=== PATIENT | male | born 1940 | race American Indian/Alaskan Native ===

== ENCOUNTER 2018-06-25 18:34 | Inpatient (IN) | payer MEDICARE ==
[2018-06-25 19:02] VITALS: BMI 20.3
[2018-06-25 19:11] LABS: BASO # 0.02 K/mm3 (0.0-2.0); BASO % 0.3 % (0.0-3.0); EOS % 0.5 % (1.5-5.0); GRAN # 4.03 (1.4-6.5); GRAN % 66.9 % (50.0-68.0); HEMOGLOBIN 13.1 g/dL (14.0-18.0); LYMPH # 1.5 (1.2-3.4); LYMPH % 24.8 % (22.0-35.0); MEAN CELL VOLUME 84.9 fl (80.0-105.0); MEAN CORPUSCULAR HEMOGLOBIN 27.4 pg (25.0-35.0); MEAN CORPUSCULAR HGB CONC 32.3 g/dl (31.0-37.0); MEAN PLATELET VOLUME 8.9 fl (7.0-11.0); MONO # 0.5 (0.1-0.6); MONO % 7.5 % (1.0-6.0); RBC 4.78 10^6/uL (3.5-6.1); RED CELL DISTRIBUTION WIDTH 14.5 % (11.5-14.5)
[2018-06-25 19:21] LABS: ALB/GLOB RATIO 1.1 (1.1-1.8); ALBUMIN 4.4 g/dL (3.0-4.8); BLOOD UREA NITROGEN 18 mg/dL (7-21); CALCIUM 8.9 mg/dL (8.4-10.5); GFR NON-AFRICAN AMERICAN > 60
--- NOTE | 2018-06-25 19:24 | ED PDOC ---
Arrival/HPI - General Time Seen by Provider: 06/25/18 18:44 Historian: Family - History of Present Illness Narrative History of Present Illness (Text): 06/25/18 19:15 77 year old male, with past medical history of CVA s/p right sided hemiparesis, presents to the ED via EMS accompanied by family s/p seizure prior to arrival. Daughter-in law states patient was sitting on the couch when he began "drooling", which was soon followed by tonic clonic activity. Patient was reportedly seizing for 2 minutes and then began foaming at the mouth. Daughter- in law states patient became pulseless following the incident, when she provided 1 round of compression with immediate return of circulation. EMS was immediately called and found patient to be diaphoretic and subsequently brought to the ED for evaluation. Upon arrival to the ED, patient appears post-ictal and does not verbalize any complaints. Son denies any fall or any medical complaints prior to incident. ROS limited secondary to patient's clinical condition. PMD: Dr. Cash Time/Duration: Prior to Arrival Symptom Onset: Gradual Symptom Course: Unchanged Activities at Onset: Light Context: Home Past Medical History - Provider Review Nursing Documentation Reviewed: Yes Family/Social History - Physician Review Nursing Documentation Reviewed: Yes Family/Social History: Unknown Family HX Allergies/Home Meds Allergies/Adverse Reactions: Allergies No Known Allergies Allergy (Verified 06/25/18 18:57) Home Medications: Home Meds Medication Instructions Recorded Confirmed Aspirin [Aspirin Chewable] 81 mg PO DAILY 06/25/18 06/25/18 Tamsulosin [Flomax] 0.4 mg PO DAILY 06/25/18 06/25/18 amLODIPine [Norvasc] 10 mg PO DAILY 06/25/18 06/25/18 Review of Systems - Review of Systems Systems not reviewed;Unavailable: Other (Post-ictal) Neurological: Seizure Physical Exam Vital Signs Reviewed: Yes Vital Signs Temp Pulse Resp BP Pulse Ox 06/25/18 19:15 98.1 F 97 H 20 143/61 97 Temperature: Afebrile Blood Pressure: Normal Pulse: Regular Respiratory Rate: Normal Appearance: Positive for: Well-Appearing, Non-Toxic, Comfortable Pain Distress: None Mental Status: Positive for: Confused Finger Stick Blood Glucose: 130 - Systems Exam Head: Present: Atraumatic, Normocephalic Pupils: Present: PERRL Extroacular Muscles: Present: EOMI Conjunctiva: Present: Normal Mouth: Present: Moist Mucous Membranes, Normal Tounge (no bite scott to tongue) Respiratory/Chest: Present: Good Air Exchange, Other (Crackles noted to right lung field ). No: Respiratory Distress, Accessory Muscle Use Cardiovascular: Present: Regular Rate and Rhythm, Normal S1, S2. No: Murmurs Abdomen: No: Tenderness, Distention, Peritoneal Signs Back: Present: Normal Inspection Upper Extremity: Present: Other (Right sided hemiparesis). No: Cyanosis, Edema Lower Extremity: Present: Other (Right sided hemiparesis). No: Edema Neurological: Present: GCS=15, CN II-XII Intact Skin: Present: Warm, Dry, Normal Color. No: Rashes Psychiatric: Present: Alert Medical Decision Making ED Course and Treatment: 06/25/18 18:59 Impression: 77 year old male presents to the ED for medical evaluation s/p seizure. Plan: -- CT of head -- EKG -- Labs -- Urinalysis -- Reassess and disposition Prior Visits: Notes and results from previous visits were reviewed. Progress Notes: 06/25/18 18:50 EKG: Ordered, reviewed, and independently interpreted the EKG. Rate : 76 BPM Rhythm : NSR Interpretation : Normal interval, left axis deviation. LVH. No ST elevations. EXAM: CT Head without Intravenous Contrast. Electronically signed on Jun 25, 2018 7:54:14 PM EST by: Barrie June M.D., IMPRESSION: 1. There is generalized parenchymal atrophy noted as demonstrated by symmetrical dilatation of ventricles and sulci. 2. Chronic periventricular and subcortical microvascular disease is seen. 3. Encephalomalacia involving left parietal lobe, compatible with an old infarct. 4. No acute intracranial pathology. 06/25/18 20:07 Witnessed seizure with tonic clonic movement. Given Ativan 2mg IV and seizure subsided. Paged resident for admission. 06/25/18 20:15 Case discussed with back office medical assistant and Dr. Bhavin Malone who is aware and agrees with the plan. Accepts patient into hospitalist service. - Lab Interpretations Lab Results: 06/25/18 19:04 Lab Results 06/25/18 19:04: WBC 6.0, RBC 4.78, Hgb 13.1 L, Hct 40.6 L, MCV 84.9, MCH 27.4, MCHC 32.3, RDW 14.5, Plt Count 265, MPV 8.9, Gran % 66.9, Lymph % (Auto) 24.8, [place] % (Auto) 7.5 H, Eos % (Auto) 0.5 L, Baso % (Auto) 0.3, Gran # 4.03, Lymph # (Auto) 1.5, [place] # (Auto) 0.5, Eos # (Auto) 0.0, Baso # (Auto) 0.02 - RAD Interpretation Radiology Orders: 06/25/18 19:00 HEAD W/O CONTRAST [CT] Stat - EKG Interpretation Interpreted by ED Physician: Yes Type: 12 lead EKG - Scribe Statement The provider has reviewed the documentation as recorded by the Scribe Gely Davison. All medical record entries made by the Марияibe were at my direction and personally dictated by me. I have reviewed the chart and agree that the record accurately reflects my personal performance of the history, physical exam, medical decision making, and the department course for this patient. I have also personally directed, reviewed, and agree with the discharge instructions and disposition. Disposition/Present on Arrival - Present on Arrival Any Indicators Present on Arrival: No History of DVT/PE: No History of Uncontrolled Diabetes: No Urinary Catheter: No History of Decub. Ulcer: No - Disposition Have Diagnosis and Disposition been Completed?: Yes Diagnosis: New onset seizure Disposition: HOSPITALIZED Disposition Time: 20:17 Patient Plan: Admission, Telemetry Condition: FAIR
[2018-06-25 19:32] LABS: TROPONIN I < 0.01 ng/mL
[2018-06-25 19:34] LABS: ALT/SGPT 21 U/L (7-56); AST/SGOT 43 U/L (17-59)
[2018-06-25] MEDS ORDERED: levETIRAcetam 1000mg/100ml NS 100 ML IV ONE (20:18)
[2018-06-25] MEDS ORDERED: levETIRAcetam 1000mg/100ml NS 100 ML IV SCH (22:00)
--- NOTE | 2018-06-25 22:10 | CP.PCM.HP ---
History of Present Illness - History of Present Illness History of Present Illness: Francisco Javier Varela DO PGY1 - Internal Medicine Warp Preparer - Medicine H&P 77M w/ a PMH of CVA w/ residual R sided deficit, HTN, BPH who prsented to [facility] ED on 06/25/18 brought in by ambulance after family members witnessed patient having seizure like symptoms prior to arrival. Due to patient's condition unable to obtain ROS/HPI from patient, HPI supplemented from family (Daughter in law and son at bedside, as well as chart review). Family reported patient was watching TV when he was found to have a blank staring ahead, and drooling while he was drinking water; developed rigid whole body stiffness, exhibited diffuse tonic/ clonic tremors of UE/LE and foaming at the mouth all which lasted for approximately 2 min. While on phone w/ EMS daughter reported patient lost pulses; became apneic and cyanotic. Subsequently underwent 1 round of CPR by daughter and ROSC was obtained. While patient was in ED; ED staff witnessed patient to have seizure like activity and administered Ativan 2mg IVP once. In the days prior to seizure no changes in vision, weakness. It was reported patient was independent and able to ambulate w/ walker within house. ROS unobtainable at this time due to patient condition. PMD: [facility] Rx: Norvasc 10mg QD, ASA 81 QD, Social: Denies PMH: As above PSH: TURP - October 2017 Allergies: NKDA Family Hx: Denies fam hx sz, Mother+ Father passed of [place] ; Son has DM Present on Admission - Present on Admission Any Indicators Present on Admission: No Review of Systems - Review of Systems Systems not reviewed;Unavailable: Acuity of Condition Past Patient History - Past Social History Smoking Status: Former Smoker - CARDIAC Hx Cardiac Disorders: Yes Hx Hypertension: Yes - NEUROLOGICAL Hx Neurological Disorder: Yes HX Cerebrovascular Accident: Yes (right side paralysis) - PSYCHIATRIC Hx Substance Use: No - SURGICAL HISTORY Hx Surgeries: No Meds Allergies/Adverse Reactions: Allergies Allergy/AdvReac Type Severity Reaction Status Date / Time No Known Allergies Allergy Verified 06/25/18 18:57 Physical Exam - Constitutional Additional comments: Lethargic/ Somnolent - Head Exam Head Exam: ATRAUMATIC, NORMOCEPHALIC - Eye Exam Additional comments: Difficult to assess tongue; due to persistent jaw clench Eyes: Pupils constricted however reactive to light; Rightward beating nystagmus appreciated; Pupils equal bilaterally - Respiratory Exam Respiratory Exam: Clear to Auscultation Bilateral, NORMAL BREATHING PATTERN - Cardiovascular Exam Cardiovascular Exam: REGULAR RHYTHM, RRR, +S1, +S2. absent: Systolic Murmur - GI/Abdominal Exam GI & Abdominal Exam: Normal Bowel Sounds, Soft - Extremities Exam Extremities exam: Positive for: pedal pulses present (BL DP/PT 1+ ). Negative for: pedal edema - Neurological Exam Additional comments: Not awake or alert Spontaneous eye movement w/ sternal rub Withdraws from pain GCS 9 Brisk reflex R > L - Skin Skin Exam: Dry, Intact, Normal Color, Warm Results - Vital Signs Recent Vital Signs: Last Vital Signs Temp 98.1 F 06/25/18 19:15 Pulse 96 H 06/25/18 20:47 Resp 23 06/25/18 20:47 BP 155/73 H 06/25/18 20:47 Pulse Ox 99 06/25/18 20:47 - Labs Result Diagrams: 06/25/18 19:04 06/25/18 19:04 Labs: Laboratory Results - last 24 hr 06/25/18 06/25/18 06/25/18 18:46 19:04 19:04 WBC 6.0 RBC 4.78 Hgb 13.1 L Hct 40.6 L MCV 84.9 MCH 27.4 MCHC 32.3 RDW 14.5 Plt Count 265 MPV 8.9 Gran % 66.9 Lymph % (Auto) 24.8 [place] % (Auto) 7.5 H Eos % (Auto) 0.5 L Baso % (Auto) 0.3 Gran # 4.03 Lymph # (Auto) 1.5 [place] # (Auto) 0.5 Eos # (Auto) 0.0 Baso # (Auto) 0.02 Sodium 139 Potassium 3.7 Chloride 103 Carbon Dioxide 22 Anion Gap 18 BUN 18 Creatinine 0.9 Est GFR ( Amer) > 60 Est GFR (Non-Af Amer) > 60 POC Glucose (mg/dL) 130 H Random Glucose 131 H Calcium 8.9 Magnesium 2.2 Total Bilirubin 0.5 AST 43 ALT 21 Alkaline Phosphatase 81 Lactate Dehydrogenase 649 Total Creatine Kinase 143 Troponin I < 0.01 Total Protein 8.3 Albumin 4.4 Globulin 3.9 Albumin/Globulin Ratio 1.1 Alcohol, Quantitative 12/31/18 19:04 WBC RBC Hgb Hct MCV MCH MCHC RDW Plt Count MPV Gran % Lymph % (Auto) [place] % (Auto) Eos % (Auto) Baso % (Auto) Gran # Lymph # (Auto) [place] # (Auto) Eos # (Auto) Baso # (Auto) Sodium Potassium Chloride Carbon Dioxide Anion Gap BUN Creatinine Est GFR ( Amer) Est GFR (Non-Af Amer) POC Glucose (mg/dL) Random Glucose Calcium Magnesium Total Bilirubin AST ALT Alkaline Phosphatase Lactate Dehydrogenase Total Creatine Kinase Troponin I Total Protein Albumin Globulin Albumin/Globulin Ratio Alcohol, Quantitative < 10 Assessment & Plan - Assessment and Plan (Free Text) Assessment: 77M w/ a PMH of CVA w/ residual R sided deficit but retained independence in ADLs, HTN, BPH who prsented to [facility] ED on 06/25/18 brought in by ambulance after family members witnessed patient having seizure like symptoms prior to arrival. Patient to be admitted to ICU for management/ treatment of New onset seizure vs worsening of preexisting stroke vs new onset stroke, ACS r/o, and Aspiration pna. New Onset Seizure - Etiology uncertain however given PMH of stroke, must r/o new onset stroke or worsening of previous stroke Difficult to assess for new onset focal deficit at this time ; repeat seizure witnessed in the ED 06/25 - CT Head - No acute stroke; prior Left parietal infarct visualized, Chronic microvascular disease MRI Brain pending Will load w/ ASA 600mg Recta x1 now; Will hold home lipitor due to NPO Start ASA 300mg rectal QD 06/26 Start ativan 2mg Q4H PRN seizure Loaded w/ 1gm Keppra in ED Start 1gm Keppra Q12 on 05/26 Seizure precaution Fall precaution Strict NPO for now Swallow eval/ tx PT Eval + Tx Monitor neuro status; Neuro Consulted, Appreciate reccs ACS r/o Patient underwent 1 round CPR in field as per family member; Daughter reports patient possibly aspirated during seizure episode (was drinking water prior to episode) First Trop negative; Will trend trop x2 over 24H EKG in ED shows no ST elevation; Will need to compare w/ baseline - Repeat EKG in AM Lipid panel pending HbA1C pending Maintain Map >65 Cardiology consulted, appreciate reccs Aspiration PNA vs Chemical Pneumonitis 06/25 - CXR does not show any infiltrate or effusion - as interpreted by me Repeat CXR AM ABG w/ shock NOW to establish baseline; Evaluate lactate Repeat ABG AM F/u wbc in AM End tidal CO2 - r/o retention Maintain O2 Sat >95% HOB >45deg; Aspiration precautions Hx HTN Will allow permissive HTN Hold Home norvasc Avoid aggressive and sudden blood pressure drops due to risk of watershed infarct Maintain SBP <220; Diastolic <110 Prophylaxis GI: Protonix IVP DVT: Heparin 5000 Q12 Patient was seen and evaluated at bedside; w/ attending physician Dr. Kira Varela DO PGY1 Internal Medicine Warp Preparer - Medicine H&P - Date & Time Date: 06/26/18 Time: 00:05
[2018-06-25 22:45] LABS: ARTERIAL BLOOD GAS HCO3 27.2 mmol/L (21-28); ARTERIAL BLOOD GAS O2 SAT 98.4 % (95-98); ARTERIAL BLOOD GAS PCO2 46 mm/Hg (35-45); ARTERIAL BLOOD GAS PH 7.38 (7.35-7.45); ARTERIAL BLOOD GAS TCO2 28.6 mmol.L (22-28)
[2018-06-26 00:57] LABS: PH,URINE 6.5 (4.7-8.0); URINE BILIRUBIN NEGATIVE (NEGATIVE); URINE BLOOD SMALL (NEGATIVE); URINE GLUCOSE (UA) NEGATIVE (NEGATIVE); URINE LEUKOCYTE ESTERASE SMALL Leu/uL (NEGATIVE); URINE PROTEIN 30 mg/dL (<30 mg/dL); URINE UROBILINOGEN 0.2 E.U./dL (<1 E.U./dL)
[2018-06-26 00:58] LABS: URINE APPEARANCE SL CLOUDY (CLEAR); URINE COLOR YELLOW (YELLOW)
[2018-06-26 01:15] LABS: URINE BACTERIA MANY /hpf; URINE EPITHELIAL CELLS 0 - 2 /hpf (0-5)
[2018-06-26 02:02] LABS: BARBITURATES, UR NEGATIVE (NEGATIVE); BENZODIAZEPINES, UR NEGATIVE (NEGATIVE); OPIATES, UR NEGATIVE (NEGATIVE); PHENCYCLIDINE, UR NEGATIVE (NEGATIVE)
[2018-06-26 05:49] LABS: GRAN # 5.68 (1.4-6.5); GRAN % 78.9 % (50.0-68.0); MEAN CELL VOLUME 82.2 fl (80.0-105.0); MEAN CORPUSCULAR HEMOGLOBIN 26.4 pg (25.0-35.0); MEAN CORPUSCULAR HGB CONC 32.2 g/dl (31.0-37.0); MONO # 0.5 (0.1-0.6); MONO % 7.1 % (1.0-6.0); RBC 4.54 10^6/uL (3.5-6.1); RED CELL DISTRIBUTION WIDTH 14.3 % (11.5-14.5); WHITE BLOOD COUNT 7.2 10^3/uL (4.5-11.0)
[2018-06-26 06:06] LABS: LDL CHOLESTEROL 79 mg/dL (0-129)
[2018-06-26 06:46] LABS: ALB/GLOB RATIO 1.1 (1.1-1.8); ALBUMIN 3.7 g/dL (3.0-4.8); ALT/SGPT 31 U/L (7-56); AST/SGOT 34 U/L (17-59); BLOOD UREA NITROGEN 13 mg/dL (7-21); CALCIUM 8.9 mg/dL (8.4-10.5); GFR NON-AFRICAN AMERICAN > 60; HDL CHOLESTEROL 51 mg/dL (29-60)
--- NOTE | 2018-06-26 09:08 | CP.PCM.CON ---
<AveryBiju - Last Filed: 06/26/18 11:39> History of Present Illness - History of Present Illness History of Present Illness: Biju Varela Internal Medicine Resident- Consult Note on Behalf of Critical Care Team Subjective: Patient is a 77 year old male with a past medical history of CVA w/ residual R sided deficit, HTN, BPH who was admitted for evaluation and treatment of witnessed seizure like activity. As per records the event included tonic/clonic tremors of UE/LE and foaming at the mouth which lasted approximately 2 minutes. Additionally it was reported that the patient lost pulses and cyanotic during the eposide. ROSC was obtained s/p 1 round of cpr. Seizure like activity again noted in the emergency department which subsided after Ativan 2mg IVP once. Critical care team was consulted for management of aforementioned symptoms. Patient seen and examined at bedside. Patient is awake, alert, follows commands, but is aphasic. Offers no complaints at this time. Denies fever, chills, chest pain, SOB, abdominal pain, nausea, vomiting, diarrhea, constipation, and urinary symptoms. 12 point ROS negative except as indicated in the HPI PMHx: CVA w/ residual R sided deficit, HTN, BPH PSHx: TURP - October 2017 Allergies: NKDA Social hHx: as per records - negative ETOH, negative tobacco use, negative illicit drug use Family Hx: Mother and Father passed of [place] Home Rx: Norvasc 10mg QD, ASA 81 QD, PMD: [facility] Physical Examination: - Constitutional Additional comments: NAD, resting comfortably - Head Exam Head Exam: ATRAUMATIC, NORMOCEPHALIC - Eye Exam Eye Exam: EOMI, OLGA - Respiratory Exam Respiratory Exam: Clear to Auscultation Bilateral, NORMAL BREATHING PATTERN - Cardiovascular Exam Cardiovascular Exam: REGULAR RHYTHM, RRR, +S1, +S2. absent: Systolic Murmur - GI/Abdominal Exam GI & Abdominal Exam: Normal Bowel Sounds, Soft - Extremities Exam Extremities exam: no clubbing, no cyanosis, no edema - Neurological Exam Neurological Exam: awake, alert, responds to verbal stimuli, follows commands, moves extremities past midline, aphasic speech pattern - Skin Skin Exam: Dry, Intact, Normal Color, Warm Assessment and Plan: Patient is a 77 year old male with a past medical history of CVA w/ residual R sided deficit, HTN, BPH who was admitted for evaluation and treatment of witnessed seizure like activity and pulselessness. Patient was transferred to the intensive care unit for further management. Neurology: New Onset Seizure - 06/25 CT Head without Intravenous Contrast-1. There is generalized parenchymal atrophy noted as demonstrated by symmetrical dilatation of ventricles and sulci. 2. Chronic periventricular and subcortical microvascular disease is seen. 3. Encephalomalacia involving left parietal lobe, compatible with an old infarct. 4. No acute intracranial patholog - Brain MRI Brain without contrast ordered and pending - Will hold home lipitor due to NPO - continue ativan 2mg Q4H PRN seizure - Continue keppra 1000mg IV q12 - Start 1gm Keppra Q12 on 06/26/18 - Seizure precaution - Fall precaution - Strict NPO for now - Swallow eval/ tx - PT Eval + Tx - Neuro Consulted (Dr. Damian)- Appreciate recs Cardiovascular ACS r/o - EKG on admission- normal sinus rhythm- HR 76bpm, QTc 447ms - Troponin normal x 2 - Lipid panel- reviewed- no elevated lipid products - HbA1C pending - Maintain Map > 65 - Cardiology consulted (Dr. Cohn)- appreciate recommendations Hx HTN - Will allow permissive HTN - Hold Home norvasc Pulmnology - 06/25- CXR no active disease - Maintain O2 Sat >95% - HOB > 45deg; Aspiration precautions GI Prophylaxis - continue Protonix 40mg IV Daily Heme Anemia - normocytic - 12 from 13.1 - monitor closely via AM CBC Renal Hypokalemia - repleted with KCl 10 meq x 2 - mag within normal limits Infectious Disease Urinary Tract Infection - will not treat at this time Dispo: patient is hemodynamically stable [facility] Patient case discussed with and plan approved by attending physician, Dr. Malone. Past Patient History - Past Social History Smoking Status: Former Smoker - CARDIAC Hx Cardiac Disorders: Yes Hx Hypertension: Yes - PULMONARY Hx Respiratory Disorders: No - NEUROLOGICAL Hx Neurological Disorder: Yes HX Cerebrovascular Accident: Yes (right side paralysis) - HEENT Hx HEENT Problems: No - RENAL Hx Chronic Kidney Disease: No - ENDOCRINE/METABOLIC Hx Endocrine Disorders: No - HEMATOLOGICAL/ONCOLOGICAL Hx Blood Disorders: No - INTEGUMENTARY Hx Dermatological Problems: No - MUSCULOSKELETAL/RHEUMATOLOGICAL Hx Falls: Yes - GASTROINTESTINAL Hx Gastrointestinal Disorders: No - GENITOURINARY/GYNECOLOGICAL Hx Genitourinary Disorders: No - PSYCHIATRIC Hx Substance Use: No - SURGICAL HISTORY Hx Surgeries: No Meds Allergies/Adverse Reactions: Allergies Allergy/AdvReac Type Severity Reaction Status Date / Time No Known Allergies Allergy Verified 06/25/18 18:57 - Medications Medications: Current Medications Aspirin (Aspirin Supp) 300 mg RC DAILY [facility] Heparin Sodium (Porcine) (Heparin) 5,000 units SC Q12 [facility]; Protocol Last Admin: 06/26/18 01:17 Dose: 5,000 units Levetiracetam (Keppra 1000mg/100ml Ns) 100 mls @ 460 mls/hr IV Q12 [facility] Potassium Chloride (Potassium Chloride 10 Meq/100 Ml) 10 meq in 100 mls @ 50 mls/hr IVPB Q2H [facility] Stop: 06/26/18 10:59 Last Admin: 06/26/18 07:23 Dose: 50 mls/hr Lorazepam (Ativan) 2 mg IVP Q4H PRN; Protocol PRN Reason: Seizure activity Pantoprazole Sodium (Protonix Inj) 40 mg IVP DAILY [facility] Results - Vital Signs Recent Vital Signs: Last Vital Signs Temp 98.3 F 06/25/18 22:30 Pulse 83 06/26/18 06:00 Resp 23 06/25/18 22:30 BP 153/85 H 06/25/18 22:30 Pulse Ox 98 06/25/18 22:30 - Labs Result Diagrams: 06/26/18 05:00 06/26/18 05:00 Labs: Laboratory Results - last 24 hr 06/25/18 06/25/18 06/25/18 18:46 19:04 19:04 WBC 6.0 RBC 4.78 Hgb 13.1 L Hct 40.6 L MCV 84.9 MCH 27.4 MCHC 32.3 RDW 14.5 Plt Count 265 MPV 8.9 Gran % 66.9 Lymph % (Auto) 24.8 [place] % (Auto) 7.5 H Eos % (Auto) 0.5 L Baso % (Auto) 0.3 Gran # 4.03 Lymph # (Auto) 1.5 [place] # (Auto) 0.5 Eos # (Auto) 0.0 Baso # (Auto) 0.02 pCO2 pO2 HCO3 ABG pH ABG Total CO2 ABG O2 Saturation ABG Base Excess ABG Potassium Glucose Lactate FiO2 Sodium 139 Potassium 3.7 Chloride 103 Carbon Dioxide 22 Anion Gap 18 BUN 18 Creatinine 0.9 Est GFR ( Amer) > 60 Est GFR (Non-Af Amer) > 60 POC Glucose (mg/dL) 130 H Random Glucose 131 H Calcium 8.9 Phosphorus Magnesium 2.2 Total Bilirubin 0.5 AST 43 ALT 21 Alkaline Phosphatase 81 Lactate Dehydrogenase 649 Total Creatine Kinase 143 Troponin I < 0.01 Total Protein 8.3 Albumin 4.4 Globulin 3.9 Albumin/Globulin Ratio 1.1 Triglycerides Cholesterol LDL Cholesterol Direct HDL Cholesterol Arterial Blood Potassium Urine Color Urine Appearance Urine pH Ur Specific [place] Urine Protein Urine Glucose (UA) Urine Ketones Urine Blood Urine Nitrate Urine Bilirubin Urine Urobilinogen Ur Leukocyte Esterase Urine RBC Urine WBC Ur Epithelial Cells Urine Bacteria Urine Opiates Screen Urine Methadone Screen Ur Barbiturates Screen Ur Phencyclidine Scrn Ur Amphetamines Screen U Benzodiazepines Scrn U Oth Cocaine Metabols U Cannabinoids Screen Alcohol, Quantitative 06/25/18 06/25/18 06/26/18 19:04 22:42 00:45 WBC RBC Hgb Hct MCV MCH MCHC RDW Plt Count MPV Gran % Lymph % (Auto) [place] % (Auto) Eos % (Auto) Baso % (Auto) Gran # Lymph # (Auto) [place] # (Auto) Eos # (Auto) Baso # (Auto) pCO2 46 H pO2 89.0 HCO3 27.2 ABG pH 7.38 ABG Total CO2 28.6 H ABG O2 Saturation 98.4 H ABG Base Excess 1.5 ABG Potassium 3.1 L Glucose 125 H Lactate 0.9 FiO2 28.0 Sodium 138.0 Potassium Chloride 104.0 Carbon Dioxide Anion Gap BUN Creatinine Est GFR ( Amer) Est GFR (Non-Af Amer) POC Glucose (mg/dL) Random Glucose Calcium Phosphorus Magnesium Total Bilirubin AST ALT Alkaline Phosphatase Lactate Dehydrogenase Total Creatine Kinase Troponin I Total Protein Albumin Globulin Albumin/Globulin Ratio Triglycerides Cholesterol LDL Cholesterol Direct HDL Cholesterol Arterial Blood Potassium 3.1 L Urine Color Yellow Urine Appearance Sl cloudy Urine pH 6.5 Ur Specific [place] 1.020 Urine Protein 30 H Urine Glucose (UA) Negative Urine Ketones Negative Urine Blood Small H Urine Nitrate Positive H Urine Bilirubin Negative Urine Urobilinogen 0.2 Ur Leukocyte Esterase Small H Urine RBC 5 - 10 H Urine WBC 5 - 10 H Ur Epithelial Cells 0 - 2 Urine Bacteria Many Urine Opiates Screen Urine Methadone Screen Ur Barbiturates Screen Ur Phencyclidine Scrn Ur Amphetamines Screen U Benzodiazepines Scrn U Oth Cocaine Metabols U Cannabinoids Screen Alcohol, Quantitative < 10 06/26/18 06/26/18 06/26/18 00:45 03:25 05:00 WBC RBC Hgb Hct MCV MCH MCHC RDW Plt Count MPV Gran % Lymph % (Auto) [place] % (Auto) Eos % (Auto) Baso % (Auto) Gran # Lymph # (Auto) [place] # (Auto) Eos # (Auto) Baso # (Auto) pCO2 pO2 HCO3 ABG pH ABG Total CO2 ABG O2 Saturation ABG Base Excess ABG Potassium Glucose Lactate FiO2 Sodium 137 Potassium 3.5 L Chloride 105 Carbon Dioxide 27 Anion Gap 9 L BUN 13 Creatinine 0.7 L Est GFR ( Amer) > 60 Est GFR (Non-Af Amer) > 60 POC Glucose (mg/dL) Random Glucose 96 Calcium 8.9 Phosphorus 2.8 Magnesium 2.0 Total Bilirubin 0.4 AST 34 ALT 31 Alkaline Phosphatase 82 Lactate Dehydrogenase Total Creatine Kinase Troponin I 0.02 D Total Protein 7.1 Albumin 3.7 Globulin 3.4 Albumin/Globulin Ratio 1.1 Triglycerides 30 L Cholesterol 136 LDL Cholesterol Direct 79 HDL Cholesterol 51 Arterial Blood Potassium Urine Color Urine Appearance Urine pH Ur Specific [place] Urine Protein Urine Glucose (UA) Urine Ketones Urine Blood Urine Nitrate Urine Bilirubin Urine Urobilinogen Ur Leukocyte Esterase Urine RBC Urine WBC Ur Epithelial Cells Urine Bacteria Urine Opiates Screen Negative Urine Methadone Screen Negative Ur Barbiturates Screen Negative Ur Phencyclidine Scrn Negative Ur Amphetamines Screen Negative U Benzodiazepines Scrn Negative U Oth Cocaine Metabols Negative U Cannabinoids Screen Negative Alcohol, Quantitative 06/26/18 05:00 WBC 7.2 RBC 4.54 Hgb 12.0 L Hct 37.3 L MCV 82.2 MCH 26.4 MCHC 32.2 RDW 14.3 Plt Count 270 MPV 9.0 Gran % 78.9 H Lymph % (Auto) 14.0 L [place] % (Auto) 7.1 H Eos % (Auto) 0.0 L Baso % (Auto) 0.0 Gran # 5.68 Lymph # (Auto) 1.0 L [place] # (Auto) 0.5 Eos # (Auto) 0.0 Baso # (Auto) 0.00 pCO2 pO2 HCO3 ABG pH ABG Total CO2 ABG O2 Saturation ABG Base Excess ABG Potassium Glucose Lactate FiO2 Sodium Potassium Chloride Carbon Dioxide Anion Gap BUN Creatinine Est GFR ( Amer) Est GFR (Non-Af Amer) POC Glucose (mg/dL) Random Glucose Calcium Phosphorus Magnesium Total Bilirubin AST ALT Alkaline Phosphatase Lactate Dehydrogenase Total Creatine Kinase Troponin I Total Protein Albumin Globulin Albumin/Globulin Ratio Triglycerides Cholesterol LDL Cholesterol Direct HDL Cholesterol Arterial Blood Potassium Urine Color Urine Appearance Urine pH Ur Specific [place] Urine Protein Urine Glucose (UA) Urine Ketones Urine Blood Urine Nitrate Urine Bilirubin Urine Urobilinogen Ur Leukocyte Esterase Urine RBC Urine WBC Ur Epithelial Cells Urine Bacteria Urine Opiates Screen Urine Methadone Screen Ur Barbiturates Screen Ur Phencyclidine Scrn Ur Amphetamines Screen U Benzodiazepines Scrn U Oth Cocaine Metabols U Cannabinoids Screen Alcohol, Quantitative <Deo Malone - Last Filed: 06/26/18 17:21> Meds - Medications Medications: Current Medications Aspirin (Ecotrin) 325 mg PO DAILY [facility] Atorvastatin Calcium (Lipitor) 20 mg PO DIN [facility] Last Admin: 06/26/18 17:13 Dose: 20 mg Heparin Sodium (Porcine) (Heparin) 5,000 units SC Q12 [facility]; Protocol Last Admin: 06/26/18 09:43 Dose: 5,000 units Levetiracetam (Keppra 1000mg/100ml Ns) 100 mls @ 460 mls/hr IV Q12 [facility] Last Admin: 06/26/18 09:42 Dose: 460 mls/hr Ceftriaxone Sodium (Rocephin 1 Gram Ivpb) 1 gm in 100 mls @ 100 mls/hr IVPB DAILY [facility]; Protocol Last Admin: 06/26/18 17:13 Dose: 100 mls/hr Lorazepam (Ativan) 2 mg IVP Q4H PRN; Protocol PRN Reason: Seizure activity Pantoprazole Sodium (Protonix Inj) 40 mg IVP DAILY [facility] Last Admin: 06/26/18 09:42 Dose: 40 mg Results - Vital Signs Recent Vital Signs: Last Vital Signs Temp 98.3 F 06/25/18 22:30 Pulse 80 06/26/18 10:00 Resp 23 06/25/18 22:30 BP 153/85 H 06/25/18 22:30 Pulse Ox 98 06/25/18 22:30 - Labs Result Diagrams: 06/26/18 05:00 06/26/18 05:00 Labs: Laboratory Results - last 24 hr 06/25/18 06/25/18 06/25/18 18:46 19:04 19:04 WBC 6.0 RBC 4.78 Hgb 13.1 L Hct 40.6 L MCV 84.9 MCH 27.4 MCHC 32.3 RDW 14.5 Plt Count 265 MPV 8.9 Gran % 66.9 Lymph % (Auto) 24.8 [place] % (Auto) 7.5 H Eos % (Auto) 0.5 L Baso % (Auto) 0.3 Gran # 4.03 Lymph # (Auto) 1.5 [place] # (Auto) 0.5 Eos # (Auto) 0.0 Baso # (Auto) 0.02 pCO2 pO2 HCO3 ABG pH ABG Total CO2 ABG O2 Saturation ABG Base Excess ABG Potassium Glucose Lactate FiO2 Sodium 139 Potassium 3.7 Chloride 103 Carbon Dioxide 22 Anion Gap 18 BUN 18 Creatinine 0.9 Est GFR ( Amer) > 60 Est GFR (Non-Af Amer) > 60 POC Glucose (mg/dL) 130 H Random Glucose 131 H Calcium 8.9 Phosphorus Magnesium 2.2 Total Bilirubin 0.5 AST 43 ALT 21 Alkaline Phosphatase 81 Lactate Dehydrogenase 649 Total Creatine Kinase 143 Troponin I < 0.01 Total Protein 8.3 Albumin 4.4 Globulin 3.9 Albumin/Globulin Ratio 1.1 Triglycerides Cholesterol LDL Cholesterol Direct HDL Cholesterol Arterial Blood Potassium Urine Color Urine Appearance Urine pH Ur Specific [place] Urine Protein Urine Glucose (UA) Urine Ketones Urine Blood Urine Nitrate Urine Bilirubin Urine Urobilinogen Ur Leukocyte Esterase Urine RBC Urine WBC Ur Epithelial Cells Urine Bacteria Urine Opiates Screen Urine Methadone Screen Ur Barbiturates Screen Ur Phencyclidine Scrn Ur Amphetamines Screen U Benzodiazepines Scrn U Oth Cocaine Metabols U Cannabinoids Screen Alcohol, Quantitative 06/25/18 06/25/18 06/26/18 19:04 22:42 00:45 WBC RBC Hgb Hct MCV MCH MCHC RDW Plt Count MPV Gran % Lymph % (Auto) [place] % (Auto) Eos % (Auto) Baso % (Auto) Gran # Lymph # (Auto) [place] # (Auto) Eos # (Auto) Baso # (Auto) pCO2 46 H pO2 89.0 HCO3 27.2 ABG pH 7.38 ABG Total CO2 28.6 H ABG O2 Saturation 98.4 H ABG Base Excess 1.5 ABG Potassium 3.1 L Glucose 125 H Lactate 0.9 FiO2 28.0 Sodium 138.0 Potassium Chloride 104.0 Carbon Dioxide Anion Gap BUN Creatinine Est GFR ( Amer) Est GFR (Non-Af Amer) POC Glucose (mg/dL) Random Glucose Calcium Phosphorus Magnesium Total Bilirubin AST ALT Alkaline Phosphatase Lactate Dehydrogenase Total Creatine Kinase Troponin I Total Protein Albumin Globulin Albumin/Globulin Ratio Triglycerides Cholesterol LDL Cholesterol Direct HDL Cholesterol Arterial Blood Potassium 3.1 L Urine Color Yellow Urine Appearance Sl cloudy Urine pH 6.5 Ur Specific [place] 1.020 Urine Protein 30 H Urine Glucose (UA) Negative Urine Ketones Negative Urine Blood Small H Urine Nitrate Positive H Urine Bilirubin Negative Urine Urobilinogen 0.2 Ur Leukocyte Esterase Small H Urine RBC 5 - 10 H Urine WBC 5 - 10 H Ur Epithelial Cells 0 - 2 Urine Bacteria Many Urine Opiates Screen Urine Methadone Screen Ur Barbiturates Screen Ur Phencyclidine Scrn Ur Amphetamines Screen U Benzodiazepines Scrn U Oth Cocaine Metabols U Cannabinoids Screen Alcohol, Quantitative < 10 06/26/18 06/26/18 06/26/18 00:45 03:25 05:00 WBC RBC Hgb Hct MCV MCH MCHC RDW Plt Count MPV Gran % Lymph % (Auto) [place] % (Auto) Eos % (Auto) Baso % (Auto) Gran # Lymph # (Auto) [place] # (Auto) Eos # (Auto) Baso # (Auto) pCO2 pO2 HCO3 ABG pH ABG Total CO2 ABG O2 Saturation ABG Base Excess ABG Potassium Glucose Lactate FiO2 Sodium 137 Potassium 3.5 L Chloride 105 Carbon Dioxide 27 Anion Gap 9 L BUN 13 Creatinine 0.7 L Est GFR ( Amer) > 60 Est GFR (Non-Af Amer) > 60 POC Glucose (mg/dL) Random Glucose 96 Calcium 8.9 Phosphorus 2.8 Magnesium 2.0 Total Bilirubin 0.4 AST 34 ALT 31 Alkaline Phosphatase 82 Lactate Dehydrogenase Total Creatine Kinase Troponin I 0.02 D Total Protein 7.1 Albumin 3.7 Globulin 3.4 Albumin/Globulin Ratio 1.1 Triglycerides 30 L Cholesterol 136 LDL Cholesterol Direct 79 HDL Cholesterol 51 Arterial Blood Potassium Urine Color Urine Appearance Urine pH Ur Specific [place] Urine Protein Urine Glucose (UA) Urine Ketones Urine Blood Urine Nitrate Urine Bilirubin Urine Urobilinogen Ur Leukocyte Esterase Urine RBC Urine WBC Ur Epithelial Cells Urine Bacteria Urine Opiates Screen Negative Urine Methadone Screen Negative Ur Barbiturates Screen Negative Ur Phencyclidine Scrn Negative Ur Amphetamines Screen Negative U Benzodiazepines Scrn Negative U Oth Cocaine Metabols Negative U Cannabinoids Screen Negative Alcohol, Quantitative 06/26/18 06/26/18 05:00 11:30 WBC 7.2 RBC 4.54 Hgb 12.0 L Hct 37.3 L MCV 82.2 MCH 26.4 MCHC 32.2 RDW 14.3 Plt Count 270 MPV 9.0 Gran % 78.9 H Lymph % (Auto) 14.0 L [place] % (Auto) 7.1 H Eos % (Auto) 0.0 L Baso % (Auto) 0.0 Gran # 5.68 Lymph # (Auto) 1.0 L [place] # (Auto) 0.5 Eos # (Auto) 0.0 Baso # (Auto) 0.00 pCO2 pO2 HCO3 ABG pH ABG Total CO2 ABG O2 Saturation ABG Base Excess ABG Potassium Glucose Lactate FiO2 Sodium Potassium Chloride Carbon Dioxide Anion Gap BUN Creatinine Est GFR ( Amer) Est GFR (Non-Af Amer) POC Glucose (mg/dL) Random Glucose Calcium Phosphorus Magnesium Total Bilirubin AST ALT Alkaline Phosphatase Lactate Dehydrogenase Total Creatine Kinase Troponin I < 0.01 D Total Protein Albumin Globulin Albumin/Globulin Ratio Triglycerides Cholesterol LDL Cholesterol Direct HDL Cholesterol Arterial Blood Potassium Urine Color Urine Appearance Urine pH Ur Specific [place] Urine Protein Urine Glucose (UA) Urine Ketones Urine Blood Urine Nitrate Urine Bilirubin Urine Urobilinogen Ur Leukocyte Esterase Urine RBC Urine WBC Ur Epithelial Cells Urine Bacteria Urine Opiates Screen Urine Methadone Screen Ur Barbiturates Screen Ur Phencyclidine Scrn Ur Amphetamines Screen U Benzodiazepines Scrn U Oth Cocaine Metabols U Cannabinoids Screen Alcohol, Quantitative Addendum Addendum: 06/26/18 17:21 Patient seen and examined. Case reviewed on round with housestaff. Agree with resident note above with the following additions/exceptions 77 year old male with a past medical history of CVA w/ residual R sided deficit, HTN, BPH admitted after being unresponsive at home. Doubt he went into cardiac arrest since only reports a brife chest compressions done at home. Likelly post-ictal state patient much improved this am following commands loaded with keppra f/u neuro recs for tx of seziures along with work up he appears to be able to maintain his own airway he does not appear to be in status can be downgraded from ICU level care Rest of care above Deo Malone MD Pulmonary Critical Care Attending
--- NOTE | 2018-06-26 09:22 | CT ---
Date of service: 06/25/2018 PROCEDURE: CT HEAD WITHOUT CONTRAST. HISTORY: seizure COMPARISON: None available. TECHNIQUE: Axial computed tomography images were obtained through the head/brain without intravenous contrast. Radiation dose: Total exam DLP = 1279.8 mGy-cm. This CT exam was performed using one or more of the following dose reduction techniques: Automated exposure control, adjustment of the mA and/or kV according to patient size, and/or use of iterative reconstruction technique. FINDINGS: HEMORRHAGE: No intracranial hemorrhage. BRAIN: No mass effect or edema. Atrophy. Chronic microvascular ischemic changes. Left parietal lobe encephalomalacia. Old left cerebellar infarction. VENTRICLES: Unremarkable. No hydrocephalus. CALVARIUM: Unremarkable. PARANASAL SINUSES: Unremarkable as visualized. No significant inflammatory changes. MASTOID AIR CELLS: Unremarkable as visualized. No inflammatory changes. OTHER FINDINGS: None. IMPRESSION: No acute intracranial pathology. Old left parietal and cerebellar infarctions. Age-related changes.
[2018-06-26] MEDS: levETIRAcetam 1000mg/100ml NS 100 ML IV SCH ×2 (09:42→21:50)
--- NOTE | 2018-06-26 10:10 | RAD ---
Date of service: 06/25/2018 HISTORY: seizure COMPARISON: No prior. FINDINGS: LUNGS: No active pulmonary disease. PLEURA: No significant pleural effusion identified, no pneumothorax apparent. CARDIOVASCULAR: Aortic atherosclerotic calcifications. Cardiomediastinal silhouette prominent OSSEOUS STRUCTURES: Degenerative changes. VISUALIZED UPPER ABDOMEN: Normal. OTHER FINDINGS: None. IMPRESSION: No active disease.
--- NOTE | 2018-06-26 10:38 | CARD ---
APPROVED REPORT Date of service: 06/25/2018 EKG Measurement Heart [id number] <Conclusion> Poor data quality, interpretation may be adversely affected Normal sinus rhythm Possible Left atrial enlargement Left ventricular hypertrophy Inferior infarct, age undetermined Abnormal ECG
--- NOTE | 2018-06-26 14:08 | CP.PCM.CON ---
History of Present Illness - History of Present Illness History of Present Illness: 77 yr old male who was brought in with what appears to be status epilpeticus. 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 Past Patient History - Past Social History Smoking Status: Former Smoker - CARDIAC Hx Cardiac Disorders: Yes Hx Hypertension: Yes - PULMONARY Hx Respiratory Disorders: No - NEUROLOGICAL Hx Neurological Disorder: Yes HX Cerebrovascular Accident: Yes (right side paralysis) - HEENT Hx HEENT Problems: No - RENAL Hx Chronic Kidney Disease: No - ENDOCRINE/METABOLIC Hx Endocrine Disorders: No - HEMATOLOGICAL/ONCOLOGICAL Hx Blood Disorders: No - INTEGUMENTARY Hx Dermatological Problems: No - MUSCULOSKELETAL/RHEUMATOLOGICAL Hx Falls: Yes - GASTROINTESTINAL Hx Gastrointestinal Disorders: No - GENITOURINARY/GYNECOLOGICAL Hx Genitourinary Disorders: No - PSYCHIATRIC Hx Substance Use: No - SURGICAL HISTORY Hx Surgeries: No Meds Allergies/Adverse Reactions: Allergies Allergy/AdvReac Type Severity Reaction Status Date / Time No Known Allergies Allergy Verified 06/27/18 09:03 - Medications Medications: Current Medications Aspirin (Aspirin Supp) 300 mg RC DAILY [facility] Heparin Sodium (Porcine) (Heparin) 5,000 units SC Q12 [facility]; Protocol Last Admin: 06/26/18 09:43 Dose: 5,000 units Levetiracetam (Keppra 1000mg/100ml Ns) 100 mls @ 460 mls/hr IV Q12 [facility] Last Admin: 06/26/18 09:42 Dose: 460 mls/hr Lorazepam (Ativan) 2 mg IVP Q4H PRN; Protocol PRN Reason: Seizure activity Pantoprazole Sodium (Protonix Inj) 40 mg IVP DAILY [facility] Last Admin: 06/26/18 09:42 Dose: 40 mg Results - Vital Signs Recent Vital Signs: Last Vital Signs Temp 98.3 F 06/25/18 22:30 Pulse 80 06/26/18 10:00 Resp 23 06/25/18 22:30 BP 153/85 H 06/25/18 22:30 Pulse Ox 98 06/25/18 22:30 - Labs Result Diagrams: 06/28/18 06:00 06/28/18 06:00 Labs: Laboratory Results - last 24 hr 06/25/18 06/25/18 06/25/18 18:46 19:04 19:04 WBC 6.0 RBC 4.78 Hgb 13.1 L Hct 40.6 L MCV 84.9 MCH 27.4 MCHC 32.3 RDW 14.5 Plt Count 265 MPV 8.9 Gran % 66.9 Lymph % (Auto) 24.8 [place] % (Auto) 7.5 H Eos % (Auto) 0.5 L Baso % (Auto) 0.3 Gran # 4.03 Lymph # (Auto) 1.5 [place] # (Auto) 0.5 Eos # (Auto) 0.0 Baso # (Auto) 0.02 pCO2 pO2 HCO3 ABG pH ABG Total CO2 ABG O2 Saturation ABG Base Excess ABG Potassium Glucose Lactate FiO2 Sodium 139 Potassium 3.7 Chloride 103 Carbon Dioxide 22 Anion Gap 18 BUN 18 Creatinine 0.9 Est GFR ( Amer) > 60 Est GFR (Non-Af Amer) > 60 POC Glucose (mg/dL) 130 H Random Glucose 131 H Calcium 8.9 Phosphorus Magnesium 2.2 Total Bilirubin 0.5 AST 43 ALT 21 Alkaline Phosphatase 81 Lactate Dehydrogenase 649 Total Creatine Kinase 143 Troponin I < 0.01 Total Protein 8.3 Albumin 4.4 Globulin 3.9 Albumin/Globulin Ratio 1.1 Triglycerides Cholesterol LDL Cholesterol Direct HDL Cholesterol Arterial Blood Potassium Urine Color Urine Appearance Urine pH Ur Specific [place] Urine Protein Urine Glucose (UA) Urine Ketones Urine Blood Urine Nitrate Urine Bilirubin Urine Urobilinogen Ur Leukocyte Esterase Urine RBC Urine WBC Ur Epithelial Cells Urine Bacteria Urine Opiates Screen Urine Methadone Screen Ur Barbiturates Screen Ur Phencyclidine Scrn Ur Amphetamines Screen U Benzodiazepines Scrn U Oth Cocaine Metabols U Cannabinoids Screen Alcohol, Quantitative 06/25/18 06/25/18 06/26/18 19:04 22:42 00:45 WBC RBC Hgb Hct MCV MCH MCHC RDW Plt Count MPV Gran % Lymph % (Auto) [place] % (Auto) Eos % (Auto) Baso % (Auto) Gran # Lymph # (Auto) [place] # (Auto) Eos # (Auto) Baso # (Auto) pCO2 46 H pO2 89.0 HCO3 27.2 ABG pH 7.38 ABG Total CO2 28.6 H ABG O2 Saturation 98.4 H ABG Base Excess 1.5 ABG Potassium 3.1 L Glucose 125 H Lactate 0.9 FiO2 28.0 Sodium 138.0 Potassium Chloride 104.0 Carbon Dioxide Anion Gap BUN Creatinine Est GFR ( Amer) Est GFR (Non-Af Amer) POC Glucose (mg/dL) Random Glucose Calcium Phosphorus Magnesium Total Bilirubin AST ALT Alkaline Phosphatase Lactate Dehydrogenase Total Creatine Kinase Troponin I Total Protein Albumin Globulin Albumin/Globulin Ratio Triglycerides Cholesterol LDL Cholesterol Direct HDL Cholesterol Arterial Blood Potassium 3.1 L Urine Color Yellow Urine Appearance Sl cloudy Urine pH 6.[address] [place] 1.020 Urine Protein 30 H Urine Glucose (UA) Negative Urine Ketones Negative Urine Blood Small H Urine Nitrate Positive H Urine Bilirubin Negative Urine Urobilinogen 0.2 Ur Leukocyte Esterase Small H Urine RBC 5 - 10 H Urine WBC 5 - 10 H Ur Epithelial Cells 0 - 2 Urine Bacteria Many Urine Opiates Screen Urine Methadone Screen Ur Barbiturates Screen Ur Phencyclidine Scrn Ur Amphetamines Screen U Benzodiazepines Scrn U Oth Cocaine Metabols U Cannabinoids Screen Alcohol, Quantitative < 10 06/26/18 06/26/18 06/26/18 00:45 03:25 05:00 WBC RBC Hgb Hct MCV MCH MCHC RDW Plt Count MPV Gran % Lymph % (Auto) [place] % (Auto) Eos % (Auto) Baso % (Auto) Gran # Lymph # (Auto) [place] # (Auto) Eos # (Auto) Baso # (Auto) pCO2 pO2 HCO3 ABG pH ABG Total CO2 ABG O2 Saturation ABG Base Excess ABG Potassium Glucose Lactate FiO2 Sodium 137 Potassium 3.5 L Chloride 105 Carbon Dioxide 27 Anion Gap 9 L BUN 13 Creatinine 0.7 L Est GFR ( Amer) > 60 Est GFR (Non-Af Amer) > 60 POC Glucose (mg/dL) Random Glucose 96 Calcium 8.9 Phosphorus 2.8 Magnesium 2.0 Total Bilirubin 0.4 AST 34 ALT 31 Alkaline Phosphatase 82 Lactate Dehydrogenase Total Creatine Kinase Troponin I 0.02 D Total Protein 7.1 Albumin 3.7 Globulin 3.4 Albumin/Globulin Ratio 1.1 Triglycerides 30 L Cholesterol 136 LDL Cholesterol Direct 79 HDL Cholesterol 51 Arterial Blood Potassium Urine Color Urine Appearance Urine pH Ur Specific [place] Urine Protein Urine Glucose (UA) Urine Ketones Urine Blood Urine Nitrate Urine Bilirubin Urine Urobilinogen Ur Leukocyte Esterase Urine RBC Urine WBC Ur Epithelial Cells Urine Bacteria Urine Opiates Screen Negative Urine Methadone Screen Negative Ur Barbiturates Screen Negative Ur Phencyclidine Scrn Negative Ur Amphetamines Screen Negative U Benzodiazepines Scrn Negative U Oth Cocaine Metabols Negative U Cannabinoids Screen Negative Alcohol, Quantitative 06/26/18 06/26/18 05:00 11:30 WBC 7.2 RBC 4.54 Hgb 12.0 L Hct 37.3 L MCV 82.2 MCH 26.4 MCHC 32.2 RDW 14.3 Plt Count 270 MPV 9.0 Gran % 78.9 H Lymph % (Auto) 14.0 L [place] % (Auto) 7.1 H Eos % (Auto) 0.0 L Baso % (Auto) 0.0 Gran # 5.68 Lymph # (Auto) 1.0 L [place] # (Auto) 0.5 Eos # (Auto) 0.0 Baso # (Auto) 0.00 pCO2 pO2 HCO3 ABG pH ABG Total CO2 ABG O2 Saturation ABG Base Excess ABG Potassium Glucose Lactate FiO2 Sodium Potassium Chloride Carbon Dioxide Anion Gap BUN Creatinine Est GFR ( Amer) Est GFR (Non-Af Amer) POC Glucose (mg/dL) Random Glucose Calcium Phosphorus Magnesium Total Bilirubin AST ALT Alkaline Phosphatase Lactate Dehydrogenase Total Creatine Kinase Troponin I < 0.01 D Total Protein Albumin Globulin Albumin/Globulin Ratio Triglycerides Cholesterol LDL Cholesterol Direct HDL Cholesterol Arterial Blood Potassium Urine Color Urine Appearance Urine pH Ur Specific [place] Urine Protein Urine Glucose (UA) Urine Ketones Urine Blood Urine Nitrate Urine Bilirubin Urine Urobilinogen Ur Leukocyte Esterase Urine RBC Urine WBC Ur Epithelial Cells Urine Bacteria Urine Opiates Screen Urine Methadone Screen Ur Barbiturates Screen Ur Phencyclidine Scrn Ur Amphetamines Screen U Benzodiazepines Scrn U Oth Cocaine Metabols U Cannabinoids Screen Alcohol, Quantitative Assessment & Plan - Assessment and Plan (Free Text) Assessment: 77 yr old male with new onset seizure that could be secondary to stroke, now awake but with some language deficits. Plan: 1. MRI [facility] 2. ECHO 3. CTA head and neck 4. aspirin 325 mg po daily 5. EEG in am 6. Keppra 500 mg iv or po bid. Thank you Dr. elizondo
[2018-06-26] MEDS ORDERED: Iohexol 350 MG/100 ML VIAL ONE (15:27)
--- NOTE | 2018-06-26 16:13 | CON ---
DATE OF CONSULTATION: 06/26/2018 REQUESTING PHYSICIAN: Dr. Varela REASON FOR CONSULTATION: Possible cardiac arrest. HISTORY: This is a 77-year-old man with a prior history of cerebrovascular accident, who was brought to the emergency room after witnessed seizure at home apparently. He was in the presence of his daughter. The emergency squad was called after he had evidence of a grand mal seizure. According to the chart, he appeared to be pulseless at one point at home and CPR was initiated. Upon arrival in the emergency room, he was hemodynamically stable, but had evidence of a recurrent seizure activity. He was treated with Ativan. He is currently seen in the ICU and. He appears sedated and does not answer questions at all. The rest of the history is obtained via the chart. PAST HISTORY: Reportedly notable for hypertension, prior cerebrovascular accident with right hemiparesis. He also has a history of BPH and a prior TURP. FAMILY HISTORY: Unclear. SOCIAL HISTORY: Reportedly negative. CURRENT MEDICATIONS: Aspirin, Ativan, heparin, Keppra and Protonix. ALLERGIES: NONE. REVIEW OF SYSTEMS: A 10-point review of systems is otherwise unobtainable. PHYSICAL EXAMINATION: GENERAL: He is an elderly man who appears extremely lethargic and does not answer questions coherently. VITAL SIGNS: Blood pressure is 150/84 with a pulse of 82 and sinus. Respirations are 16. He is afebrile. HEENT: Normocephalic, atraumatic. NECK: Supple. CHEST: Few scattered rhonchi. HEART: PMI normal position. No pathologic murmur or gallops noted. ABDOMEN: Soft, nontender with normoactive bowel sounds. EXTREMITIES: No clubbing, cyanosis, or edema. SKIN: Warm and dry. PSYCHIATRIC: Unable to assess. NEUROLOGIC: Unable to excess. DIAGNOSTIC DATA: Two sets of cardiac enzymes are negative. Potassium 3.5, BUN and creatinine 13 and 0.7. White count 7.2, hemoglobin and hematocrit 12 and 37.3 with platelet count of 270,000. Arterial blood gas, pH 7.38, pCO2 of 46, pO2 of 89. Cholesterol 136 with an HDL 51, LDL 79, triglycerides of 30. Toxicology screen was negative. Electrocardiogram reveals sinus rhythm, inferior myocardial fraction cannot be excluded and voltage criteria for LVH is present. Chest x-ray reveals normal cardiac silhouette with clear lung [place]. IMPRESSION: 1. 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 2. Possible out of hospital arrest, details somewhat unclear. 3. History of hypertension. 4. Remote cerebrovascular accident. 5. Altered mental status, unclear if this is due to post-ictal state or some degree of prior anoxia. RECOMMENDATIONS: ICU monitoring should continue. Serial cardiac enzymes will be obtained. An echocardiogram will be ordered as well. Neurology evaluation is pending. Further recommendations will be made based upon his clinical course and review of the above findings. Thank you for this consultation. I would be happy to follow as needed. Alejo Choudhary MD MTDD
[2018-06-26] MEDS: cefTRIAXone 1 gm 1 GM/100 ML BAG IVPB SCH (17:13)
[2018-06-27 06:56] LABS: ALBUMIN 3.7 g/dL (3.0-4.8); ALT/SGPT 31 U/L (7-56); AST/SGOT 33 U/L (17-59); BLOOD UREA NITROGEN 11 mg/dL (7-21); CALCIUM 9.1 mg/dL (8.4-10.5); GFR NON-AFRICAN AMERICAN > 60
[2018-06-27 07:15] LABS: BASO # 0.01 K/mm3 (0.0-2.0); BASO % 0.2 % (0.0-3.0); EOS % 0.2 % (1.5-5.0); GRAN # 2.2 (1.4-6.5); LYMPH # 1.4 (1.2-3.4); LYMPH % 32.5 % (22.0-35.0); MEAN CORPUSCULAR HEMOGLOBIN 26.9 pg (25.0-35.0); MEAN CORPUSCULAR HGB CONC 32.7 g/dl (31.0-37.0); MONO # 0.6 (0.1-0.6); MONO % 15.1 % (1.0-6.0); RBC 4.84 10^6/uL (3.5-6.1); RED CELL DISTRIBUTION WIDTH 14.5 % (11.5-14.5); WHITE BLOOD COUNT 4.2 10^3/uL (4.5-11.0)
[2018-06-27] MEDS ORDERED: Potassium Chloride 20 mEq ER Tab PO ONE ×2 (08:08→13:24)
--- NOTE | 2018-06-27 10:22 | CT ---
Date of service: 06/26/2018 PROCEDURE: CT Angiography of the neck with contrast HISTORY: stroke COMPARISON: None. TECHNIQUE: Contiguous axial images of the neck were obtained from the level of the skull-base to the superior mediastinum in the arteriographic phase of enhancement. Coronal and sagittal reformats or also generated. IV contrast dose: 100 cc of Omni 350 Radiation dose: Total exam DLP = 586.52 mGy-cm. This CT exam was performed using one or more of the following dose reduction techniques: Automated exposure control, adjustment of the mA and/or kV according to patient size, and/or use of iterative reconstruction technique. FINDINGS: RIGHT CAROTID ARTERIES: Common Carotid Artery: Normal. Carotid Bifurcation: Normal. Internal Carotid Artery:Normal. External Carotid Artery (proximal branches): Normal. LEFT CAROTID ARTERIES: Common Carotid Artery: Normal. Carotid Bifurcation: Normal. Internal Carotid Artery:Normal. External Carotid Artery (proximal branches): Normal. VERTEBRAL ARTERIES: Right Vertebral Artery: Normal. Left Vertebral Artery: Normal. OTHER FINDINGS: There is minimal aortic and carotid calcification IMPRESSION: Normal CT Angiography of the neck. CT Angiography of the Brain. HISTORY: stroke COMPARISON: None available. TECHNIQUE: CT angiography of the intracranial arteries was performed. Coronal and sagittal maximum intensity projection reformated images were generated. Radiation dose: Total exam DLP = 586.52 mGy-cm. This CT exam was performed using one or more of the following dose reduction techniques: Automated exposure control, adjustment of the mA and/or kV according to patient size, and/or use of iterative reconstruction technique. FINDINGS: INTERNAL CEREBRAL ARTERIES: Unremarkable. The skull base, petrous, cavernous and supraclinoid segments are bilaterally widely patent. ANTERIOR CEREBRAL ARTERIES: Unremarkable. A1 and A2 segments are widely patent. Smaller distal branches unremarkable, as visualized. MIDDLE CEREBRAL ARTERIES: Unremarkable. M1 and M2 segments are widely patent. Perisylvian branches grossly symmetric. POSTERIOR CIRCULATION: Basilar Artery: Unremarkable. Distal Vertebral Arteries: Unremarkable. Posterior Cerebral Arteries: Unremarkable. Posterior Inferior Cerebellar Arteries: Unremarkable. ANEURYSM/ VASCULAR MALFORMATIONS: None. OTHER FINDINGS: The report concurs with the preliminary [facility] report IMPRESSION: Unremarkable CT Angiography of the Brain.
--- NOTE | 2018-06-27 10:47 | MRI ---
Date of service: 06/27/2018 PROCEDURE: MRI BRAIN WITHOUT CONTRAST HISTORY: stroke COMPARISON: 06/25/2018 TECHNIQUE: Multiplanar, multisequence MR images of the brain were obtained without intravenous contrast enhancement. FINDINGS: HEMORRHAGE: None DWI: No evidence of an acute or early subacute infarction. BRAIN PARENCHYMA: Chronic encephalomalacia is seen in the left posterior frontal and parietal lobes. VENTRICLES: Unremarkable. No hydrocephalus. CRANIUM: Unremarkable. ORBITS: Grossly unremarkable. PARANASAL SINUSES/MASTOIDS: Clear VASCULAR SYSTEM: Skull base flow voids intact. OTHER FINDINGS: None. IMPRESSION: Chronic encephalomalacia in the left posterior frontal and parietal lobes. No acute intracranial findings
--- NOTE | 2018-06-27 15:22 | CP.PCM.PN ---
Subjective - Date & Time of Evaluation Date of Evaluation: 06/27/18 Time of Evaluation: 08:45 - Subjective Subjective: Patient seen and examined at bedside in no acute distress. Patient is confused, AAO x 0. ROS limited due to patient's mentation. Objective - Vital Signs/Intake and Output Vital Signs (last 24 hours): Temp Pulse Resp BP Pulse Ox 98.0 F 76 20 143/87 95 06/27/18 06:00 06/27/18 06:00 06/27/18 06:00 06/27/18 06:00 06/27/18 06:00 Intake and Output: 06/27/18 06/27/18 06:59 18:59 Intake Total 220 Output Total 550 Balance -330 - Medications Medications: Current Medications Aspirin (Ecotrin) 325 mg PO DAILY [facility] Atorvastatin Calcium (Lipitor) 20 mg PO DIN [facility] Last Admin: 06/26/18 17:13 Dose: 20 mg Cefpodoxime Proxetil (Vantin) 200 mg PO Q12 [facility] Heparin Sodium (Porcine) (Heparin) 5,000 units SC Q12 [facility]; Protocol Last Admin: 06/26/18 21:49 Dose: 5,000 units Levetiracetam (Keppra 1000mg/100ml Ns) 100 mls @ 460 mls/hr IV Q12 [facility] Last Admin: 06/26/18 21:50 Dose: 460 mls/hr Lorazepam (Ativan) 2 mg IVP Q4H PRN; Protocol PRN Reason: Seizure activity Pantoprazole Sodium (Protonix Ec Tab) 40 mg PO ACB [facility] - Labs Labs: 06/27/18 06:15 06/27/18 06:15 - Constitutional Appears: No Acute Distress - Head Exam Head Exam: NORMAL INSPECTION - ENT Exam ENT Exam: Mucous Membranes Dry - Respiratory Exam Respiratory Exam: NORMAL BREATHING PATTERN. absent: Wheezes - Cardiovascular Exam Cardiovascular Exam: REGULAR RHYTHM, +S1, +S2 - GI/Abdominal Exam GI & Abdominal Exam: Soft, Normal Bowel Sounds - Neurological Exam Neurological Exam: Alert, Altered, Awake. absent: CN II-XII Intact, Oriented x3 Additional comments: myerson's sign present Assessment and Plan - Assessment and Plan (Free Text) Assessment: 77 yr old male with new onset seizure that could be secondary to stroke, now awake but with some language deficits. Plan: 1. MRI Brain: no acute abnormalities 2. ECHO ordered 3. CTA head and neck: no acute abnormalities 4. aspirin 325 mg po daily 5. EEG being done 6. Keppra will be switched to depakote
--- NOTE | 2018-06-27 15:26 | CP.PCM.PN ---
<Edgar Hardy - Last Filed: 06/27/18 20:47> Subjective - Date & Time of Evaluation Date of Evaluation: 06/27/18 Time of Evaluation: 07:30 - Subjective Subjective: Medicine Progress Note for Hospitalist Service, Dr. Karen Hardy, DO PGY-1 Pt seen and examined at bedside this am. Denies any acute complaints. Denies being in any pain currently, resting comfortably at bedside. Unable to recall if family visited him last night. Further ROS unobtainable due to pt's current mental status. Objective - Vital Signs/Intake and Output Vital Signs (last 24 hours): Temp Pulse Resp BP Pulse Ox 98.0 F 76 20 143/87 95 06/27/18 06:00 06/27/18 06:00 06/27/18 06:00 06/27/18 06:00 06/27/18 06:00 Intake and Output: 06/27/18 06/27/18 06:59 18:59 Intake Total 220 Output Total 550 Balance -330 - Medications Medications: Current Medications Aspirin (Ecotrin) 325 mg PO DAILY [facility] Atorvastatin Calcium (Lipitor) 20 mg PO DIN [facility] Last Admin: 06/26/18 17:13 Dose: 20 mg Cefpodoxime Proxetil (Vantin) 200 mg PO Q12 [facility] Heparin Sodium (Porcine) (Heparin) 5,000 units SC Q12 [facility]; Protocol Last Admin: 06/26/18 21:49 Dose: 5,000 units Levetiracetam (Keppra 1000mg/100ml Ns) 100 mls @ 460 mls/hr IV Q12 [facility] Last Admin: 06/26/18 21:50 Dose: 460 mls/hr Lorazepam (Ativan) 2 mg IVP Q4H PRN; Protocol PRN Reason: Seizure activity Pantoprazole Sodium (Protonix Ec Tab) 40 mg PO ACB [facility] - Labs Labs: 06/27/18 06:15 06/27/18 06:15 - Constitutional Appears: Non-toxic, No Acute Distress, Confused - Head Exam Head Exam: ATRAUMATIC, NORMOCEPHALIC - Eye Exam Eye Exam: EOMI, Normal appearance, PERRL - ENT Exam ENT Exam: Mucous Membranes Moist - Respiratory Exam Respiratory Exam: Clear to Ausculation Bilateral, NORMAL BREATHING PATTERN. absent: Rales, Rhonchi, Wheezes - Cardiovascular Exam Cardiovascular Exam: REGULAR RHYTHM, +S1, +S2. absent: Gallop, Rubs, Murmur - GI/Abdominal Exam GI & Abdominal Exam: Soft, Normal Bowel Sounds. absent: Distended, Guarding, Tenderness, Organomegaly - Extremities Exam Extremities Exam: Normal Capillary Refill, Normal Inspection. absent: Pedal Edema, Tenderness - Neurological Exam Neurological Exam: Alert, Awake Additional comments: Oriented x2, slurred speech on exam, dysarthria b/l - Skin Skin Exam: Dry, Intact, Normal Color, Warm Assessment and Plan - Assessment and Plan (Free Text) Assessment: 77M w/ a PMH of CVA w/ residual R sided deficit but retained independence in ADLs, HTN, BPH who prsented to [facility] ED on 06/25/18 brought in by ambulance after family members witnessed patient having seizure like symptoms prior to arrival. Patient downgraded from ICU to tele for management/ treatment of New onset seizure vs worsening of preexisting stroke vs new onset stroke, ACS r/o, and Aspiration PNA. Plan: New Onset Seizure - Etiology uncertain however given PMH of stroke, must r/o new onset stroke or worsening of previous stroke Difficult to assess for new onset focal deficit on admission ; repeat seizure witnessed in the ED 06/25 - CT Head - No acute stroke; prior Left parietal infarct visualized, Chronic microvascular disease MRI Brain 06/27: Chronic encephalomalacia in L posterior frontal and parietal lobes; no acute intracranial findings. CTA head/neck 2: unremarkable C/w ASA 325 PO daily C/w ativan 2mg Q4H PRN C/w Keppra 1 g q12h Seizure precaution Fall precaution Dysphagia/modified consistency diet Speech/swallow eval PT Eval + Tx: d/c rec to [facility] Monitor neuro status; Neuro Consulted, Appreciate recs EEG pending PT eval ordered, recommend [facility] at d/c ACS r/o Patient underwent 1 round CPR in field as per family member; Daughter reports patient possibly aspirated during seizure episode (was drinking water prior to episode) Trops neg x3 EKG in ED demonstrated no ST elevation Lipid panel wnl HbA1C 4.9 Cardiology consulted, appreciate recs C/w home med Lipitor 20 mg PO din C/w ASA 325 mg PO daily Echo pending Hx recurrent UTIs/pos UA U/a on 06/26 pos for protein, small blood, pos nitrate, small LE, WBC 5-10, many bacteria Currently on PO Vantin q12h Pt not having symptoms of UTI at this time Hx HTN Home Norvasc held Avoid aggressive and sudden blood pressure drops due to risk of watershed infarct Prophylaxis GI: Protonix IVP DVT: Heparin 5000 Q12 Pt seen, examined with, and plan discussed with Dr. Varela, attending physician. Edgar Hardy DO PGY-1, Computer Processing Scheduler Pager #[phone] <Karen Varela R - Last Filed: 07/01/18 13:11> Objective - Vital Signs/Intake and Output Vital Signs (last 24 hours): Temp Pulse Resp BP Pulse Ox 97.8 F 85 19 137/79 96 07/01/18 06:00 07/01/18 06:00 07/01/18 06:00 07/01/18 06:00 07/01/18 06:00 Intake and Output: 07/01/18 07/01/18 06:59 18:59 Intake Total 420 Output Total 800 Balance -380 - Medications Medications: Current Medications Aspirin (Ecotrin) 325 mg PO DAILY [facility] Last Admin: 07/01/18 10:06 Dose: 325 mg Atorvastatin Calcium (Lipitor) 20 mg PO DIN [facility] Last Admin: 06/30/18 17:19 Dose: 20 mg Divalproex Sodium (Depakote Dr(*Bid*)) 500 mg PO BID [facility]; Protocol Last Admin: 07/01/18 10:06 Dose: 500 mg Heparin Sodium (Porcine) (Heparin) 5,000 units SC Q12 [facility]; Protocol Last Admin: 07/01/18 10:06 Dose: 5,000 units Lorazepam (Ativan) 2 mg IVP Q4H PRN; Protocol PRN Reason: Seizure activity Pantoprazole Sodium (Protonix Ec Tab) 40 mg PO ACB [facility] Last Admin: 07/01/18 10:07 Dose: 40 mg Tamsulosin HCl (Flomax) 0.4 mg PO DAILY [facility] Last Admin: 07/01/18 10:06 Dose: 0.4 mg - Labs Labs: 07/01/18 05:30 07/01/18 05:30 Attending/Attestation - Attestation I have personally seen and examined this patient.: Yes I have fully participated in the care of the patient.: Yes I have reviewed all pertinent clinical information, including history, physical exam and plan: Yes Notes (Text): Patient seen and examined by me with resident at 10:50AM on 06/27/18. Case including HPI, physical exam, and assessment and plan discussed with resident. Agree with above with following additions/corrections. Patient is a 77 year old male with past medical history significant for CVA with residual right sided weakness, hypertension, and BPH that presented to the emergency room for seizure like symptoms witnessed by family. Patient with speech and language deficits. Unable to obtain history from patient. Patient does say yes and no to some questions. He does deny any pain. Patient afebrile. Physical exam: General: Awake and alert, lying in bed in no acute distress. HEENT: Normocephalic, atraumatic, Extraocular muscles intact, pupils equal and reactive, no scleral icterus. Oropharynx is pink and moist. Neck is supple. Cardiovascular: Normal rhythm. Normal S1 and S2. No murmurs, rubs, or gallops appreciated. Pulmonary: Normal respiratory effort. No rhonchi, rales, or wheezing appreciated. Gastrointestinal: Soft. Nontender. Nondistended. Positive bowel sounds all 4 quadrants. No guarding. Musculoskeletal: Moves all extremities. No edema appreciated. Central nervous system: Awake and alert. Patient with dysarthria. Unable to understand speech. Positive right upper and lower extremity weakness when compared to left. Dermatologic: Skin warm and dry. Assessment and plan:Patient is a 77 year old male with past medical history significant for CVA with residual right sided weakness, hypertension, and BPH that presented to the emergency room for seizure like symptoms witnessed by family. 1. New onset seizure. Neurology following, recommendations appreciated. Head CT per radiologist showed no acute intracranial pathology, old left parietal and cerebellar infarctions, age-related changes. Neck CT angiography per radiologist showed normal CT angiography of the neck. Head CT angiography per radiologist showed unremarkable CT angiography of the brain. Brain MRI per radiologist show ed no acute intracranial findings, chronic encephalomalacia seen in the left posterior frontal and parietal lobes. 2D echo pending. Continue Keppra. Continue ASA and Lipitor. EEG pending. Speech and swallow following, recommendations appreciated. PT following, recommendations appreciated. [facility] recommended. 2. S/P CPR per family. Troponins within normal limits. 2D echo pending. Total cholesterol 136, LDL 79, HDL 51, Triglycerides 30. Cardiology following, recommendations appreciated. Continue ASA and Lipitor. 3. Recurrent UTI. Was given Rocephin, now on Vantin. Complete 7 day course. 4. Hypokalemia. Will replete. Follow up repeat labs in AM 5. Essential hypertension. Home Norvasc held. Patient currently normotensive. Continue to monitor for now. 6. History of CVA with residual right sided weakness. Continue ASA and lipitor. Continue PT and fall precautions. 7. GI/DVT prophylaxis. Protonix/heparin 8. Patient is full code.
[2018-06-27] MEDS: Divalproex 250 mg DR (BID formulation) PO SCH (18:00)
--- NOTE | 2018-06-27 18:43 | PN ---
DATE: 06/27/2018 SUBJECTIVE: The patient is seen sitting in bed on remote telemetry. He is awake and alert and eating breakfast. His speech remains somewhat garbled. He remains in sinus rhythm with no dysrhythmias reported. CURRENT MEDICATIONS: Include Ativan, Depakote, Ecotrin, heparin, Lipitor, Protonix, and Vantin. OBJECTIVE: GENERAL: He is an elderly male, appears comfortable at the present time. VITAL SIGNS: His blood pressure is 110/74 with pulse of 80 and sinus, respirations are 16. He is afebrile. NECK: No JVD. CHEST: Few scattered rhonchi heard. HEART: PMI displaced laterally. Systolic murmur, left sternal border. ABDOMEN: Soft, nontender. Normoactive bowel sounds. EXTREMITIES: Right-sided hemiparesis is present. DIAGNOSTIC DATA: Potassium 3.5. BUN and creatinine 11 and 0.9. White count 4.2, hemoglobin and hematocrit 13 and 39.7 with a platelet count of 256,000. MRI of the head is pending. Echocardiogram is pending as well. IMPRESSION: 1. Recent status epilepticus. 2. Remote cerebrovascular accident. 3. Questionable history of pulselessness at home. 4. Rest of the problems as noted. RECOMMENDATIONS: Neurology followup is advised. Echocardiogram will be reviewed once performed. At this time, conservative cardiac management appears most reasonable. We will follow along as needed. Alejo Choudhary MD
[2018-06-27] MEDS: Aspirin 325 mg EC Tablets PO SCH (20:13)
[2018-06-27] MEDS: levETIRAcetam 1000mg/100ml NS 100 ML IV SCH (20:15)
[2018-06-27] MEDS: cefTRIAXone 1 gm 1 GM/100 ML BAG IVPB SCH (20:15)
[2018-06-28 06:42] LABS: BASO # 0.01 K/mm3 (0.0-2.0); BASO % 0.2 % (0.0-3.0); EOS % 0.5 % (1.5-5.0); GRAN # 2.18 (1.4-6.5); GRAN % 53.6 % (50.0-68.0); HEMOGLOBIN 12.4 g/dL (14.0-18.0); LYMPH # 1.4 (1.2-3.4); LYMPH % 33.4 % (22.0-35.0); MEAN CELL VOLUME 81.7 fl (80.0-105.0); MEAN CORPUSCULAR HGB CONC 33.1 g/dl (31.0-37.0); MONO # 0.5 (0.1-0.6); MONO % 12.3 % (1.0-6.0); RBC 4.59 10^6/uL (3.5-6.1); RED CELL DISTRIBUTION WIDTH 14.3 % (11.5-14.5); WHITE BLOOD COUNT 4.1 10^3/uL (4.5-11.0)
[2018-06-28 07:10] LABS: ALBUMIN 3.5 g/dL (3.0-4.8); ALT/SGPT 28 U/L (7-56); AST/SGOT 28 U/L (17-59); BLOOD UREA NITROGEN 14 mg/dL (7-21); CALCIUM 8.9 mg/dL (8.4-10.5); GFR NON-AFRICAN AMERICAN > 60
[2018-06-28] MEDS: Divalproex 250 mg DR (BID formulation) PO SCH (11:24)
[2018-06-28] MEDS: Aspirin 325 mg EC Tablets PO SCH (11:24)
[2018-06-28] MEDS: Pantoprazole 40 mg EC Tab PO SCH (11:25)
[2018-06-28] MEDS: Cefpodoxime (Vantin) 200 mg Tab PO SCH ×2 (11:25→21:04)
--- NOTE | 2018-06-28 12:53 | CP.PCM.PN ---
<Edgar Hardy - Last Filed: 06/28/18 13:01> Subjective - Date & Time of Evaluation Date of Evaluation: 06/28/18 Time of Evaluation: 07:15 - Subjective Subjective: Medicine Progress Note for Hospitalist Service, Dr. Karen Hardy, DO PGY-1, Day Care Home Provider Pt seen and examined at bedside. Denies any acute complaints, resting comfortably at bedside. Unable to answer open-ended questions. No acute events reported overnight by staff. Denies chest pain, sob, n/v/d/c, abd pain, urinary complaints, or other symptoms. Objective - Vital Signs/Intake and Output Vital Signs (last 24 hours): Temp Pulse Resp BP Pulse Ox 98 F 87 20 128/83 95 06/28/18 08:15 06/28/18 08:15 06/28/18 08:15 06/28/18 08:15 06/28/18 08:15 Intake and Output: 06/28/18 06/28/18 06:59 18:59 Output Total 120 Balance -120 - Medications Medications: Current Medications Aspirin (Ecotrin) 325 mg PO DAILY [facility] Last Admin: 06/28/18 11:24 Dose: 325 mg Atorvastatin Calcium (Lipitor) 20 mg PO DIN [facility] Last Admin: 06/27/18 18:00 Dose: 20 mg Cefpodoxime Proxetil (Vantin) 200 mg PO Q12 [facility] Last Admin: 06/28/18 11:25 Dose: 200 mg Divalproex Sodium (Depakote Dr (*Bid*)) 250 mg PO BID [facility]; Protocol Last Admin: 06/28/18 11:24 Dose: 250 mg Heparin Sodium (Porcine) (Heparin) 5,000 units SC Q12 [facility]; Protocol Last Admin: 06/28/18 11:24 Dose: 5,000 units Lorazepam (Ativan) 2 mg IVP Q4H PRN; Protocol PRN Reason: Seizure activity Pantoprazole Sodium (Protonix Ec Tab) 40 mg PO ACB [facility] Last Admin: 06/28/18 11:25 Dose: 40 mg - Labs Labs: 06/28/18 06:00 06/28/18 06:00 - Constitutional Appears: Non-toxic, No Acute Distress - Head Exam Head Exam: ATRAUMATIC, NORMOCEPHALIC - Eye Exam Eye Exam: EOMI, Normal appearance, PERRL - ENT Exam ENT Exam: Mucous Membranes Moist - Respiratory Exam Respiratory Exam: Clear to Ausculation Bilateral, NORMAL BREATHING PATTERN. absent: Rales, Rhonchi, Wheezes - Cardiovascular Exam Cardiovascular Exam: REGULAR RHYTHM, +S1, +S2. absent: Gallop, Rubs, Murmur - GI/Abdominal Exam GI & Abdominal Exam: Soft, Normal Bowel Sounds. absent: Distended, Guarding, Tenderness, Organomegaly, Rebound - Extremities Exam Extremities Exam: Normal Capillary Refill, Normal Inspection. absent: Pedal Edema, Tenderness Additional comments: Weakness in lifting lower exts b/l against resistance - Neurological Exam Neurological Exam: Alert, Awake Additional comments: Oriented x1 - Skin Skin Exam: Dry, Intact, Normal Color, Warm Assessment and Plan - Assessment and Plan (Free Text) Assessment: 77M w/ a PMH of CVA w/ residual R sided deficit but retained independence in ADLs, HTN, BPH who prsented to [facility] ED on 06/25/18 brought in by ambulance after family members witnessed patient having seizure like symptoms prior to arrival. Patient downgraded from ICU to tele for management/ treatment of seizure likely 2/2 to stroke, ACS r/o. Plan: New Onset Seizure - Etiology uncertain however given PMH of stroke, must r/o new onset stroke or worsening of previous stroke Difficult to assess for new onset focal deficit on admission ; repeat seizure w itnessed in the ED 06/25 - CT Head - No acute stroke; prior Left parietal infarct visualized, Chron ic microvascular disease MRI Brain 1/2: Chronic encephalomalacia in L posterior frontal and parietal lobes; no acute intracranial findings. CTA head/neck 1/2: unremarkable C/w ASA 325 PO daily C/w ativan 2mg Q4H PRN C/w Keppra 1 g q12h Seizure precaution Fall precaution Dysphagia/modified consistency diet Speech/swallow eval PT Eval + Tx: d/c rec to [facility] Monitor neuro status; Neuro Consulted, Appreciate recs EEG pending PT eval ordered, recommend [facility] at d/c ACS r/o Patient underwent 1 round CPR in field as per family member; Daughter reports patient possibly aspirated during seizure episode (was drinking water prior to episode) Trops neg x3 EKG in ED demonstrated no ST elevation Lipid panel wnl HbA1C 4.9 Cardiology consulted, appreciate recs C/w home med Lipitor 20 mg PO din C/w ASA 325 mg PO daily Echo results pending Hx recurrent UTIs/pos UA U/a on 06/26 pos for protein, small blood, pos nitrate, small LE, WBC 5-10, many bacteria Currently on PO Vantin q12h Pt not having symptoms of UTI at this time Hx HTN Home Norvasc held Avoid aggressive and sudden blood pressure drops due to risk of watershed infar ct Prophylaxis GI: Protonix IVP DVT: Heparin 5000 Q12 Pt seen, examined with, and plan discussed with Dr. Varela, attending physician. Edgar Hardy DO PGY-1, Day Care Home Provider Pager #[phone] <Karen Varela R - Last Filed: 07/01/18 13:22> Objective - Vital Signs/Intake and Output Vital Signs (last 24 hours): Temp Pulse Resp BP Pulse Ox 97.8 F 85 19 137/79 96 07/01/18 06:00 07/01/18 06:00 07/01/18 06:00 07/01/18 06:00 07/01/18 06:00 Intake and Output: 07/01/18 07/01/18 06:59 18:59 Intake Total 420 Output Total 800 Balance -380 - Medications Medications: Current Medications Aspirin (Ecotrin) 325 mg PO DAILY [facility] Last Admin: 07/01/18 10:06 Dose: 325 mg Atorvastatin Calcium (Lipitor) 20 mg PO DIN [facility] Last Admin: 06/30/18 17:19 Dose: 20 mg Divalproex Sodium (Depakote Dr(*Bid*)) 500 mg PO BID [facility]; Protocol Last Admin: 07/01/18 10:06 Dose: 500 mg Heparin Sodium (Porcine) (Heparin) 5,000 units SC Q12 [facility]; Protocol Last Admin: 07/01/18 10:06 Dose: 5,000 units Lorazepam (Ativan) 2 mg IVP Q4H PRN; Protocol PRN Reason: Seizure activity Pantoprazole Sodium (Protonix Ec Tab) 40 mg PO ACB [facility] Last Admin: 07/01/18 10:07 Dose: 40 mg Tamsulosin HCl (Flomax) 0.4 mg PO DAILY [facility] Last Admin: 07/01/18 10:06 Dose: 0.4 mg - Labs Labs: 07/01/18 05:30 07/01/18 05:30 Attending/Attestation - Attestation I have personally seen and examined this patient.: Yes I have fully participated in the care of the patient.: Yes I have reviewed all pertinent clinical information, including history, physical exam and plan: Yes Notes (Text): Patient seen and examined by me with resident at 10:30AM on 06/28/18. Case including HPI, physical exam, and assessment and plan discussed with resident. Agree with above with following additions/corrections. Patient is a 77 year old male with past medical history significant for CVA with residual right sided weakness, hypertension, and BPH that presented [facility] for seizure like symptoms witnessed by family. Patient with speech and language deficits. Unable to obtain history from patient. Patient says yes and no to some questions. Patient denies chest pain or abdominal pain. Patient afebrile. Physical exam: General: Awake and alert, lying in bed in no acute distress. HEENT: Normocephalic, atraumatic, Extraocular muscles intact, pupils equal and reactive, no scleral icterus. Oropharynx is pink and moist. Neck is supple. Cardiovascular: Normal rhythm. Normal S1 and S2. No murmurs, rubs, or gallops appreciated. Pulmonary: Normal respiratory effort. No rhonchi, rales, or wheezing appreciated. Gastrointestinal: Soft. Nontender. Nondistended. Positive bowel sounds all 4 quadrants. No guarding. Musculoskeletal: Moves all extremities. No edema appreciated. Central nervous system: Awake and alert. Patient with dysarthria. Unable to understand speech. Positive right upper and lower extremity weakness when compared to left. Dermatologic: Skin warm and dry. Assessment and plan:Patient is a 77 year old male with past medical history significant for CVA with residual right sided weakness, hypertension, and BPH that presented to the emergency room for seizure like symptoms witnessed by family. 1. New onset seizure. Neurology following, recommendations appreciated. Per neurologist Dr. Damian, seizure likely secondary to old CVA and dementia. Keppra changed to Depakote by neurologist. Continue ASA and Lipitor. EEG results pending. Head CT per radiologist showed no acute intracranial pathology, old left parietal and cerebellar infarctions, age-related changes. Neck CT angiography per radiologist showed normal CT angiography of the neck. Head CT angiography per radiologist showed unremarkable CT angiography of the brain. Brain MRI per radiologist showed no acute intracranial findings, chronic encephalomalacia seen in the left posterior frontal and parietal lobes. 2D echo per labour market economist showed dilated RA, normal LV size and systolic function, mild to moderate TR. Speech and swallow following, recommendations appreciated. PT following, recommendations appreciated. VIRID[facility]NA recommended. 2. S/P CPR per family. Continue ASA and Lipitor. Troponins within normal limits. 2D echo as above. Total cholesterol 136, LDL 79, HDL 51, Triglycerides 30. HgbA1C 4.9. Cardiology following, recommendations appreciated.. 3. Recurrent UTI. Continue Vantin for total of 7 days. 4. Hypokalemia. Resolved. Continue to monitor. 5. Essential hypertension. Home Norvasc held. Patient currently normotensive. Continue to monitor for now. 6. History of CVA with residual right sided weakness. Continue ASA and lipitor. Continue PT and fall precautions. 7. GI/DVT prophylaxis. Protonix/heparin 8. Patient is full code.
--- NOTE | 2018-06-28 13:13 | PCM.EEG ---
Electroencephalogram Report - Electroencephalogram Report Procedure Date: 06/27/18 Condition of Recording: Awake, Drowsy Medication: Keppra 500 mg bid Interpretation: This EEG was acquired using the international 10/20 electrode system with 21 leads. James detection software was employed and reviewed. All electrodes were referenced to A1 A2 P1 P2. There was a normal 10 hz posterior dominant rhythm that is reactive, symmetric and attenuates with eye opening. THere was a normal amount of beta in the frontal leads bilaterally. No epileptiform discharges are noted. NO sleep was captured. Impression: NOrmal awake and drowsy EEG
--- NOTE | 2018-06-28 13:55 | CARD ---
APPROVED REPORT Date of service: 06/28/2018 EXAM: Two-dimensional and M-mode echocardiogram with Doppler and color Doppler. INDICATION CARDIAC ARREST 2D DIMENSIONS Left Atrium (2D)3.5 (1.6-4.0cm)IVSd0.9 (0.7-1.1cm) LVDd3.7 (3.9-5.9cm)PWd1.1 (0.7-1.1cm) LVDs2.8 (2.5-4.0cm)FS (%) 25.4 % LVEF (%)50.8 (>50%) M-Mode DIMENSIONS Aortic Root3.80 (2.2-3.7cm)Aortic Cusp Exc.1.80 (1.5-2.0cm) Aortic Valve AoV Peak Exqlljgz479.0cm/Chari Peak GR.4mmHg Mitral Valve MV E Wyfegkae94.0cm/sMV A Fcyeeagz39.7cm/sE/A ratio0.6 TDI Lateral E' Peak V7.41cm/sMedial E' Peak V5.56cm/sE/Lateral E'5.3 E/Medial E'7.0 Pulmonary Valve PV Peak Psdqhakv65.2cm/sPV Peak Grad.1mmHg Tricuspid Valve TR Peak [id number]/sRAP [id number] Peak Gr.23mmHg [id number] LEFT VENTRICLE The left ventricle is normal size. There is normal left ventricular wall thickness. The left ventricular function is normal. The left ventricular ejection fraction is within the normal range. There is normal LV segmental wall motion. RIGHT VENTRICLE The right ventricle is normal size. The right ventricular systolic function is normal. ATRIA The left atrium size is normal. The right atrium is mildly dilated. The interatrial septum is intact with no evidence for an atrial septal defect. AORTIC VALVE The aortic valve is normal in structure. No aortic regurgitation is present. There is no aortic valvular stenosis. MITRAL VALVE The mitral valve is normal in structure. There is no mitral valve regurgitation noted. TRICUSPID VALVE The tricuspid valve is normal in structure. There is mild to moderate tricuspid regurgitation. PULMONIC VALVE The pulmonary valve is normal in structure. GREAT VESSELS The aortic root is normal in size. The IVC is normal in size and collapses >50% with inspiration. PERICARDIAL EFFUSION There is no pleural effusion. There is no pericardial effusion. <Conclusion> Dilated RA. Normal LV size and systolic function. Mild to moderate TR.
--- NOTE | 2018-06-28 14:36 | CP.PCM.PN ---
Subjective - Date & Time of Evaluation Date of Evaluation: 06/28/18 Time of Evaluation: 14:34 - Subjective Subjective: Neurology Progress Note: Patient seen and assessed at bedside. No acute events noted. Further ROS limited due to patients clinical condition. Objective - Vital Signs/Intake and Output Vital Signs (last 24 hours): Temp Pulse Resp BP Pulse Ox 98 F 87 20 128/83 95 06/28/18 08:15 06/28/18 08:15 06/28/18 08:15 06/28/18 08:15 06/28/18 08:15 Intake and Output: 06/28/18 06/28/18 06:59 18:59 Output Total 120 Balance -120 - Medications Medications: Current Medications Aspirin (Ecotrin) 325 mg PO DAILY [facility] Last Admin: 06/28/18 11:24 Dose: 325 mg Atorvastatin Calcium (Lipitor) 20 mg PO DIN [facility] Last Admin: 06/27/18 18:00 Dose: 20 mg Cefpodoxime Proxetil (Vantin) 200 mg PO Q12 [facility] Last Admin: 06/28/18 11:25 Dose: 200 mg Divalproex Sodium (Depakote Dr(*Bid*)) 500 mg PO BID [facility]; Protocol Heparin Sodium (Porcine) (Heparin) 5,000 units SC Q12 [facility]; Protocol Last Admin: 06/28/18 11:24 Dose: 5,000 units Lorazepam (Ativan) 2 mg IVP Q4H PRN; Protocol PRN Reason: Seizure activity Pantoprazole Sodium (Protonix Ec Tab) 40 mg PO ACB [facility] Last Admin: 06/28/18 11:25 Dose: 40 mg - Labs Labs: 06/28/18 06:00 06/28/18 06:00 - Constitutional Appears: Non-toxic, No Acute Distress, Confused - Head Exam Head Exam: ATRAUMATIC, NORMOCEPHALIC - Eye Exam Eye Exam: EOMI, Normal appearance, PERRL - ENT Exam ENT Exam: Mucous Membranes Moist - Neck Exam Neck Exam: Full ROM - Respiratory Exam Respiratory Exam: Clear to Ausculation Bilateral, NORMAL BREATHING PATTERN. absent: Wheezes - Cardiovascular Exam Cardiovascular Exam: REGULAR RHYTHM - GI/Abdominal Exam GI & Abdominal Exam: Soft, Normal Bowel Sounds. absent: Tenderness - Extremities Exam Extremities Exam: absent: Calf Tenderness - Neurological Exam Neurological Exam: Alert, Awake. absent: Oriented x3 - Skin Skin Exam: Dry, Intact, Normal Color, Warm Assessment and Plan - Assessment and Plan (Free Text) Assessment: 77 year old male with a past medical history significant for two prior CVA's who presented with altered mental status and dysarthria. Plan: -MRI Brain showed chronic encephalomalacia in the left posterior frontal and parietal lobes and no acute intracranial findings -CT Head showed old left parietal and cerebellar infarctions, expected age related changes and no acute intracranial findings -CTA Head/Neck were unremarkable except minimal aortic and carotid calcification -Sleep/Awake EEG showed no abnormal activity -2D Echocardiogram pending -Increased Depakote DR dosage to 500mg PO BID -Continue high dose ASA and Lipitor -Hemoglobin A1c within normal limits Patient seen and case discussed with attending, Dr. Damian. Jose Roberto Valenzuela, PGY2
--- NOTE | 2018-06-28 16:16 | CP.PCM.PCO ---
Physician Communication Note - Physician Communication Note Physician Communication Note: per neurlogy,symptoms of recent stroke,no new stroke, depakoate increased,
[2018-06-28] MEDS: Divalproex 500 mg DR(BID formulation) PO SCH (17:54)
[2018-06-29 06:33] LABS: BASO # 0.01 K/mm3 (0.0-2.0); BASO % 0.2 % (0.0-3.0); EOS % 0.5 % (1.5-5.0); GRAN # 1.95 (1.4-6.5); GRAN % 46.2 % (50.0-68.0); HEMOGLOBIN 13.1 g/dL (14.0-18.0); LYMPH # 1.6 (1.2-3.4); LYMPH % 38.2 % (22.0-35.0); MEAN CELL VOLUME 81.5 fl (80.0-105.0); MEAN CORPUSCULAR HGB CONC 33.1 g/dl (31.0-37.0); MEAN PLATELET VOLUME 8.8 fl (7.0-11.0); MONO # 0.6 (0.1-0.6); MONO % 14.9 % (1.0-6.0); RBC 4.86 10^6/uL (3.5-6.1); RED CELL DISTRIBUTION WIDTH 14.2 % (11.5-14.5); WHITE BLOOD COUNT 4.2 10^3/uL (4.5-11.0)
[2018-06-29 07:15] LABS: ALBUMIN 3.6 g/dL (3.0-4.8); ALT/SGPT 27 U/L (7-56); AST/SGOT 37 U/L (17-59); BLOOD UREA NITROGEN 17 mg/dL (7-21); CALCIUM 9.1 mg/dL (8.4-10.5); GFR NON-AFRICAN AMERICAN > 60
[2018-06-29] MEDS: Aspirin 325 mg EC Tablets PO SCH (09:12)
[2018-06-29] MEDS: Divalproex 500 mg DR(BID formulation) PO SCH ×2 (09:12→17:02)
[2018-06-29] MEDS: Cefpodoxime (Vantin) 200 mg Tab PO SCH ×2 (09:12→21:27)
[2018-06-29] MEDS: Pantoprazole 40 mg EC Tab PO SCH (09:12)
--- NOTE | 2018-06-29 15:15 | CP.PCM.PCO ---
Physician Communication Note - Physician Communication Note Physician Communication Note: Per neurology no new stroke,no seizure activity,on depakote,for acute rehab [facility] Data Current Medications: Current Medications Aspirin (Ecotrin) 325 mg PO DAILY [facility] Last Admin: 06/29/18 09:12 Dose: 325 mg Atorvastatin Calcium (Lipitor) 20 mg PO DIN [facility] Last Admin: 06/28/18 17:55 Dose: 20 mg Cefpodoxime Proxetil (Vantin) 200 mg PO Q12 [facility] Last Admin: 06/29/18 09:12 Dose: 200 mg Divalproex Sodium (Depakote Dr(*Bid*)) 500 mg PO BID [facility]; Protocol Last Admin: 06/29/18 09:12 Dose: 500 mg Heparin Sodium (Porcine) (Heparin) 5,000 units SC Q12 [facility]; Protocol Last Admin: 06/29/18 09:13 Dose: 5,000 units Lorazepam (Ativan) 2 mg IVP Q4H PRN; Protocol PRN Reason: Seizure activity Pantoprazole Sodium (Protonix Ec Tab) 40 mg PO ACB [facility] Last Admin: 06/29/18 09:12 Dose: 40 mg Tamsulosin HCl (Flomax) 0.4 mg PO DAILY [facility] Last Admin: 06/29/18 09:12 Dose: 0.4 mg 06/29/18 05:44 06/29/18 05:44 Procedures COMM/COGNIT SKILL TREATMENT USING AUGMENT COMM EQUIPMENT (11/09/17) EXERCISE TREATMENT OF MUSCULOSK WHOLE USING ASSIST EQUIPMENT (11/09/17) GAIT TRAINING/AMBULAT TREATMENT USING ASSIST EQUIPMENT (11/09/17) HOME MANAGEMENT TREATMENT USING ASSIST EQUIPMENT (11/09/17) RESECTION OF PROSTATE, ENDO (01/08/18) Assessment/Plan Patient Problems: Current Active Problems Problem Status Onset New onset seizure Acute Plan/Action: Medically cleared for discharge to acute rehab, when bed available.
--- NOTE | 2018-06-29 15:33 | CP.PCM.PN ---
Subjective - Date & Time of Evaluation Date of Evaluation: 06/29/18 Time of Evaluation: 15:29 - Subjective Subjective: Neurology Progress Note: Patient seen and assessed at bedside. No acute events noted. Further ROS limited due to patients clinical condition. Objective - Vital Signs/Intake and Output Vital Signs (last 24 hours): Temp Pulse Resp BP Pulse Ox 97.5 F L 93 H 18 132/75 94 L 06/29/18 08:20 06/29/18 08:20 06/29/18 08:20 06/29/18 08:20 06/29/18 08:20 Intake and Output: 06/29/18 06/29/18 06:59 18:59 Intake Total 120 Output Total 480 Balance -360 - Medications Medications: Current Medications Aspirin (Ecotrin) 325 mg PO DAILY [facility] Last Admin: 06/29/18 09:12 Dose: 325 mg Atorvastatin Calcium (Lipitor) 20 mg PO DIN [facility] Last Admin: 06/28/18 17:55 Dose: 20 mg Cefpodoxime Proxetil (Vantin) 200 mg PO Q12 [facility] Last Admin: 06/29/18 09:12 Dose: 200 mg Divalproex Sodium (Depakote Dr(*Bid*)) 500 mg PO BID [facility]; Protocol Last Admin: 06/29/18 09:12 Dose: 500 mg Heparin Sodium (Porcine) (Heparin) 5,000 units SC Q12 [facility]; Protocol Last Admin: 06/29/18 09:13 Dose: 5,000 units Lorazepam (Ativan) 2 mg IVP Q4H PRN; Protocol PRN Reason: Seizure activity Pantoprazole Sodium (Protonix Ec Tab) 40 mg PO ACB [facility] Last Admin: 06/29/18 09:12 Dose: 40 mg Tamsulosin HCl (Flomax) 0.4 mg PO DAILY [facility] Last Admin: 06/29/18 09:12 Dose: 0.4 mg - Labs Labs: 06/29/18 05:44 06/29/18 05:44 - Additional Findings Additional findings: - Constitutional Appears: Non-toxic, No Acute Distress, Confused - Head Exam Head Exam: ATRAUMATIC, NORMOCEPHALIC - Eye Exam Eye Exam: EOMI, Normal appearance, PERRL - ENT Exam ENT Exam: Mucous Membranes Moist - Neck Exam Neck Exam: Full ROM - Respiratory Exam Respiratory Exam: Clear to Ausculation Bilateral, NORMAL BREATHING PATTERN. absent: Wheezes - Cardiovascular Exam Cardiovascular Exam: REGULAR RHYTHM - GI/Abdominal Exam GI & Abdominal Exam: Soft, Normal Bowel Sounds. absent: Tenderness - Extremities Exam Extremities Exam: absent: Calf Tenderness - Neurological Exam Neurological Exam: Alert, Awake. absent: Oriented x3 Additional Comments: Patient unable to cooperate for full neurological exam - Skin Skin Exam: Dry, Intact, Normal Color, Warm Assessment and Plan - Assessment and Plan (Free Text) Assessment: 77 year old male with a past medical history significant for two prior CVA's who presented with altered mental status and dysarthria. Patients current clinical presentation likely secondary to multiple etiologies including dementia and probable recent seizure, which he is at increased risk for given his history of CVA's. Plan: -MRI Brain showed chronic encephalomalacia in the left posterior frontal and parietal lobes and no acute intracranial findings -CT Head showed old left parietal and cerebellar infarctions, expected age related changes and no acute intracranial findings -CTA Head/Neck were unremarkable except minimal aortic and carotid calcification -Sleep/Awake EEG showed no abnormal activity -2D Echocardiogram showed normal LV function and no atrial septal defect -Hemoglobin A1c within normal limits -Continue Depakote DR dosage to 500mg PO BID -Continue high dose ASA and Lipitor -Continue PT, OT and Speech Therapy Patient seen and case discussed with attending, Dr. Damian. Jose Roberto Valenzuela, PGY2
--- NOTE | 2018-06-29 16:27 | CP.PCM.PN ---
<Chino Ruiz R - Last Filed: 06/29/18 16:24> Subjective - Date & Time of Evaluation Date of Evaluation: 06/29/18 Time of Evaluation: 10:30 - Subjective Subjective: PGY-2 medicine progress note for Dr Karen Varela Yesterday evening the patient was retaining urine - a bladder scan performed showed approx 2200ml of fluid. A straight cath was performed with release of urine and a post-straight cath bladder scan showed approx 300ml of fluid. This morning the patient was at his baseline since arriving to our hospital - he is with expressive and receptive aphasia. He is AAOx1 (only to name only). He denied being in pain. He is eating his meals and able to use the commode with assistance - he is also participating in physical therapy. Objective - Vital Signs/Intake and Output Vital Signs (last 24 hours): Temp Pulse Resp BP Pulse Ox 97.5 F L 93 H 18 132/75 94 L 06/29/18 08:20 06/29/18 10:00 06/29/18 08:20 06/29/18 08:20 06/29/18 08:20 Intake and Output: 06/29/18 06/29/18 06:59 18:59 Intake Total 120 Output Total 480 Balance -360 - Medications Medications: Current Medications Aspirin (Ecotrin) 325 mg PO DAILY [facility] Last Admin: 06/29/18 09:12 Dose: 325 mg Atorvastatin Calcium (Lipitor) 20 mg PO DIN [facility] Last Admin: 06/28/18 17:55 Dose: 20 mg Cefpodoxime Proxetil (Vantin) 200 mg PO Q12 [facility] Last Admin: 06/29/18 09:12 Dose: 200 mg Divalproex Sodium (Depakote Dr(*Bid*)) 500 mg PO BID [facility]; Protocol Last Admin: 06/29/18 09:12 Dose: 500 mg Heparin Sodium (Porcine) (Heparin) 5,000 units SC Q12 [facility]; Protocol Last Admin: 06/29/18 09:13 Dose: 5,000 units Lorazepam (Ativan) 2 mg IVP Q4H PRN; Protocol PRN Reason: Seizure activity Pantoprazole Sodium (Protonix Ec Tab) 40 mg PO ACB [facility] Last Admin: 06/29/18 09:12 Dose: 40 mg Tamsulosin HCl (Flomax) 0.4 mg PO DAILY [facility] Last Admin: 06/29/18 09:12 Dose: 0.4 mg - Labs Labs: 06/29/18 05:44 06/29/18 05:44 - Additional Findings Additional findings: - Constitutional Appears: Non-toxic, No Acute Distress - Head Exam Head Exam: ATRAUMATIC, NORMOCEPHALIC - Eye Exam Eye Exam: EOMI, Normal appearance, PERRL - ENT Exam ENT Exam: Mucous Membranes Moist - Respiratory Exam Respiratory Exam: Clear to Ausculation Bilateral, NORMAL BREATHING PATTERN. absent: Rales, Rhonchi, Wheezes - Cardiovascular Exam Cardiovascular Exam: REGULAR RHYTHM, +S1, +S2. absent: Gallop, Rubs, Murmur - GI/Abdominal Exam GI & Abdominal Exam: Soft, Normal Bowel Sounds. absent: Distended, Guarding, Tenderness, Organomegaly, Rebound - Extremities Exam Extremities Exam: Normal Capillary Refill, Normal Inspection. absent: Pedal Edema, Tenderness Additional comments: right arm and right leg motor strength 2/5 compared to left arm and leg which are 5/5 - Neurological Exam Neurological Exam: Alert, Awake Additional comments: Oriented x1 (to name only) - Skin Skin Exam: Dry, Intact, Normal Color, Warm Assessment and Plan - Assessment and Plan (Free Text) Plan: 77M w/ a PMH of CVA w/ residual R sided deficit but retained independence in ADLs, HTN, BPH who presented to [facility] on [facility]18 brought in by ambulance after family members witnessed patient having seizure like symptoms prior to arrival. Patient downgraded from ICU to tele for management/ treatment of seizure likely 2/2 to old stroke, ACS r/o. 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 CTA head/neck 12: unremarkable Sleep/Awake EEG showed no abnormal activity Echo dilated RA; normal LV size and systolic function (50%); mild to moderate TR C/w ASA 325 PO daily C/w ativan 2mg Q4H PRN C/w depakote 500mg po bid Seizure precaution Fall precaution Speech/swallow eval - puree textures/thin liquids Neuro Consulted Dr Damian, Appreciate recs PT eval ordered, recommend acute rehab and if not possible then [facility] Continue PT, OT and Speech Therapy ACS r/o Patient underwent 1 round CPR in field as per family member; Daughter reports patient possibly aspirated during seizure episode (was drinking water prior to episode) Trops neg x3 EKG in ED demonstrated no ST elevation Lipid panel wnl HbA1C 4.[address] Cohn, appreciate recs * recommendation is for conservative management C/w home med Lipitor 20 mg PO din C/w ASA 325 mg PO daily Echo dilated RA; normal LV size and systolic function (50%); mild to moderate TR Hx recurrent UTIs/pos UA U/a on 06/26 pos for protein, small blood, pos nitrate, small LE, WBC 5-10, many bacteria Currently on PO Vantin 200mg po q12h - we will continue until 07/02/2018 for a total of 7 days of abx (received rocephin on day 1 and 2) Pt not having symptoms of UTI at this time Hx HTN Home Norvasc held Avoid aggressive and sudden blood pressure drops due to risk of watershed infarct Hx of BPH Start home med flomax 0.4mg po qd Bladder scans prn Urinary straight cath if bladder scan shows urinary retention Straight cath performed on 06/28/2018 released approx 2200ml of urine Prophylaxis GI: Protonix IVP DVT: Heparin 5000 Q12 Dispo: Case management is working on sending [facility] (waiting for authorization) - patient's son agrees to pay extra fee's to make this happen. Pt seen, examined with, and plan discussed with Dr. Varela, attending physician. <Karen Varela R - Last Filed: 07/01/18 13:31> Objective - Vital Signs/Intake and Output Vital Signs (last 24 hours): Temp Pulse Resp BP Pulse Ox 97.8 F 85 19 137/79 96 07/01/18 06:00 07/01/18 06:00 07/01/18 06:00 07/01/18 06:00 07/01/18 06:00 Intake and Output: 07/01/18 07/01/18 06:59 18:59 Intake Total 420 Output Total 800 Balance -380 - Medications Medications: Current Medications Aspirin (Ecotrin) 325 mg PO DAILY [facility] Last Admin: 07/01/18 10:06 Dose: 325 mg Atorvastatin Calcium (Lipitor) 20 mg PO DIN [facility] Last Admin: 06/30/18 17:19 Dose: 20 mg Cefpodoxime Proxetil (Vantin) 200 mg PO Q12 [facility]; Protocol Divalproex Sodium (Depakote Dr(*Bid*)) 500 mg PO BID [facility]; Protocol Last Admin: 07/01/18 10:06 Dose: 500 mg Heparin Sodium (Porcine) (Heparin) 5,000 units SC Q12 [facility]; Protocol Last Admin: 07/01/18 10:06 Dose: 5,000 units Lorazepam (Ativan) 2 mg IVP Q4H PRN; Protocol PRN Reason: Seizure activity Pantoprazole Sodium (Protonix Ec Tab) 40 mg PO ACB [facility] Last Admin: 07/01/18 10:07 Dose: 40 mg Tamsulosin HCl (Flomax) 0.4 mg PO DAILY [facility] Last Admin: 07/01/18 10:06 Dose: 0.4 mg - Labs Labs: 07/01/18 05:30 07/01/18 05:30 Attending/Attestation - Attestation I have personally seen and examined this patient.: Yes I have fully participated in the care of the patient.: Yes I have reviewed all pertinent clinical information, including history, physical exam and plan: Yes Notes (Text): Patient seen and examined by me with resident at 10:25AM on 06/29/18. Case including HPI, physical exam, and assessment and plan discussed with resident. Agree with above with following additions/corrections. Patient is a 77 year old male with past medical history significant for CVA with residual right sided weakness, hypertension, and BPH that presented to the emergency room for seizure like symptoms witnessed by family. Unable to obtain history from patient secondary to speech and language deficits. Patient does say yes and no to some questions. Patient denies chest pain. No abdominal pain. Denies pain anywhere. Patient afebrile. Physical exam: General: Awake and alert, lying in bed in no acute distress. HEENT: Normocephalic, atraumatic, Extraocular muscles intact, pupils equal and reactive, no scleral icterus. Oropharynx is pink and moist. Neck is supple. Cardiovascular: Normal rhythm. Normal S1 and S2. No murmurs, rubs, or gallops appreciated. Pulmonary: Normal respiratory effort. No rhonchi, rales, or wheezing appreciated. Gastrointestinal: Soft. Nontender. Nondistended. Positive bowel sounds all 4 quadrants. No guarding. Musculoskeletal: Moves all extremities. No edema appreciated. Central nervous system: Awake and alert. Patient with dysarthria. Unable to understand speech. Positive right upper and lower extremity weakness when compared to left. Dermatologic: Skin warm and dry. Assessment and plan:Patient is a 77 year old male with past medical history significant for CVA with residual right sided weakness, hypertension, and BPH that presented to the emergency room for seizure like symptoms witnessed by family. 1. New onset seizure. Neurology following, recommendations appreciated. Per neurologist Dr. Damian, seizure likely secondary to old CVA and dementia. Continue Depakote. Continue ASA and Lipitor. EEG per neurologist showed normal awake and drowsy EEG. Head CT per radiologist showed no acute intracranial pathology, old left parietal and cerebellar infarctions, age-related changes. Neck CT angiography per radiologist showed normal CT angiography of the neck. Head CT angiography per radiologist showed unremarkable CT angiography of the brain. Brain MRI per radiologist showed no acute intracranial findings, chronic encephalomalacia seen in the left posterior frontal and parietal lobes. 2D echo per ent nurse showed dilated RA, normal LV size and systolic function, mild to moderate TR. Speech and swallow following, recommendations appreciated. PT following, recommendations appreciated. [facility] recommended. Pending V[facility]NA placement. 2. Urinary retention. S/P straight cath. Restarted on Flomax. No longer retaining urine. Continue to monitor. 3. S/P CPR per family. Continue ASA and Lipitor. Troponins within normal limits. 2D echo as above. Total cholesterol 136, LDL 79, HDL 51, Triglycerides 30. HgbA1C 4.9. Cardiology following, recommendations appreciated.. 4. Recurrent UTI. Continue Vantin for total of 7 days. 5. Hypokalemia. Resolved. Continue to monitor. 6. Essential hypertension. Home Norvasc held. Patient currently normotensive. Continue to monitor for now. 7. History of CVA with residual right sided weakness. Continue ASA and lipitor. Continue PT and fall precautions. 8. GI/DVT prophylaxis. Protonix/heparin 9. Patient is full code.
[2018-06-30] MEDS: Pantoprazole 40 mg EC Tab PO SCH (06:42)
[2018-06-30 07:08] LABS: ALBUMIN 3.5 g/dL (3.0-4.8); ALT/SGPT 26 U/L (7-56); AST/SGOT 32 U/L (17-59); BASO # 0.01 K/mm3 (0.0-2.0); BASO % 0.2 % (0.0-3.0); BLOOD UREA NITROGEN 19 mg/dL (7-21); CALCIUM 8.9 mg/dL (8.4-10.5); EOS # 0.1 (0.0-0.7); EOS % 1.2 % (1.5-5.0); GFR NON-AFRICAN AMERICAN > 60; GRAN # 2.3 (1.4-6.5); GRAN % 55.4 % (50.0-68.0); HEMOGLOBIN 12.9 g/dL (14.0-18.0); LYMPH # 1.3 (1.2-3.4); LYMPH % 31.7 % (22.0-35.0); MEAN CELL VOLUME 81.7 fl (80.0-105.0); MEAN CORPUSCULAR HEMOGLOBIN 27.4 pg (25.0-35.0); MEAN CORPUSCULAR HGB CONC 33.6 g/dl (31.0-37.0); MEAN PLATELET VOLUME 8.8 fl (7.0-11.0); MONO # 0.5 (0.1-0.6); MONO % 11.5 % (1.0-6.0); RBC 4.7 10^6/uL (3.5-6.1); WHITE BLOOD COUNT 4.2 10^3/uL (4.5-11.0)
[2018-06-30] MEDS: Aspirin 325 mg EC Tablets PO SCH (09:31)
[2018-06-30] MEDS: Divalproex 500 mg DR(BID formulation) PO SCH ×2 (09:31→17:18)
[2018-06-30] MEDS: Cefpodoxime (Vantin) 200 mg Tab PO SCH ×2 (09:31→21:00)
--- NOTE | 2018-06-30 10:54 | CP.PCM.PN ---
<Yasmany Duarte - Last Filed: 06/30/18 10:51> Subjective - Date & Time of Evaluation Date of Evaluation: 06/30/18 Time of Evaluation: 09:30 - Subjective Subjective: Patient seen and examined at bedside. Patient pleasant with no overnight events. Patient resting comfortably in bed. Demonstrates expressive aphasia. ROS unobtainable due to inability to effectively communicate. Objective - Vital Signs/Intake and Output Vital Signs (last 24 hours): Temp Pulse Resp BP Pulse Ox 97.4 F L 90 20 139/79 95 06/30/18 06:00 06/30/18 06:00 06/30/18 06:00 06/30/18 06:00 06/30/18 06:00 Intake and Output: 06/30/18 06/30/18 06:59 18:59 Intake Total 120 Output Total 200 Balance -80 - Medications Medications: Current Medications Aspirin (Ecotrin) 325 mg PO DAILY [facility] Last Admin: 06/30/18 09:31 Dose: 325 mg Atorvastatin Calcium (Lipitor) 20 mg PO DIN [facility] Last Admin: 06/29/18 17:02 Dose: 20 mg Cefpodoxime Proxetil (Vantin) 200 mg PO Q12 [facility] Stop: 07/02/18 23:59 Last Admin: 06/30/18 09:31 Dose: 200 mg Divalproex Sodium (Depakote Dr(*Bid*)) 500 mg PO BID [facility]; Protocol Last Admin: 06/30/18 09:31 Dose: 500 mg Heparin Sodium (Porcine) (Heparin) 5,000 units SC Q12 [facility]; Protocol Last Admin: 06/30/18 09:31 Dose: 5,000 units Lorazepam (Ativan) 2 mg IVP Q4H PRN; Protocol PRN Reason: Seizure activity Pantoprazole Sodium (Protonix Ec Tab) 40 mg PO ACB [facility] Last Admin: 06/30/18 06:42 Dose: 40 mg Tamsulosin HCl (Flomax) 0.4 mg PO DAILY [facility] Last Admin: 06/30/18 09:31 Dose: 0.4 mg - Labs Labs: 06/30/18 06:00 06/30/18 06:00 - Constitutional Appears: Non-toxic, No Acute Distress - Head Exam Head Exam: ATRAUMATIC, NORMAL INSPECTION, NORMOCEPHALIC - ENT Exam ENT Exam: Mucous Membranes Moist - Respiratory Exam Respiratory Exam: Clear to Ausculation Bilateral, NORMAL BREATHING PATTERN - Cardiovascular Exam Cardiovascular Exam: RRR, +S1, +S2 - GI/Abdominal Exam GI & Abdominal Exam: Soft, Normal Bowel Sounds. absent: Tenderness - Extremities Exam Additional comments: Right sided motor strength 2/5 - Neurological Exam Neurological Exam: Alert, Awake (Oriented x 1) - Psychiatric Exam Psychiatric exam: Normal Affect, Normal Mood - Skin Skin Exam: Intact, Normal Color, Warm Assessment and Plan - Assessment and Plan (Free Text) Plan: 77 year old female past medical history of CVA with residual right sided deficit, HTN, BPH, and dysarthria presents with probably seizure and possible component of dementia. Patient ruled out of acute coronary syndrome. Patient will require acute rehab/[facility], pending authorization for [place] rehab. 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 CTA head/neck 06/27: unremarkable Sleep/Awake EEG negative Continue ASA 325, Ativan 2 q4h prn, and Depakote 500 BID Speech/swallow eval - puree textures/thin liquids Neuro Consulted, Dr. Damian Continue PT, OT and Speech Therapy ACS R/O Troponins neg x3 EKG no ST abnormalities Lipid panel normal HbA1C 4.9 Cardiology consulted, Dr. Cohn Continue ASA and Lipitor Echo dilated RA; normal LV size and systolic function (50%); mild to moderate TR Hx recurrent UTIs Continue Vantin Hx of HTN Blood pressure meds on hold to reduce risk of watershed infarct Hx of BPH Continue flomax Bladder scans prn for retention Prophylaxis Protonix Heparin Gerald, PGY-3 <Karen aVrela R - Last Filed: 07/01/18 13:35> Objective - Vital Signs/Intake and Output Vital Signs (last 24 hours): Temp Pulse Resp BP Pulse Ox 97.8 F 85 19 137/79 96 07/01/18 06:00 07/01/18 06:00 07/01/18 06:00 07/01/18 06:00 07/01/18 06:00 Intake and Output: 01/06/19 01/06/19 06:59 18:59 Intake Total 420 Output Total 800 Balance -380 - Medications Medications: Current Medications Aspirin (Ecotrin) 325 mg PO DAILY [facility] Last Admin: 07/01/18 10:06 Dose: 325 mg Atorvastatin Calcium (Lipitor) 20 mg PO DIN [facility] Last Admin: 06/30/18 17:19 Dose: 20 mg Cefpodoxime Proxetil (Vantin) 200 mg PO Q12 [facility]; Protocol Divalproex Sodium (Depakote Dr(*Bid*)) 500 mg PO BID [facility]; Protocol Last Admin: 07/01/18 10:06 Dose: 500 mg Heparin Sodium (Porcine) (Heparin) 5,000 units SC Q12 [facility]; Protocol Last Admin: 07/01/18 10:06 Dose: 5,000 units Lorazepam (Ativan) 2 mg IVP Q4H PRN; Protocol PRN Reason: Seizure activity Pantoprazole Sodium (Protonix Ec Tab) 40 mg PO ACB [facility] Last Admin: 07/01/18 10:07 Dose: 40 mg Tamsulosin HCl (Flomax) 0.4 mg PO DAILY [facility] Last Admin: 07/01/18 10:06 Dose: 0.4 mg - Labs Labs: 07/01/18 05:30 07/01/18 05:30 Attending/Attestation - Attestation I have personally seen and examined this patient.: Yes I have fully participated in the care of the patient.: Yes I have reviewed all pertinent clinical information, including history, physical exam and plan: Yes Notes (Text): Patient seen and examined by me with resident at 8:50AM on 06/30/18. Case including HPI, physical exam, and assessment and plan discussed with resident. Agree with above with following additions/corrections. Patient is a 77 year old male with past medical history significant for CVA with residual right sided weakness, hypertension, and BPH that presented to the emergency room for seizure like symptoms witnessed by family. Unable to obtain history from patient secondary to speech and language deficits. Unable to understand speech. Patient does say yes and no to some questions. Denies any pain. Denies chest pain. No abdominal pain. Patient afebrile. Physical exam: General: Awake and alert, lying in bed in no acute distress. HEENT: Normocephalic, atraumatic, Extraocular muscles intact, pupils equal and reactive, no scleral icterus. Oropharynx is pink and moist. Neck is supple. Cardiovascular: Normal rhythm. Normal S1 and S2. No murmurs, rubs, or gallops appreciated. Pulmonary: Normal respiratory effort. No rhonchi, rales, or wheezing appreciated. Gastrointestinal: Soft. Nontender. Nondistended. Positive bowel sounds all 4 quadrants. No guarding. Musculoskeletal: Moves all extremities. No edema appreciated. Central nervous system: Awake and alert. Patient with dysarthria. Unable to understand speech. Positive right upper and lower extremity weakness when compared to left. Dermatologic: Skin warm and dry. Assessment and plan:Patient is a 77 year old male with past medical history significant for CVA with residual right sided weakness, hypertension, and BPH that presented to the emergency room for seizure like symptoms witnessed by family. 1. New onset seizure. Neurology following, recommendations appreciated. Pending [facility] placement. Per neurologist Dr. Damian, seizure likely secondary to old CVA and dementia. Continue Depakote. Continue ASA and Lipitor. EEG per neurologist showed normal awake and drowsy EEG. Head CT per radiologist showed no acute intracranial pathology, old left parietal and cerebellar infarctions, age- related changes. Neck CT angiography per radiologist showed normal CT angiography of the neck. Head CT angiography per radiologist showed unremarkable CT angiography of the brain. Brain MRI per radiologist showed no acute intracranial findings, chronic encephalomalacia seen in the left posterior frontal and parietal lobes. 2D echo per manager terminal showed dilated RA, normal LV size and systolic function, mild to moderate TR. Speech and swallow following, recommendations appreciated. PT following, recommendations appreciated. [facility] recommended. 2. Urinary retention. S/P straight cath. Continue Flomax. No longer retaining urine. Continue to monitor. 3. S/P CPR per family. Continue ASA and Lipitor. Troponins within normal limits. 2D echo as above. Total cholesterol 136, LDL 79, HDL 51, Triglycerides 30. HgbA1C 4.9. Cardiology following, recommendations appreciated. 4. Recurrent UTI. Continue Vantin for total of 7 days. 5. Hypokalemia. Resolved. Continue to monitor. 6. Essential hypertension. Home Norvasc held. Patient currently normotensive. Continue to monitor for now. 7. History of CVA with residual right sided weakness. Continue ASA and lipitor. Continue PT and fall precautions. 8. GI/DVT prophylaxis. Protonix/heparin 9. Patient is full code.
[2018-07-01 07:00] LABS: BASO # 0.01 K/mm3 (0.0-2.0); BASO % 0.2 % (0.0-3.0); GRAN # 2.42 (1.4-6.5); GRAN % 58.8 % (50.0-68.0); LYMPH # 1.1 (1.2-3.4); LYMPH % 26.2 % (22.0-35.0); MEAN CELL VOLUME 82.4 fl (80.0-105.0); MEAN CORPUSCULAR HEMOGLOBIN 26.5 pg (25.0-35.0); MEAN CORPUSCULAR HGB CONC 32.2 g/dl (31.0-37.0); MEAN PLATELET VOLUME 8.8 fl (7.0-11.0); MONO # 0.6 (0.1-0.6); MONO % 13.8 % (1.0-6.0); RBC 4.9 10^6/uL (3.5-6.1); RED CELL DISTRIBUTION WIDTH 14.3 % (11.5-14.5); WHITE BLOOD COUNT 4.1 10^3/uL (4.5-11.0)
[2018-07-01 07:40] LABS: ALBUMIN 3.7 g/dL (3.0-4.8); ALT/SGPT 34 U/L (7-56); AST/SGOT 43 U/L (17-59); BLOOD UREA NITROGEN 19 mg/dL (7-21); CALCIUM 9.4 mg/dL (8.4-10.5); GFR NON-AFRICAN AMERICAN > 60
[2018-07-01] MEDS: Aspirin 325 mg EC Tablets PO SCH (10:06)
[2018-07-01] MEDS: Cefpodoxime (Vantin) 200 mg Tab PO SCH ×2 (10:06→21:53)
[2018-07-01] MEDS: Divalproex 500 mg DR(BID formulation) PO SCH ×2 (10:06→17:28)
[2018-07-01] MEDS: Pantoprazole 40 mg EC Tab PO SCH (10:07)
--- NOTE | 2018-07-01 10:57 | CP.PCM.PN ---
<SaraChino R - Last Filed: 07/01/18 10:54> Subjective - Date & Time of Evaluation Date of Evaluation: 07/01/18 Time of Evaluation: 09:00 - Subjective Subjective: PGY-2 medicine progress note for Dr Chiu. No acute events overnight. Patient was at his baseline for this admission - he was pleasant, AAOx1 (to name only), denied pain. There was no urinary retention since the previous episode. Per nursing, there were no issues overnight. Objective - Vital Signs/Intake and Output Vital Signs (last 24 hours): Temp Pulse Resp BP Pulse Ox 97.8 F 85 19 137/79 96 07/01/18 06:00 07/01/18 06:00 07/01/18 06:00 07/01/18 06:00 07/01/18 06:00 Intake and Output: 07/01/18 07/01/18 06:59 18:59 Intake Total 420 Output Total 800 Balance -380 - Medications Medications: Current Medications Aspirin (Ecotrin) 325 mg PO DAILY [facility] Last Admin: 07/01/18 10:06 Dose: 325 mg Atorvastatin Calcium (Lipitor) 20 mg PO DIN [facility] Last Admin: 06/30/18 17:19 Dose: 20 mg Divalproex Sodium (Depakote Dr(*Bid*)) 500 mg PO BID [facility]; Protocol Last Admin: 07/01/18 10:06 Dose: 500 mg Heparin Sodium (Porcine) (Heparin) 5,000 units SC Q12 [facility]; Protocol Last Admin: 07/01/18 10:06 Dose: 5,000 units Lorazepam (Ativan) 2 mg IVP Q4H PRN; Protocol PRN Reason: Seizure activity Pantoprazole Sodium (Protonix Ec Tab) 40 mg PO ACB [facility] Last Admin: 07/01/18 10:07 Dose: 40 mg Tamsulosin HCl (Flomax) 0.4 mg PO DAILY [facility] Last Admin: 07/01/18 10:06 Dose: 0.4 mg - Labs Labs: 07/01/18 05:30 07/01/18 05:30 - Additional Findings Additional findings: - Constitutional Appears: Non-toxic, No Acute Distress - Head Exam Head Exam: ATRAUMATIC, NORMOCEPHALIC - Eye Exam Eye Exam: EOMI, Normal appearance, PERRL - ENT Exam ENT Exam: Mucous Membranes Moist - Respiratory Exam Respiratory Exam: Clear to Ausculation Bilateral, NORMAL BREATHING PATTERN. absent: Rales, Rhonchi, Wheezes - Cardiovascular Exam Cardiovascular Exam: REGULAR RHYTHM, +S1, +S2. absent: Gallop, Rubs, Murmur - GI/Abdominal Exam GI & Abdominal Exam: Soft, Normal Bowel Sounds. absent: Distended, Guarding, Tenderness, Organomegaly, Rebound - Extremities Exam Extremities Exam: Normal Capillary Refill, Normal Inspection. absent: Pedal Edema, Tenderness Additional comments: right arm and right leg motor strength 2/5 compared to left arm and leg which are 5/5 - Neurological Exam Neurological Exam: Alert, Awake Additional comments: Oriented x1 (to name only), expressive and receptive aphasia - Skin Skin Exam: Dry, Intact, Normal Color, Warm Assessment and Plan - Assessment and Plan (Free Text) Plan: 77M w/ a PMH of CVA w/ residual R sided deficit but retained independence in ADLs, HTN, BPH who presented to [facility] on 06/25/18 brought in by ambulance after family members witnessed patient having seizure like symptoms prior to arrival. Patient downgraded from ICU to tele for management/ treatment of seizure likely 2/2 to old stroke, ACS r/o. 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 CTA head/neck 12: unremarkable Sleep/Awake EEG showed no abnormal activity Echo dilated RA; normal LV size and systolic function (50%); mild to moderate TR C/w ASA 325 PO daily C/w ativan 2mg Q4H PRN C/w depakote 500mg po bid Seizure precaution Fall precaution Speech/swallow eval - puree textures/thin liquids Neuro Consulted Dr Damian, Appreciate recs PT eval ordered, recommend acute rehab and if not possible then [facility] Continue PT, OT and Speech Therapy ACS r/o Patient underwent 1 round CPR in field as per family member; Daughter reports patient possibly aspirated during seizure episode (was drinking water prior to episode) Trops neg x3 EKG in ED demonstrated no ST elevation Lipid panel wnl HbA1C 4.[address] Cohn, appreciate recs * recommendation is for conservative management C/w home med Lipitor 20 mg PO din C/w ASA 325 mg PO daily Echo dilated RA; normal LV size and systolic function (50%); mild to moderate TR Hx recurrent UTIs/pos UA U/a on 06/26 pos for protein, small blood, pos nitrate, small LE, WBC 5-10, many bacteria Currently on PO Vantin 200mg po q12h - we will continue until 07/02/2018 for a total of 7 days of abx (received rocephin on day 1 and 2) Pt not having symptoms of UTI at this time Hx HTN Home Norvasc held Avoid aggressive and sudden blood pressure drops due to risk of watershed infarct Hx of BPH Start home med flomax 0.4mg po qd Bladder scans prn Urinary straight cath if bladder scan shows urinary retention Straight cath performed on 06/28/2018 released approx 2200ml of urine Prophylaxis GI: Protonix IVP DVT: Heparin 5000 Q12 Dispo: Transfer to [place] acute rehab pending authorization. Pt seen, examined with, and plan discussed with Dr. Chiu, attending physician. <Emilio Chiu - Last Filed: 07/01/18 13:16> Objective - Vital Signs/Intake and Output Vital Signs (last 24 hours): Temp Pulse Resp BP Pulse Ox 97.8 F 85 19 137/79 96 07/01/18 06:00 07/01/18 06:00 07/01/18 06:00 07/01/18 06:00 07/01/18 06:00 Intake and Output: 07/01/18 07/01/18 06:59 18:59 Intake Total 420 Output Total 800 Balance -380 - Medications Medications: Current Medications Aspirin (Ecotrin) 325 mg PO DAILY [facility] Last Admin: 07/01/18 10:06 Dose: 325 mg Atorvastatin Calcium (Lipitor) 20 mg PO DIN [facility] Last Admin: 06/30/18 17:19 Dose: 20 mg Divalproex Sodium (Saul Davila(*Bid*)) 500 mg PO BID [facility]; Protocol Last Admin: 07/01/18 10:06 Dose: 500 mg Heparin Sodium (Porcine) (Heparin) 5,000 units SC Q12 [facility]; Protocol Last Admin: 07/01/18 10:06 Dose: 5,000 units Lorazepam (Ativan) 2 mg IVP Q4H PRN; Protocol PRN Reason: Seizure activity Pantoprazole Sodium (Protonix Ec Tab) 40 mg PO ACB [facility] Last Admin: 07/01/18 10:07 Dose: 40 mg Tamsulosin HCl (Flomax) 0.4 mg PO DAILY [facility] Last Admin: 07/01/18 10:06 Dose: 0.4 mg - Labs Labs: 07/01/18 05:30 07/01/18 05:30 Attending/Attestation - Attestation I have personally seen and examined this patient.: Yes I have fully participated in the care of the patient.: Yes I have reviewed all pertinent clinical information, including history, physical exam and plan: Yes Notes (Text): 07/01/18 13:07 Attending note; Patient seen and examined with resident. Patient is alert and awake. Complaining of right leg weakness. Denies any chest pain, shortness of breath. Denies any abdominal pain, nausea, vomiting. Denies any seizure like activity. Patient is a 77 male with PMH of CVA with residual R sided deficit but retained independence in ADLs, HTN, BPH who presented to [facility] on 06/25/18 brought in by ambulance after family members witnessed patient having seizure like activity prior to arrival. The patient was initially admitted to ICU. 1. Seizure like activity; neurology evaluation appreciated. Patient is started on Depakote. CT Head showed No acute stroke; prior Left parietal infarct visualized, Chronic microvascular disease MRI Brain showed Chronic encephalomalacia in L posterior frontal and parietal lobes; no acute intracranial findings. CTA head/neck is nremarkable Sleep/Awake EEG showed no abnormal activity Echo dilated RA; normal LV size and systolic function (50%); mild to moderate TR Continue aspirin, Lipitor, Depakote, IV Ativan when necessary . Seizure precaution Fall precaution Speech/swallow evaluation appreciated .continue puree textures/thin liquids 2. Right-sided weakness; physical therapy evaluation appreciated. Subacute rehabilitation recommended. We will discuss with behavioral health case manager for rehabilitation placement tomorrow. Pending transfer to [facility]. 3. History of BPH; continue Flomax. Upon discharge the patient will follow-up with PMD Dr. Cash.
[2018-07-02 07:11] LABS: BASO # 0.02 K/mm3 (0.0-2.0); BASO % 0.6 % (0.0-3.0); EOS # 0.1 (0.0-0.7); EOS % 1.5 % (1.5-5.0); GRAN # 1.28 (1.4-6.5); GRAN % 37.2 % (50.0-68.0); HEMOGLOBIN 13.2 g/dL (14.0-18.0); LYMPH # 1.7 (1.2-3.4); LYMPH % 48.7 % (22.0-35.0); MEAN CELL VOLUME 83.8 fl (80.0-105.0); MEAN CORPUSCULAR HEMOGLOBIN 27.1 pg (25.0-35.0); MEAN CORPUSCULAR HGB CONC 32.4 g/dl (31.0-37.0); MEAN PLATELET VOLUME 9.1 fl (7.0-11.0); MONO # 0.4 (0.1-0.6); RBC 4.87 10^6/uL (3.5-6.1); RED CELL DISTRIBUTION WIDTH 14.3 % (11.5-14.5); WHITE BLOOD COUNT 3.4 10^3/uL (4.5-11.0)
[2018-07-02 08:01] LABS: ALBUMIN 3.5 g/dL (3.0-4.8); ALT/SGPT 38 U/L (7-56); AST/SGOT 52 U/L (17-59); BLOOD UREA NITROGEN 21 mg/dL (7-21); CALCIUM 9.2 mg/dL (8.4-10.5); GFR NON-AFRICAN AMERICAN > 60
[2018-07-02] MEDS: Divalproex 500 mg DR(BID formulation) PO SCH ×2 (11:10→17:29)
[2018-07-02] MEDS: Aspirin 325 mg EC Tablets PO SCH (11:11)
[2018-07-02] MEDS: Pantoprazole 40 mg EC Tab PO SCH (11:11)
[2018-07-02] MEDS: Cefpodoxime (Vantin) 200 mg Tab PO SCH ×2 (11:12→21:16)
--- NOTE | 2018-07-02 16:48 | CP.PCM.PN ---
<Edgar Hardy - Last Filed: 07/02/18 16:44> Subjective - Date & Time of Evaluation Date of Evaluation: 07/02/18 Time of Evaluation: 07:30 - Subjective Subjective: Medicine Progress Note for Hospitalist Service, Dr. Marizol Hardy, DO PGY-1 Pt seen and examined at bedside this am. Denies any acute complaints, resting comfortably at bedside. No acute events reported overnight. Denies chest pain, sob, n/v/d/c, fever, chills, abd pain, urinary complaints, or other symptoms. Objective - Vital Signs/Intake and Output Vital Signs (last 24 hours): Temp Pulse Resp BP Pulse Ox 97.7 F 75 20 128/80 98 07/02/18 08:11 07/02/18 08:11 07/02/18 08:11 07/02/18 08:11 07/02/18 08:11 Intake and Output: 07/02/18 07/02/18 06:59 18:59 Intake Total 360 Output Total 500 Balance -140 - Medications Medications: Current Medications Aspirin (Ecotrin) 325 mg PO DAILY [facility] Last Admin: 07/02/18 11:11 Dose: 325 mg Atorvastatin Calcium (Lipitor) 20 mg PO DIN [facility] Last Admin: 07/01/18 17:29 Dose: 20 mg Cefpodoxime Proxetil (Vantin) 200 mg PO Q12 [facility]; Protocol Last Admin: 07/02/18 11:12 Dose: 200 mg Divalproex Sodium (Depakote Dr(*Bid*)) 500 mg PO BID [facility]; Protocol Last Admin: 07/02/18 11:10 Dose: 500 mg Heparin Sodium (Porcine) (Heparin) 5,000 units SC Q12 [facility]; Protocol Last Admin: 07/02/18 11:11 Dose: 5,000 units Lorazepam (Ativan) 2 mg IVP Q4H PRN; Protocol PRN Reason: Seizure activity Pantoprazole Sodium (Protonix Ec Tab) 40 mg PO ACB [facility] Last Admin: 07/02/18 11:11 Dose: 40 mg Tamsulosin HCl (Flomax) 0.4 mg PO DAILY [facility] Last Admin: 07/02/18 11:11 Dose: 0.4 mg - Labs Labs: 07/02/18 06:00 07/02/18 06:00 - Constitutional Appears: Non-toxic, No Acute Distress - Head Exam Head Exam: ATRAUMATIC, NORMOCEPHALIC - Eye Exam Eye Exam: EOMI, Normal appearance, PERRL - ENT Exam ENT Exam: Mucous Membranes Moist - Respiratory Exam Respiratory Exam: Clear to Ausculation Bilateral, NORMAL BREATHING PATTERN. absent: Rales, Rhonchi, Wheezes - Cardiovascular Exam Cardiovascular Exam: REGULAR RHYTHM, +S1, +S2. absent: Gallop, Rubs, Murmur - GI/Abdominal Exam GI & Abdominal Exam: Soft, Normal Bowel Sounds. absent: Distended, Tenderness, Organomegaly - Extremities Exam Extremities Exam: Normal Capillary Refill, Normal Inspection. absent: Calf Tenderness, Pedal Edema Additional comments: R-sided weakness 2/2 prior CVA - Neurological Exam Neurological Exam: Alert, Awake Additional comments: oriented x1 - Skin Skin Exam: Dry, Intact, Normal Color Assessment and Plan - Assessment and Plan (Free Text) Assessment: 77M w/ a PMH of CVA w/ residual R sided deficit but retained independence in ADLs, HTN, BPH who presented to [facility] ED on 06/25/18 brought in by ambulance after family members witnessed patient having seizure like symptoms prior to arrival. Patient downgraded from ICU to tele for management/ treatment of seizure likely 2/2 to old stroke, ACS r/o. Plan: Seizure 2/2 to Old CVA Difficult to assess for new onset focal deficit on admission ; repeat seizure witnessed in the ED 06/25 - CT Head - No acute stroke; prior Left parietal infarct visualized, Chronic microvascular disease MRI Brain 2: Chronic encephalomalacia in L posterior frontal and parietal lobes; no acute intracranial findings. CTA head/neck 12: unremarkable Sleep/Awake EEG showed no abnormal activity Echo dilated RA; normal LV size and systolic function (50%); mild to moderate TR C/w ASA 325 PO daily C/w ativan 2mg Q4H PRN C/w depakote 500mg po bid Seizure precaution Fall precaution Speech/swallow eval - puree textures/thin liquids Neuro Consulted Dr Damian, Appreciate recs PT eval ordered, recommend acute rehab and if not possible then [facility] Continue PT, OT and Speech Therapy ACS r/o Patient underwent 1 round CPR in field as per family member; Daughter reports patient possibly aspirated during seizure episode (was drinking water prior to episode) Trops neg x3 EKG in ED demonstrated no ST elevation Lipid panel wnl HbA1C 4.[address] Cohn, appreciate recs recommendation is for conservative management C/w home med Lipitor 20 mg PO din C/w ASA 325 mg PO daily Echo dilated RA; normal LV size and systolic function (50%); mild to moderate TR Hx recurrent UTIs/pos UA U/a on 06/26 pos for protein, small blood, pos nitrate, small LE, WBC 5-10, many bacteria Currently on PO Vantin 200mg po q12h - we will continue until 07/02/2018 for a total of 7 days of abx (received rocephin on day 1 and 2) Pt not having symptoms of UTI at this time Hx HTN Home Norvasc held Avoid aggressive and sudden blood pressure drops due to risk of watershed infarct Hx of BPH Start home med flomax 0.4mg po qd Bladder scans prn Urinary straight cath if bladder scan shows urinary retention Straight cath performed on 06/28/2018 released approx 2200ml of urine Prophylaxis GI: Protonix IVP DVT: Heparin 5000 Q12 Dispo: Transfer to [place] acute rehab pending authorization. Pt seen, examined with, and plan discussed with Dr. Fontana, attending physician. Edgar Hardy DO PGY-1, Section Repairer Pager #[phone] <Hima Fontana - Last Filed: 07/03/18 17:33> Objective - Vital Signs/Intake and Output Vital Signs (last 24 hours): Temp Pulse Resp BP Pulse Ox 97.8 F 83 20 105/71 95 07/03/18 16:58 07/03/18 16:58 07/03/18 16:58 07/03/18 16:58 07/03/18 16:58 - Medications Medications: Current Medications Aspirin (Aspirin Chewable) 81 mg PO DAILY [facility] Last Admin: 07/03/18 11:13 Dose: 81 mg Atorvastatin Calcium (Lipitor) 20 mg PO DIN [facility] Last Admin: 07/02/18 17:29 Dose: 20 mg Divalproex Sodium (Depakote Dr(*Bid*)) 500 mg PO BID [facility]; Protocol Last Admin: 07/03/18 11:12 Dose: 500 mg Heparin Sodium (Porcine) (Heparin) 5,000 units SC Q12 [facility]; Protocol Last Admin: 07/03/18 11:12 Dose: 5,000 units Pantoprazole Sodium (Protonix Ec Tab) 40 mg PO ACB [facility] Last Admin: 07/03/18 07:30 Dose: 40 mg Tamsulosin HCl (Flomax) 0.4 mg PO DAILY [facility] Last Admin: 07/03/18 11:12 Dose: 0.4 mg - Labs Labs: 07/03/18 09:10 07/03/18 09:10 Attending/Attestation - Attestation I have personally seen and examined this patient.: Yes I have fully participated in the care of the patient.: Yes I have reviewed all pertinent clinical information, including history, physical exam and plan: Yes Notes (Text): 77 y/o M with PMH of CVA with residual right sided deficit, HTN, BPH was admitted after a witnessed seizure episode. CT head was negative for acute findings. Showed old left parietal infarct. MRI showed chronic encephalomalacia in left posterior frontal and parietal lobes. EEG - No abnormal activity c/w depakoate as per neuro recs. ativan PRN, seizure precaution. Pt has been working with PT and recommends acute rehab, currently awaiting authorization. Recurrent UTIs HTN BPH
[2018-07-03] MEDS: Pantoprazole 40 mg EC Tab PO SCH (07:30)
[2018-07-03 09:29] LABS: BASO # 0.02 K/mm3 (0.0-2.0); BASO % 0.6 % (0.0-3.0); EOS % 0.9 % (1.5-5.0); GRAN # 1.68 (1.4-6.5); GRAN % 49.4 % (50.0-68.0); HEMOGLOBIN 13.5 g/dL (14.0-18.0); LYMPH # 1.2 (1.2-3.4); LYMPH % 34.1 % (22.0-35.0); MEAN CELL VOLUME 83.2 fl (80.0-105.0); MEAN CORPUSCULAR HEMOGLOBIN 27.7 pg (25.0-35.0); MEAN CORPUSCULAR HGB CONC 33.3 g/dl (31.0-37.0); MEAN PLATELET VOLUME 8.9 fl (7.0-11.0); MONO # 0.5 (0.1-0.6); RBC 4.87 10^6/uL (3.5-6.1); RED CELL DISTRIBUTION WIDTH 14.2 % (11.5-14.5); WHITE BLOOD COUNT 3.4 10^3/uL (4.5-11.0)
[2018-07-03 09:42] LABS: ALBUMIN 3.7 g/dL (3.0-4.8); ALT/SGPT 32 U/L (7-56); AST/SGOT 37 U/L (17-59); BLOOD UREA NITROGEN 22 mg/dL (7-21); CALCIUM 9.3 mg/dL (8.4-10.5); GFR NON-AFRICAN AMERICAN > 60
[2018-07-03] MEDS: Divalproex 500 mg DR(BID formulation) PO SCH ×2 (11:12→18:24)
--- NOTE | 2018-07-03 14:23 | CP.PCM.PCO ---
Physician Communication Note - Physician Communication Note Physician Communication Note: patient medically cleared,awaiting [place] acute rehab
--- NOTE | 2018-07-03 14:35 | CP.PCM.PN ---
<Edgar Hardy - Last Filed: 07/03/18 15:06> Subjective - Date & Time of Evaluation Date of Evaluation: 07/03/18 Time of Evaluation: 07:40 - Subjective Subjective: Medicine Progress Note for Hospitalist Service, Dr. Marizol Hardy, DO PGY-1 Pt seen and examined at bedside this am. Denies any acute complaints, resting comfortably at bedside. No acute events reported overnight by staff. Denies headache, fever, chills, chest pain, sob, n/v/d/c, abd pain, urinary complaints, or other symptoms. Objective - Vital Signs/Intake and Output Vital Signs (last 24 hours): Temp Pulse Resp BP Pulse Ox 97.7 F 79 20 120/73 94 L 07/03/18 08:12 07/03/18 08:12 07/03/18 08:12 07/03/18 08:12 07/03/18 08:12 - Medications Medications: Current Medications Aspirin (Aspirin Chewable) 81 mg PO DAILY [facility] Last Admin: 07/03/18 11:13 Dose: 81 mg Atorvastatin Calcium (Lipitor) 20 mg PO DIN [facility] Last Admin: 07/02/18 17:29 Dose: 20 mg Divalproex Sodium (Depakote Dr(*Bid*)) 500 mg PO BID [facility]; Protocol Last Admin: 07/03/18 11:12 Dose: 500 mg Heparin Sodium (Porcine) (Heparin) 5,000 units SC Q12 [facility]; Protocol Last Admin: 07/03/18 11:12 Dose: 5,000 units Pantoprazole Sodium (Protonix Ec Tab) 40 mg PO ACB [facility] Last Admin: 07/03/18 07:30 Dose: 40 mg Tamsulosin HCl (Flomax) 0.4 mg PO DAILY [facility] Last Admin: 07/03/18 11:12 Dose: 0.4 mg - Labs Labs: 07/03/18 09:10 07/03/18 09:10 - Constitutional Appears: Non-toxic, No Acute Distress - Head Exam Head Exam: ATRAUMATIC, NORMOCEPHALIC - Eye Exam Eye Exam: EOMI, Normal appearance, PERRL - ENT Exam ENT Exam: Mucous Membranes Moist - Respiratory Exam Respiratory Exam: Clear to Ausculation Bilateral, NORMAL BREATHING PATTERN. a bsent: Rales, Rhonchi, Wheezes - Cardiovascular Exam Cardiovascular Exam: REGULAR RHYTHM, +S1, +S2. absent: Gallop, Rubs, Murmur - GI/Abdominal Exam GI & Abdominal Exam: Soft, Normal Bowel Sounds. absent: Distended, Guarding, Tenderness, Organomegaly - Extremities Exam Extremities Exam: Full ROM, Normal Capillary Refill, Normal Inspection. absent: Tenderness - Neurological Exam Neurological Exam: Alert, Awake Additional comments: Oriented x1 - Skin Skin Exam: Dry, Intact, Normal Color, Warm Assessment and Plan - Assessment and Plan (Free Text) Assessment: 77M w/ a PMH of CVA w/ residual R sided deficit but retained independence in ADLs, HTN, BPH who presented to [facility] ED on 06/25/18 brought in by ambulance after family members witnessed patient having seizure like symptoms prior to arrival. Patient downgraded from ICU to tele for management/ treatment of seizure likely 2/2 to old stroke, ACS r/o. Plan: Seizure 2/2 to Old CVA Difficult to assess for new onset focal deficit on admission ; repeat seizure witnessed in the ED 06/25 - CT Head - No acute stroke; prior Left parietal infarct visualized, Chronic microvascular disease MRI Brain 2: Chronic encephalomalacia in L posterior frontal and parietal lobes; no acute intracranial findings. CTA head/neck 12: unremarkable Sleep/Awake EEG showed no abnormal activity Echo dilated RA; normal LV size and systolic function (50%); mild to moderate TR C/w ASA 325 PO daily C/w ativan 2mg Q4H PRN C/w depakote 500mg po bid Seizure precaution Fall precaution Speech/swallow eval - puree textures/thin liquids Neuro Consulted Dr Damian, Appreciate recs PT eval ordered, recommend acute rehab and if not possible then [facility] Continue PT, OT and Speech Therapy ACS r/o Patient underwent 1 round CPR in field as per family member; Daughter reports patient possibly aspirated during seizure episode (was drinking water prior to episode) Trops neg x3 EKG in ED demonstrated no ST elevation Lipid panel wnl HbA1C 4.[address] Cohn, appreciate recs recommendation is for conservative management C/w home med Lipitor 20 mg PO din C/w ASA 325 mg PO daily Echo dilated RA; normal LV size and systolic function (50%); mild to moderate TR Hx recurrent UTIs/pos UA U/a on 06/26 pos for protein, small blood, pos nitrate, small LE, WBC 5-10, many bacteria Currently on PO Vantin 200mg po q12h - we will continue until 07/02/2018 for a total of 7 days of abx (received rocephin on day 1 and 2) Pt not having symptoms of UTI at this time Hx HTN Home Norvasc held Avoid aggressive and sudden blood pressure drops due to risk of watershed i nfarct Hx of BPH C/w home med flomax 0.4mg po qd Bladder scans prn Urinary straight cath if bladder scan shows urinary retention Straight cath performed on 06/28/2018 released approx 2200ml of urine Prophylaxis GI: Protonix IVP DVT: Heparin 5000 Q12 Dispo: Transfer to [place] acute rehab pending authorization. Pt seen, examined with, and plan discussed with Dr. Fontana, attending physician. Edgar Hardy DO PGY-1, Washing Machine Striper Pager #[phone] <Hima Fontana - Last Filed: 07/03/18 17:36> Objective - Vital Signs/Intake and Output Vital Signs (last 24 hours): Temp Pulse Resp BP Pulse Ox 97.8 F 83 20 105/71 95 07/03/18 16:58 07/03/18 16:58 07/03/18 16:58 07/03/18 16:58 07/03/18 16:58 - Medications Medications: Current Medications Aspirin (Aspirin Chewable) 81 mg PO DAILY [facility] Last Admin: 07/03/18 11:13 Dose: 81 mg Atorvastatin Calcium (Lipitor) 20 mg PO DIN [facility] Last Admin: 07/02/18 17:29 Dose: 20 mg Divalproex Sodium (Deplenora Dr(*Bid*)) 500 mg PO BID [facility]; Protocol Last Admin: 07/03/18 11:12 Dose: 500 mg Heparin Sodium (Porcine) (Heparin) 5,000 units SC Q12 [facility]; Protocol Last Admin: 07/03/18 11:12 Dose: 5,000 units Pantoprazole Sodium (Protonix Ec Tab) 40 mg PO ACB [facility] Last Admin: 07/03/18 07:30 Dose: 40 mg Tamsulosin HCl (Flomax) 0.4 mg PO DAILY [facility] Last Admin: 07/03/18 11:12 Dose: 0.4 mg - Labs Labs: 07/03/18 09:10 07/03/18 09:10 Attending/Attestation - Attestation I have personally seen and examined this patient.: Yes I have fully participated in the care of the patient.: Yes I have reviewed all pertinent clinical information, including history, physical exam and plan: Yes Notes (Text): 77 y/o M with PMH of CVA with residual right sided deficit, HTN, BPH was admitted after a witnessed seizure episode. CT head was negative for acute findings. Showed old left parietal infarct. MRI showed chronic encephalomalacia in left posterior frontal and parietal lobes. EEG - No abnormal activity c/w depakoate as per neuro recs. ativan PRN, seizure precaution. PT on board recommends acute rehab currently awaiting authorization. Recurrent UTIs HTN BPH
[2018-07-04] MEDS: Pantoprazole 40 mg EC Tab PO SCH (08:26)
[2018-07-04 09:29] LABS: BASO # 0.01 K/mm3 (0.0-2.0); BASO % 0.3 % (0.0-3.0); EOS % 0.3 % (1.5-5.0); GRAN # 1.52 (1.4-6.5); GRAN % 48.6 % (50.0-68.0); LYMPH # 1.3 (1.2-3.4); LYMPH % 40.3 % (22.0-35.0); MEAN CELL VOLUME 83.3 fl (80.0-105.0); MEAN CORPUSCULAR HEMOGLOBIN 27.1 pg (25.0-35.0); MEAN CORPUSCULAR HGB CONC 32.5 g/dl (31.0-37.0); MEAN PLATELET VOLUME 8.7 fl (7.0-11.0); MONO # 0.3 (0.1-0.6); MONO % 10.5 % (1.0-6.0); RBC 4.8 10^6/uL (3.5-6.1); RED CELL DISTRIBUTION WIDTH 14.3 % (11.5-14.5); WHITE BLOOD COUNT 3.1 10^3/uL (4.5-11.0)
[2018-07-04] MEDS: Divalproex 500 mg DR(BID formulation) PO SCH ×2 (09:32→17:59)
[2018-07-04 09:42] LABS: ALBUMIN 3.7 g/dL (3.0-4.8); ALT/SGPT 43 U/L (7-56); AST/SGOT 38 U/L (17-59); BLOOD UREA NITROGEN 23 mg/dL (7-21); CALCIUM 9.2 mg/dL (8.4-10.5); GFR NON-AFRICAN AMERICAN > 60
--- NOTE | 2018-07-04 13:04 | CP.PCM.DIS ---
Provider - Provider Date of Admission: 06/25/18 20:22 Attending physician: Karen Varela DO Primary care physician: Jaqueline Cash MD Consults: 06/25/18 21:15 Cardiology Consult Routine Comment: Consulting Provider: Bernard Cohn Consulting Physician: Bernard Cohn Reason for Consult: Pulselessness + Apneic in field w/ x1 round CPR; R/o ACS Neurology Consult Routine Comment: Consulting Provider: Caroline Damian Consulting Physician: Caroline Damian Reason for Consult: New onset seizure; R/o New onset stroke Time Spent in preparation of Discharge (in minutes): 45 Diagnosis - Discharge Diagnosis (1) Seizure as late effect of cerebrovascular accident (CVA) Status: Acute (2) Chest pain Status: Resolved (3) Recurrent UTI Status: Chronic (4) Hx of essential hypertension Status: Chronic (5) History of BPH Status: Chronic Hospital Course - Lab Results Lab Results: Micro Results 06/25/18 22:51 Nose MRSA Culture (Admit) - Final MRSA NOT DETECTED Most Recent Lab Values WBC 3.1 10^3/uL (4.5-11.0) L 07/04/18 09:15 RBC 4.80 10^6/uL (3.5-6.1) 07/04/18 09:15 Hgb 13.0 g/dL (14.0-18.0) L 07/04/18 09:15 Hct 40.0 % (42.0-52.0) L 07/04/18 09:15 MCV 83.3 fl (80.0-105.0) 07/04/18 09:15 MCH 27.1 pg (25.0-35.0) 07/04/18 09:15 MCHC 32.5 g/dl (31.0-37.0) 07/04/18 09:15 RDW 14.3 % (11.5-14.5) 07/04/18 09:15 Plt Count 259 10^3/uL (120.0-450.0) 07/04/18 09:15 MPV 8.7 fl (7.0-11.0) 07/04/18 09:15 Gran % 48.6 % (50.0-68.0) L 07/04/18 09:15 Lymph % (Auto) 40.3 % (22.0-35.0) H 07/04/18 09:15 [place] % (Auto) 10.5 % (1.0-6.0) H 07/04/18 09:15 Eos % (Auto) 0.3 % (1.5-5.0) L 07/04/18 09:15 Baso % (Auto) 0.3 % (0.0-3.0) 07/04/18 09:15 Gran # 1.52 (1.4-6.5) 07/04/18 09:15 Lymph # (Auto) 1.3 (1.2-3.4) 07/04/18 09:15 [place] # (Auto) 0.3 (0.1-0.6) 07/04/18 09:15 Eos # (Auto) 0.0 (0.0-0.7) 07/04/18 09:15 Baso # (Auto) 0.01 K/mm3 (0.0-2.0) 07/04/18 09:15 pCO2 46 mm/Hg (35-45) H 06/25/18 22:42 pO2 89.0 mm/Hg (80-100) 06/25/18 22:42 HCO3 27.2 mmol/L (21-28) 06/25/18 22:42 ABG pH 7.38 (7.35-7.45) 06/25/18 22:42 ABG Total CO2 28.6 mmol.L (22-28) H 06/25/18 22:42 ABG O2 Saturation 98.4 % (95-98) H 06/25/18 22:42 ABG Base Excess 1.5 mmol/L (-2.0-3.0) 06/25/18 22:42 ABG Potassium 3.1 mmol/L (3.6-5.2) L 06/25/18 22:42 Sodium 138.0 mmol/L (132-148) 06/25/18 22:42 Chloride 104.0 mmol/L (98-107) 06/25/18 22:42 Glucose 125 mg/dl (75-110) H 06/25/18 22:42 Lactate 0.9 mmol/L (0.7-2.1) 06/25/18 22:42 FiO2 28.0 % 06/25/18 22:42 Sodium 139 mmol/L (132-148) 07/04/18 09:15 Potassium 4.7 mmol/L (3.6-5.0) 07/04/18 09:15 Chloride 100 mmol/L (98-107) 07/04/18 09:15 Carbon Dioxide 31 mmol/L (21-33) 07/04/18 09:15 Anion Gap 13 (10-20) 07/04/18 09:15 BUN 23 mg/dL (7-21) H 07/04/18 09:15 Creatinine 0.9 mg/dl (0.8-1.5) 07/04/18 09:15 Est GFR ( Amer) > 60 07/04/18 09:15 Est GFR (Non-Af Amer) > 60 07/04/18 09:15 POC Glucose (mg/dL) 130 mg/dL (65-110) H 06/25/18 18:46 Random Glucose 95 mg/dL (70-110) 07/04/18 09:15 Hemoglobin A1c 4.9 % (4.2-6.5) 06/26/18 05:00 Calcium 9.2 mg/dL (8.4-10.5) 07/04/18 09:15 Phosphorus 2.8 mg/dL (2.5-4.5) 06/26/18 05:00 Magnesium 2.0 mg/dL (1.7-2.2) 06/26/18 05:00 Total Bilirubin 0.3 mg/dL (0.2-1.3) 07/04/18 09:15 AST 38 U/L (17-59) 07/04/18 09:15 ALT 43 U/L (7-56) 07/04/18 09:15 Alkaline Phosphatase 73 U/L (38-126) 07/04/18 09:15 Lactate Dehydrogenase 649 U/L (333-699) 06/25/18 19:04 Total Creatine Kinase 143 U/L (35-230) 06/25/18 19:04 Troponin I < 0.01 ng/mL D 06/26/18 11:30 Total Protein 7.5 g/dL (5.8-8.3) 07/04/18 09:15 Albumin 3.7 g/dL (3.0-4.8) 07/04/18 09:15 Globulin 3.8 gm/dL 07/04/18 09:15 Albumin/Globulin Ratio 1.0 (1.1-1.8) L 07/04/18 09:15 Triglycerides 30 mg/dL (35-160) L 06/26/18 05:00 Cholesterol 136 mg/dL (130-200) 06/26/18 05:00 LDL Cholesterol Direct 79 mg/dL (0-129) 06/26/18 05:00 HDL Cholesterol 51 mg/dL (29-60) 06/26/18 05:00 Arterial Blood Potassium 3.1 mmol/L (3.6-5.2) L 06/25/18 22:42 Urine Color Yellow (YELLOW) 06/26/18 00:45 Urine Appearance Sl cloudy (CLEAR) 06/26/18 00:45 Urine pH 6.5 (4.7-8.0) 06/26/18 00:45 Ur Specific [place] 1.020 (1.005-1.035) 06/26/18 00:45 Urine Protein 30 mg/dL (<30 mg/dL) H 06/26/18 00:45 Urine Glucose (UA) Negative mg/dL (NEGATIVE) 06/26/18 00:45 Urine Ketones Negative mg/dL (NEGATIVE) 06/26/18 00:45 Urine Blood Small (NEGATIVE) H 06/26/18 00:45 Urine Nitrate Positive (NEGATIVE) H 06/26/18 00:45 Urine Bilirubin Negative (NEGATIVE) 06/26/18 00:45 Urine Urobilinogen 0.2 E.U./dL (<1 E.U./dL) 06/26/18 00:45 Ur Leukocyte Esterase Small [place]/uL (NEGATIVE) H 06/26/18 00:45 Urine RBC 5 - 10 /hpf (0-2) H 06/26/18 00:45 Urine WBC 5 - 10 /hpf (0-6) H 06/26/18 00:45 Ur Epithelial Cells 0 - 2 /hpf (0-5) 06/26/18 00:45 Urine Bacteria Many /hpf (NONE) 06/26/18 00:45 Urine Opiates Screen Negative (NEGATIVE) 06/26/18 00:45 Urine Methadone Screen Negative (NEGATIVE) 06/26/18 00:45 Ur Barbiturates Screen Negative (NEGATIVE) 06/26/18 00:45 Ur Phencyclidine Scrn Negative (NEGATIVE) 06/26/18 00:45 Ur Amphetamines Screen Negative (NEGATIVE) 06/26/18 00:45 U Benzodiazepines Scrn Negative (NEGATIVE) 06/26/18 00:45 U Oth Cocaine Metabols Negative (NEGATIVE) 06/26/18 00:45 U Cannabinoids Screen Negative (NEGATIVE) 06/26/18 00:45 Alcohol, Quantitative < 10 mg/dL (0-10) 06/25/18 19:04 - Hospital Course Hospital Course: HPI at time of admission: "77M w/ a PMH of CVA w/ residual R sided deficit, HTN, BPH who prsented to [facility] ED on 06/25/18 brought in by ambulance after family members witnessed patient having seizure like symptoms prior to arrival. Due to patient's condition unable to obtain ROS/HPI from patient, HPI supplemented from family (Daughter in law and son at bedside, as well as chart review). Family reported patient was watching TV when he was found to have a blank staring ahead, and drooling while he was drinking water; developed rigid whole body stiffness, exhibited diffuse tonic/ clonic tremors of UE/LE and foaming at the mouth all which lasted for approximately 2 min. While on phone w/ EMS daughter reported patient lost pulses; became apneic and cyanotic. Subsequently underwent 1 round of CPR by daughter and ROSC was obtained. While patient was in ED; ED staff witnessed patient to have seizure like activity and administered Ativan 2mg IVP once. In the days prior to seizure no changes in vision, weakness. It was reported patient was independent and able to ambulate w/ walker within house." Hospital Course: Pertinent imagin/31 - CT Head - No acute stroke; prior Left parietal infarct visualized, Chronic microvascular disease MRI Brain 2: Chronic encephalomalacia in L posterior frontal and parietal lobes; no acute intracranial findings. CTA head/neck 1/2: unremarkable Sleep/Awake EEG showed no abnormal activity Echo dilated RA; normal LV size and systolic function (50%); mild to moderate TR Pt was admitted for management of seizure. Neurology was consulted (Dr. Damian), who recommended further imaging work-up and deemed cause of the seizure to be 2/2 to chronic old CVA. PT evaluated pt during stay and recommended [facility] for further treatment. Pt was worked up for r/o ACS. Cardiology was consulted (Dr. Cohn) who recommended conservative management. Pt was also treated for UTI for total 7 day course. Pt was also medically managed for hx of HTN and BPH while inpatient. Pt was [facility]. Instructed to continue medications while inpatient on discharge. Instructed to f/u with PMD and Neurology outpatient after discharge from acute rehab. For further details of admission, please refer to hospital EMR. Discharge Exam - Head Exam Head Exam: ATRAUMATIC, NORMOCEPHALIC - Eye Exam Eye Exam: EOMI, Normal appearance, PERRL - ENT Exam ENT Exam: Mucous Membranes Moist - Respiratory Exam Respiratory Exam: Clear to PA & Lateral, NORMAL BREATHING PATTERN, UNREMARKABLE. absent: Rales, Rhonchi, Wheezes - Cardiovascular Exam Cardiovascular Exam: REGULAR RHYTHM, +S1, +S2. absent: Gallop, Rubs, Systolic Murmur - GI/Abdominal Exam GI & Abdominal Exam: Normal Bowel Sounds, Soft, Unremarkable. absent: Tenderness - Extremities Exam Extremities exam: normal capillary refill, normal inspection, pedal pulses present - Neurological Exam Neurological exam: Alert, CN II-XII Intact Additional comments: Oriented x1 - Skin Skin Exam: Dry, Intact, Normal Color, Warm Discharge Plan - Follow Up Plan Condition: FAIR Disposition: HOME/ ROUTINE Instructions: Stroke, Seizures, Adult (DC) Additional Instructions: Please follow-up with your Primary Medical Doctor, Dr Bender, within 3-5 days after discharge from rehab. Please establish care with a neurologist, Dr. Damian, and follow-up with her within 3-5 days after discharge from rehab. Please continue the following medications: 1. Divalproex (Depakote) 500mg 1 tablet at 10AM and 1 tablet at 6PM (this medication is to prevent seizures) 2. Tamsulosin (flomax) 0.4mg 1 tablet DAILY (For URINATION) 3. Atorvastatin 20mg 1 tablet DAILY (FOR CHOLESTEROL) 4. Aspirin 81mg 1 tablet DAILY (FOR STROKE PREVENTION) STOP: 1. Norvasc 10mg DAILY (This was for blood pressure- your pressure has been normal in hospital) 2. Florinef 0.1mg DAILY If symptoms return, please go to your nearest emergency department. Referrals: Caroline Damian MD [Staff Provider] - Jaqueline Cash MD [Primary Care Provider] -
[2018-07-04 17:22] VITALS: BP 113/70; PULSE 82; RESP 19; TEMP 97.6; O2SAT 95
== END 2018-07-04 23:00 | DRG 101 ==
LOC: ED 18:34 → MERGE 20:22 → ERH 20:22 → ICU 22:28 → 3RNO 06-26 18:19
PROVIDERS: ADMIT Internal Medicine; ATTEND Hospitalist
DX: G40.901 Epilepsy, unspecified, not intractable, with status epilepticus (principal); I69.351 Hemiplegia and hemiparesis following cerebral infarction affecting right dominant side; R47.01 Aphasia; N39.0 Urinary tract infection, site not specified; Z79.899 Other long term (current) drug therapy; G93.89 Other specified disorders of brain; E87.6 Hypokalemia; D64.9 Anemia, unspecified; R41.82 Altered mental status, unspecified; R09.02 Hypoxemia; I69.398 Other sequelae of cerebral infarction; F03.90 Unspecified dementia, unspecified severity, without behavioral disturbance, psychotic disturbance, mood disturbance, and anxiety; I10 Essential (primary) hypertension; N40.0 Benign prostatic hyperplasia without lower urinary tract symptoms; R07.9 Chest pain, unspecified; Z87.440 Personal history of urinary (tract) infections; Z87.891 Personal history of nicotine dependence; Z90.79 Acquired absence of other genital organ(s)

== ENCOUNTER 2018-08-30 18:39 | Inpatient (IN) | payer MEDICARE, OTHER ==
[2018-08-30 18:39] VITALS: BMI 18.0
[2018-08-30] MEDS ORDERED: Valproate 500 MG in Sodium Chloride 0.9% 100 ML IVPB ONE (19:16)
--- NOTE | 2018-08-30 19:16 | ED PDOC ---
Arrival/HPI - General Historian: Family, EMS EM Caveat: Altered Mental Status - History of Present Illness Narrative History of Present Illness (Text): 08/30/18 19:12 77M w/ a PMH of CVA w/ residual R sided deficit, HTN, BPH, Seizure, BIBA after family concerned for altered mental status. Family reported to EMS that prior to seizure patient begins to exhibit confusion / altered mental status. During transport EMS witnessed 30 second focal seizure. HPI is limited due to patient condition during evaluation. At time of evaluation patient is AAO1 - Baseline AAO3 as per family; patient appears to be lethargic/ post ictal. Time/Duration: Prior to Arrival, 1-3 hours Symptom Onset: Sudden Symptom Course: Other Quality: Other <Francisco Javier Varela - Last Filed: 08/30/18 20:42> <Barrie Diego DO - Last Filed: 08/30/18 20:54> - General Chief Complaint: Altered Mental Status Time Seen by Provider: 08/30/18 19:12 Past Medical History - Provider Review Nursing Documentation Reviewed: Yes - Infectious Disease Hx of Infectious Diseases: None - Cardiac Hx Hypertension: Yes - Pulmonary Hx Respiratory Disorders: No - Neurological HX Cerebrovascular Accident: Yes - HEENT Hx HEENT Disorder: No - Renal Hx Renal Disorder: No - Endocrine/Metabolic Hx Endocrine Disorders: No - Hematological/Oncological Hx Blood Disorders: Yes - Integumentary Hx Dermatological Disorder: No - Musculoskeletal/Rheumatological Hx Arthritis: Yes - Gastrointestinal Hx Gastrointestinal Disorders: Yes (CONSTIPATION) - Genitourinary/Gynecological Hx Genitourinary Disorders: Yes (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) - Psychiatric Hx Psychophysiologic Disorder: No Hx Substance Use: No - Surgical History Other/Comment: Inguinal hernia repair right - Anesthesia Hx Anesthesia: Yes Hx Anesthesia Reactions: No Hx Malignant Hyperthermia: No <Francisco Javier Varela - Last Filed: 08/30/18 20:42> Family/Social History - Physician Review Nursing Documentation Reviewed: Yes Family/Social History: Unknown Family HX Smoking Status: Former Smoker Hx Alcohol Use: No Hx Substance Use: No <Francisco Javier Varela - Last Filed: 08/30/18 20:42> Allergies/Home Meds <Francisco Javier Varela - Last Filed: 08/30/18 20:42> <Barrie Diego DO - Last Filed: 08/30/18 20:54> Allergies/Adverse Reactions: Allergies No Known Allergies Allergy (Verified 07/04/18 23:48) Home Medications: Home Meds Medication Instructions Recorded Confirmed Tamsulosin [Flomax] 0.4 mg PO HS 06/25/18 08/30/18 Pantoprazole [Protonix EC Tab] 40 mg PO DAILY 07/05/18 08/30/18 Atorvastatin [Lipitor] 20 mg PO HS 08/30/18 08/30/18 Potassium Chloride [Klor-Con 10] 1 tab PO DAILY 08/30/18 08/30/18 amLODIPine [Norvasc] 10 mg PO HS 08/30/18 08/30/18 Review of Systems - Review of Systems Systems not reviewed;Unavailable: Altered Mental Status <Francisco Javier Varela - Last Filed: 08/30/18 20:42> Physical Exam Vital Signs Temp Pulse Resp BP Pulse Ox 08/30/18 19:02 97.9 F 104 H 18 125/80 98 Temperature: Afebrile Blood Pressure: Normal Pulse: Tachycardic Respiratory Rate: Normal Appearance: Positive for: Well-Appearing, Non-Toxic, Comfortable Pain Distress: None Mental Status: Positive for: Alert and Oriented X 3 Finger Stick Blood Glucose: 110 - Systems Exam Head: Present: Atraumatic, Normocephalic Pupils: Present: PERRL Extroacular Muscles: Present: EOMI Conjunctiva: Present: Normal Mouth: Present: Moist Mucous Membranes Neck: Present: Normal Range of Motion Respiratory/Chest: Present: Clear to Auscultation, Good Air Exchange. No: Respiratory Distress, Accessory Muscle Use Cardiovascular: Present: Regular Rate and Rhythm, Normal S1, S2. No: Murmurs Abdomen: No: Tenderness, Distention, Peritoneal Signs Back: Present: Normal Inspection Upper Extremity: Present: Normal Inspection. No: Cyanosis, Edema Lower Extremity: Present: Normal Inspection. No: Edema Neurological: Present: Other (Patient is awake however AAO1 + Lethargic on examination; RUE and RLE exhibit weakness relative to LUE/LLE. ) Skin: Present: Warm, Dry, Normal Color. No: Rashes Psychiatric: No: Oriented x 3 <Francsico Javier aVrela - Last Filed: 08/30/18 20:42> Vital Signs Temp Pulse Resp BP Pulse Ox 08/30/18 20:45 102 H 18 168/76 H 98 08/30/18 19:02 97.9 F 104 H 18 125/80 98 <Barrie Diego DO - Last Filed: 08/30/18 20:54> Medical Decision Making ED Course and Treatment: 08/30/18 19:34 Impression: 78M w/ PMH CVA, Seizure, presenting w/ witnessed seizure. Plan: Break through seizure eval CBC/CMP TROP UA CXR CT HEAD 500mg depakote Progress Notes: 08/30/18 20:42 Patient was exhibiting tonic/clonic episode lasting approximately 1-2 minutes 4mg ativan IVP administered; patient no longer having seizure Case endorsed to Dr. Olivares who accepts patient to hospitalist service - RAD Interpretation Radiology Orders: 08/30/18 19:07 HEAD W/O CONTRAST [CT] Stat 08/30/18 19:09 CHEST PORTABLE [RAD] Stat - EKG Interpretation EKG Interpretation (Text): 08/30/18 19:35 ekg sinus tach hr 104, normoaxis, PVC noted, no ST/T wave changes noted. <Francisco Javier Varela - Last Filed: 08/30/18 20:42> - Lab Interpretations Lab Results: Troponin I < 0.01 ng/mL 08/30/18 19:25 Total Bilirubin 0.4 mg/dL (0.2-1.3) 08/30/18 19:25 AST 36 U/L (17-59) 08/30/18 19:25 ALT 10 U/L (7-56) 08/30/18 19:25 Alkaline Phosphatase 77 U/L (38-126) 08/30/18 19:25 Total Protein 8.8 g/dL (5.8-8.3) H 08/30/18 19:25 Albumin 4.3 g/dL (3.0-4.8) 08/30/18 19:25 Globulin 4.4 gm/dL 08/30/18 19:25 Albumin/Globulin Ratio 1.0 (1.1-1.8) L 08/30/18 19:25 - RAD Interpretation Radiology Orders: 08/30/18 19:07 HEAD W/O CONTRAST [CT] Stat 08/30/18 19:09 CHEST PORTABLE [RAD] Stat - Medication Orders Current Medication Orders: Discontinued Medications Divalproex Sodium (Deplenora Davila(*Bid*)) 500 mg PO STAT STA Stop: 08/30/18 19:30 Last Admin: 08/30/18 19:45 Dose: 500 mg Lorazepam (Ativan) 4 mg IVP ONCE ONE; Protocol Stop: 08/30/18 20:43 Last Admin: 08/30/18 20:35 Dose: 4 mg IVP Administration Document 08/30/18 20:35 KV (Rec: 08/30/18 20:51 KV [facility] [place] Charges for Administration # of IVP Administrations 1 <Barrie Diego DO - Last Filed: 08/30/18 20:54> - PA / [employer] / Resident Statement MICHELLE has reviewed & agrees with the documentation as recorded. MICHELLE has examined the patient and agrees with the treatment plan. <Barrie Diego DO - Last Filed: 08/30/18 20:54> Disposition/Present on Arrival - Present on Arrival Any Indicators Present on Arrival: No History of DVT/PE: No History of Uncontrolled Diabetes: No Urinary Catheter: No History of Decub. Ulcer: No History Surgical Site Infection Following: None - Disposition Have Diagnosis and Disposition been Completed?: Yes Disposition Time: 20:44 Patient Plan: Admission <Francisco Javier Varela - Last Filed: 08/30/18 20:42> - Disposition Disposition Time: 20:25 <Barrie Diego DO - Last Filed: 08/30/18 20:54> - Disposition Diagnosis: Seizure disorder Disposition: HOSPITALIZED Condition: FAIR Referrals: Jaqueline Cash MD [Primary Care Provider] - Follow up with primary Forms: [employer] (Mexican)
[2018-08-30] MEDS ORDERED: Divalproex 500 mg DR(BID formulation) PO STA (19:29)
[2018-08-30 19:36] LABS: BASO # 0.01 K/mm3 (0.0-2.0); BASO % 0.1 % (0.0-3.0); HEMOGLOBIN 13.4 g/dL (14.0-18.0); LYMPH # 0.8 (1.2-3.4); MEAN CELL VOLUME 86.8 fl (80.0-105.0); MEAN CORPUSCULAR HEMOGLOBIN 28.1 pg (25.0-35.0); MEAN CORPUSCULAR HGB CONC 32.4 g/dl (31.0-37.0); MEAN PLATELET VOLUME 8.9 fl (7.0-11.0); MONO # 0.3 (0.1-0.6); MONO % 3.5 % (1.0-6.0); RBC 4.77 10^6/uL (3.5-6.1); RED CELL DISTRIBUTION WIDTH 14.3 % (11.5-14.5); WHITE BLOOD COUNT 8.4 10^3/uL (4.5-11.0)
[2018-08-30 19:51] LABS: ALBUMIN 4.3 g/dL (3.0-4.8); ALT/SGPT 10 U/L (7-56); AST/SGOT 36 U/L (17-59); BLOOD UREA NITROGEN 21 mg/dL (7-21); CALCIUM 9.3 mg/dL (8.4-10.5); GFR NON-AFRICAN AMERICAN > 60
[2018-08-30 20:09] LABS: TROPONIN I < 0.01 ng/mL
--- NOTE | 2018-08-30 20:59 | CP.PCM.HP ---
<Solis Arreaga - Last Filed: 08/31/18 02:31> History of Present Illness - History of Present Illness History of Present Illness: Solis Arreaga, PGY1 Medicine H&P for Dr. Elise manzanares: "altered mental status with witnessed seizure episode" Patient is a 77M w/ a PMH of CVA w/ residual R sided deficit, HTN, BPH, Seizure who was BIBA after family was concerned for altered mental status that led to a seizure episode. Family reported that patient was exhibiting confusion. As per EMS, patient had a witnessed 30 second focal seizure. Medical team evaluated patient in the ED. Notified from ED staff that patient had another seizure in the ED and was given ativan and loaded with depakote. As per ED staff, patient was AAOx1 when brought in (baseline is AAOx3 as per family). Patient is also bedbound as mentioned from family to the ED staff. Patient is currently in post- ictal state. He responds to sternal rub. Family was also not present at bedside during evaluation. ROS unable to be obtained due to acuity of patient's condition. PCP: Shailesh As per prior charting: PMHx: CVA w/ residual R sided deficit, HTN, BPH, Seizure PSHx: TURP in 2018 Allergies: NKDA Medications: see MAR. Family Hx: Mother-- [place]; no family Hx of seizures Social Hx: No tobacco, EtOH; patient lives at home with family Present on Admission - Present on Admission Any Indicators Present on Admission: No Review of Systems - Review of Systems All systems: reviewed and no additional remarkable complaints except (as per HPI.) Past Patient History - Infectious Disease Hx of Infectious Diseases: None - Past Medical History & Family History Past Medical History?: Yes - Past Social History Smoking Status: Former Smoker - CARDIAC Hx Hypertension: Yes - PULMONARY Hx Respiratory Disorders: No - NEUROLOGICAL HX Cerebrovascular Accident: Yes - HEENT Hx HEENT Problems: No - RENAL Hx Chronic Kidney Disease: No - ENDOCRINE/METABOLIC Hx Endocrine Disorders: No - HEMATOLOGICAL/ONCOLOGICAL Hx Blood Disorders: Yes - INTEGUMENTARY Hx Dermatological Problems: No - MUSCULOSKELETAL/RHEUMATOLOGICAL Hx Arthritis: Yes - GASTROINTESTINAL Hx Gastrointestinal Disorders: Yes (CONSTIPATION) - GENITOURINARY/GYNECOLOGICAL Hx Genitourinary Disorders: Yes (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 - Head Exam Head Exam: ATRAUMATIC, NORMAL INSPECTION, NORMOCEPHALIC - Eye Exam Eye Exam: EOMI, Normal appearance Pupil Exam: NORMAL ACCOMODATION - Respiratory Exam Respiratory Exam: Clear to Auscultation Bilateral, NORMAL BREATHING PATTERN. absent: Accessory Muscle Use, Rales, Rhonchi, Wheezes - Cardiovascular Exam Cardiovascular Exam: RRR, +S1, +S2. absent: Systolic Murmur - GI/Abdominal Exam GI & Abdominal Exam: Normal Bowel Sounds, Soft. absent: Firm, Guarding, Rebound, Rigid - Extremities Exam Extremities exam: Positive for: normal capillary refill, pedal pulses present - Back Exam Additional comments: No evidence of sacral ulcers. - Neurological Exam Additional comments: Patient is not alert or oriented. Post-ictal state. - Skin Skin Exam: Dry, Intact, Normal Color, Warm Results - Vital Signs Recent Vital Signs: Last Vital Signs Temp 97.9 F 08/30/18 19:02 Pulse 104 H 08/30/18 19:02 Resp 18 08/30/18 19:02 BP 125/80 08/30/18 19:02 Pulse Ox 98 08/30/18 19:02 - Labs Result Diagrams: 08/30/18 19:25 08/30/18 19:25 Labs: Laboratory Results - last 24 hr 08/30/18 08/30/18 19:25 19:25 WBC 8.4 D RBC 4.77 Hgb 13.4 L Hct 41.4 L MCV 86.8 D MCH 28.1 MCHC 32.4 RDW 14.3 Plt Count 215 MPV 8.9 Neut % (Auto) 87.4 H Lymph % (Auto) 9.0 L [place] % (Auto) 3.5 Eos % (Auto) 0.0 L Baso % (Auto) 0.1 Lymph # (Auto) 0.8 L [place] # (Auto) 0.3 Eos # (Auto) 0.0 Baso # (Auto) 0.01 Absolute Neuts (auto) 7.34 H Sodium 137 Potassium 4.5 Chloride 98 Carbon Dioxide 30 Anion Gap 14 BUN 21 Creatinine 1.1 Est GFR ( Amer) > 60 Est GFR (Non-Af Amer) > 60 Random Glucose 141 H Calcium 9.3 Total Bilirubin 0.4 AST 36 ALT 10 Alkaline Phosphatase 77 Troponin I < 0.01 Total Protein 8.8 H Albumin 4.3 Globulin 4.4 Albumin/Globulin Ratio 1.0 L Assessment & Plan - Assessment and Plan (Free Text) Assessment: Patient is a 77M w/ a PMH of CVA w/ residual R sided deficit, HTN, BPH, Seizure who was BIBA after family was concerned for altered mental status that led to a seizure episode. Patient will be admitted for Seizures. Plan: Seizures - Consider infectious etiology vs medication non-compliance - Ativan 2mg q4 prn - Keppra 750mg IVPB q12 - urine cx, sputum cx, and blood cx - Vanco 1mg IVPB daily - Zosyn IVPB q8 - procal level - seizure and aspiration precautions - Neurochecks - CPK level - NPO - Nursing swallow eval - IVF NS @ 100 cc/hr - Neurology on consult (Dr. Damian) - Urine drug screen - EtOH level - Head CT without contrast: pending official read. No acute pathology as read by health underwriter. Evidence of old left parietal/cerebral infarct (seen on previous imaging). - CXR: no infiltrate or consolidation. HTN - hold home PO meds; pending swallow eval BPH - hold home PO meds; pending swallow eval DVT ppx: hep sc GI ppx: PTX Diet: NPO Dispo: Monitor patient on telemetry. Further recs from neurology. Case was discussed and reviewed with Attending Physician, Dr. Olivares. <Cristina Olivares - Last Filed: 08/31/18 04:05> Results - Vital Signs Recent Vital Signs: Last Vital Signs Temp 99.2 F 08/31/18 00:01 Pulse 101 H 08/31/18 00:01 Resp 20 08/31/18 00:01 BP 145/90 08/31/18 00:01 Pulse Ox 95 08/31/18 00:01 - Labs Result Diagrams: 08/30/18 19:25 08/30/18 19:25 Labs: Laboratory Results - last 24 hr 08/30/18 08/30/1819 19:01 19:25 19:25 WBC 8.4 D RBC 4.77 Hgb 13.4 L Hct 41.4 L MCV 86.8 D MCH 28.1 MCHC 32.4 RDW 14.3 Plt Count 215 MPV 8.9 Neut % (Auto) 87.4 H Lymph % (Auto) 9.0 L [place] % (Auto) 3.5 Eos % (Auto) 0.0 L Baso % (Auto) 0.1 Lymph # (Auto) 0.8 L [place] # (Auto) 0.3 Eos # (Auto) 0.0 Baso # (Auto) 0.01 Absolute Neuts (auto) 7.34 H Sodium 137 Potassium 4.5 Chloride 98 Carbon Dioxide 30 Anion Gap 14 BUN 21 Creatinine 1.1 Est GFR ( Amer) > 60 Est GFR (Non-Af Amer) > 60 POC Glucose (mg/dL) 110 Random Glucose 141 H Calcium 9.3 Total Bilirubin 0.4 AST 36 ALT 10 Alkaline Phosphatase 77 Total Creatine Kinase 97 Troponin I < 0.01 Total Protein 8.8 H Albumin 4.3 Globulin 4.4 Albumin/Globulin Ratio 1.0 L Alcohol, Quantitative 08/30/18 19:25 WBC RBC Hgb Hct MCV MCH MCHC RDW Plt Count MPV Neut % (Auto) Lymph % (Auto) [place] % (Auto) Eos % (Auto) Baso % (Auto) Lymph # (Auto) [place] # (Auto) Eos # (Auto) Baso # (Auto) Absolute Neuts (auto) Sodium Potassium Chloride Carbon Dioxide Anion Gap BUN Creatinine Est GFR ( Amer) Est GFR (Non-Af Amer) POC Glucose (mg/dL) Random Glucose Calcium Total Bilirubin AST ALT Alkaline Phosphatase Total Creatine Kinase Troponin I Total Protein Albumin Globulin Albumin/Globulin Ratio Alcohol, Quantitative < 10 Attending/Attestation - Attestation I have personally seen and examined this patient.: Yes I have fully participated in the care of the patient.: Yes I have reviewed all pertinent clinical information: Yes Notes (Text): 08/31/18 04:03 Seen and examined. Exhibits postictal confusion and sedated on 4 mg Ativan. Noted to be shivering. Will morrison CX and on Ativan prn seizures. Has residual deficit on right from previous CVA.
[2018-08-30] MEDS ORDERED: Piperacillin/Tazobact 3.375 gm 100 ML IVPB SCH (21:25)
[2018-08-30] MEDS ORDERED: Vancomycin 1gm in NS 250ml 1 GM/250 ML BAG IVPB SCH (21:26)
[2018-08-30] MEDS: Sodium Chloride 0.9% 1,000 ML IV SCH (22:18)
[2018-08-30] MEDS: Vancomycin 1gm in NS 250ml 1 GM/250 ML BAG IVPB SCH (23:09)
[2018-08-30] MEDS: Piperacillin/Tazobact 3.375 gm 100 ML IVPB SCH (23:09)
[2018-08-31] MEDS: Piperacillin/Tazobact 3.375 gm 100 ML IVPB SCH (06:03)
[2018-08-31 06:59] LABS: MEAN CELL VOLUME 85.3 fl (80.0-105.0); MEAN CORPUSCULAR HEMOGLOBIN 27.5 pg (25.0-35.0); MEAN CORPUSCULAR HGB CONC 32.3 g/dl (31.0-37.0); MEAN PLATELET VOLUME 9.1 fl (7.0-11.0); RBC 4.36 10^6/uL (3.5-6.1); RED CELL DISTRIBUTION WIDTH 14.3 % (11.5-14.5); WHITE BLOOD COUNT 6.5 10^3/uL (4.5-11.0)
[2018-08-31 07:12] LABS: URINE BILIRUBIN NEGATIVE (NEGATIVE); URINE BLOOD MODERATE (NEGATIVE); URINE GLUCOSE (UA) NEGATIVE (NEGATIVE); URINE LEUKOCYTE ESTERASE NEGATIVE Leu/uL (NEGATIVE); URINE PROTEIN NEGATIVE mg/dL (<30 mg/dL); URINE UROBILINOGEN 0.2 E.U./dL (<1 E.U./dL)
[2018-08-31 07:22] LABS: ALBUMIN 3.5 g/dL (3.0-4.8); ALT/SGPT 11 U/L (7-56); AST/SGOT 27 U/L (17-59); BLOOD UREA NITROGEN 19 mg/dL (7-21); GFR NON-AFRICAN AMERICAN > 60
[2018-08-31 07:23] LABS: URINE APPEARANCE SL CLOUDY (CLEAR); URINE COLOR YELLOW (YELLOW)
[2018-08-31 07:26] LABS: URINE BACTERIA MANY /hpf; URINE RBC 15 - 20 /hpf (0-2); URINE WBC 0 - 2 /hpf (0-6)
--- NOTE | 2018-08-31 08:12 | CT ---
Date of service: 08/30/2018 PROCEDURE: CT HEAD WITHOUT CONTRAST. HISTORY: AMS COMPARISON: 06/25/2018 TECHNIQUE: Axial computed tomography images were obtained through the head/brain without intravenous contrast. Radiation dose: Total exam DLP = 897.65 mGy-cm. This CT exam was performed using one or more of the following dose reduction techniques: Automated exposure control, adjustment of the mA and/or kV according to patient size, and/or use of iterative reconstruction technique. FINDINGS: HEMORRHAGE: No intracranial hemorrhage. BRAIN: No mass effect or edema. There is chronic encephalomalacia in the left posterior frontal lobe. This is unchanged. VENTRICLES: Unremarkable. No hydrocephalus. CALVARIUM: Unremarkable. PARANASAL SINUSES: Unremarkable as visualized. No significant inflammatory changes. MASTOID AIR CELLS: Unremarkable as visualized. No inflammatory changes. OTHER FINDINGS: The report concurs with the preliminary [facility] report IMPRESSION: There is chronic encephalomalacia in the left posterior frontal lobe. This is unchanged. No acute intracranial findings
--- NOTE | 2018-08-31 08:48 | RAD ---
Date of service: 08/30/2018 HISTORY: r/o pna COMPARISON: 06/25/2018 FINDINGS: LUNGS: No active pulmonary disease. PLEURA: No significant pleural effusion identified, no pneumothorax apparent. CARDIOVASCULAR: Aortic calcification Normal cardiac size. No pulmonary vascular congestion. OSSEOUS STRUCTURES: No significant abnormalities. VISUALIZED UPPER ABDOMEN: Normal. OTHER FINDINGS: None. IMPRESSION: No active disease.
[2018-08-31] MEDS: Vancomycin 1gm in NS 250ml 1 GM/250 ML BAG IVPB SCH (10:22)
[2018-08-31] MEDS: Sodium Chloride 0.9% 1,000 ML IV SCH ×2 (10:23→23:45)
--- NOTE | 2018-08-31 17:15 | MRI ---
Date of service: 08/31/2018 PROCEDURE: MRI BRAIN WITHOUT CONTRAST HISTORY: recent seizure, r/o CVA COMPARISON: Noncontrast head CT from 08/30/2018 TECHNIQUE: Multiplanar, multisequence MR images of the brain were obtained without intravenous contrast enhancement. FINDINGS: HEMORRHAGE: None DWI: No evidence of an acute or early subacute infarction. BRAIN PARENCHYMA: There is cystic encephalomalacia and gliosis in the left posterior parietal lobe with volume loss and mild ex vacuo dilatation of the left lateral ventricle. There are moderate chronic microangiopathic changes. There is no mass, mass effect or abnormal extra-axial fluid collection. The midline sagittal structures are normal. VENTRICLES: There is mild age-related global parenchymal volume loss and proportionate enlargement of the ventricles and cortical sulci. CRANIUM: There is normal bone marrow signal pattern. ORBITS: Grossly unremarkable. PARANASAL SINUSES/MASTOIDS: Predominantly clear. VASCULAR SYSTEM: There are normal signal voids in the larger intracranial arteries. OTHER FINDINGS: None. IMPRESSION: No acute intracranial abnormality. Cystic encephalomalacia and gliosis in the left posterior parietal lobe, sequela of remote MCA territory infarction. Moderate chronic microangiopathic changes and mild age-related global parenchymal volume loss.
--- NOTE | 2018-08-31 18:39 | CARD ---
APPROVED REPORT Date of service: 08/30/2018 EKG Measurement Heart [id number] <Conclusion> Sinus tachycardia with premature ventricular complexes Possible Left atrial enlargement Borderline ECG
[2018-08-31] MEDS ORDERED: Vancomycin 1gm in NS 250ml 1 GM/250 ML BAG IVPB SCH (21:24)
[2018-09-01] MEDS: Sodium Chloride 0.9% 1,000 ML IV SCH (04:58)
[2018-09-01 07:23] LABS: HEMOGLOBIN 12.4 g/dL (14.0-18.0); MEAN CELL VOLUME 85.1 fl (80.0-105.0); MEAN CORPUSCULAR HEMOGLOBIN 27.6 pg (25.0-35.0); MEAN CORPUSCULAR HGB CONC 32.5 g/dl (31.0-37.0); MEAN PLATELET VOLUME 9.3 fl (7.0-11.0); RBC 4.49 10^6/uL (3.5-6.1); RED CELL DISTRIBUTION WIDTH 14.1 % (11.5-14.5); WHITE BLOOD COUNT 4.1 10^3/uL (4.5-11.0)
[2018-09-01 07:44] LABS: ALB/GLOB RATIO 0.9 (1.1-1.8); ALBUMIN 3.3 g/dL (3.0-4.8); ALT/SGPT 9 U/L (7-56); AST/SGOT 29 U/L (17-59); BLOOD UREA NITROGEN 14 mg/dL (7-21); CALCIUM 8.9 mg/dL (8.4-10.5); GFR NON-AFRICAN AMERICAN > 60
[2018-09-01] MEDS: Pantoprazole 40 mg EC Tab PO SCH (08:54)
[2018-09-01] MEDS: cefTRIAXone 1 gm 1 GM/100 ML BAG IVPB SCH (09:03)
--- NOTE | 2018-09-01 10:10 | CP.PCM.PN ---
<Daniel John - Last Filed: 09/01/18 10:07> Subjective - Date & Time of Evaluation Date of Evaluation: 09/01/18 Time of Evaluation: 10:07 - Subjective Subjective: Daniel John DO, PGY-1 Hospitalist Progress Note for Dr. Chiu Patient was seen and examined at bedside this AM. He appears more awake and aler t this AM and is responding to questions. He appears to be at baseline. Objective - Vital Signs/Intake and Output Vital Signs (last 24 hours): Temp Pulse Resp BP Pulse Ox 98.2 F 83 18 136/83 95 09/01/18 05:30 09/01/18 05:30 09/01/18 05:30 09/01/18 05:30 09/01/18 05:30 Intake and Output: 09/01/18 09/01/18 06:59 18:59 Intake Total 3233 Output Total 4080 Balance -847 - Medications Medications: Current Medications Amlodipine Besylate (Norvasc) 10 mg PO HS [facility] Aspirin (Aspirin Chewable) 81 mg PO DAILY [facility] Last Admin: 09/01/18 09:04 Dose: 81 mg Atorvastatin Calcium (Lipitor) 20 mg PO HS [facility] Heparin Sodium (Porcine) (Heparin) 5,000 units SC Q8 [facility]; Protocol Last Admin: 09/01/18 06:12 Dose: 5,000 units Levetiracetam 750 mg/ Sodium (Chloride) 107.5 mls @ 215 mls/hr IVPB Q12 [facility] Last Admin: 08/31/18 21:41 Dose: 215 mls/hr Ceftriaxone Sodium (Rocephin 1 Gram Ivpb) 1 gm in 100 mls @ 100 mls/hr IVPB DAILY [facility]; Protocol Last Admin: 09/01/18 09:03 Dose: 100 mls/hr Lorazepam (Ativan) 2 mg IVP Q4H PRN; Protocol PRN Reason: Seizure activity Pantoprazole Sodium (Protonix Ec Tab) 40 mg PO ACB [facility] Last Admin: 09/01/18 08:54 Dose: 40 mg Tamsulosin HCl (Flomax) 0.4 mg PO HS [facility] Last Admin: 08/31/18 21:43 Dose: 0.4 mg - Labs Labs: 09/01/18 07:00 09/01/18 07:00 - Constitutional Appears: Non-toxic, No Acute Distress - Head Exam Head Exam: ATRAUMATIC, NORMOCEPHALIC - Eye Exam Eye Exam: EOMI, PERRL - ENT Exam ENT Exam: Mucous Membranes Moist - Neck Exam Neck Exam: Full ROM. absent: Lymphadenopathy - Respiratory Exam Respiratory Exam: Clear to Ausculation Bilateral, NORMAL BREATHING PATTERN. absent: Rales, Rhonchi, Wheezes - Cardiovascular Exam Cardiovascular Exam: REGULAR RHYTHM, RRR, +S1, +S2. absent: Gallop, Rubs, Murmur - GI/Abdominal Exam GI & Abdominal Exam: Soft, Normal Bowel Sounds. absent: Guarding, Tenderness - Extremities Exam Extremities Exam: Pedal Edema (R sided non-pitting pedal edema) Additional comments: R-sided muscle atrophy both RUE and RLE c/w chronic R-sided hemiplagia - Back Exam Back Exam: NORMAL INSPECTION - Neurological Exam Neurological Exam: Alert, Altered, Awake Neuro motor strength exam: Left Upper Extremity: 5, Right Upper Extremity: 2/1, Left Lower Extremity: 5, Right Lower Extremity: 2/1 Additional comments: expressive aphagia, but responds to verbal stimuli, awake and alert otherwise - Psychiatric Exam Additional comments: Responds to stimuli but otherwise not alert, oriented, has expressive aphagia - Skin Skin Exam: Dry, Intact, Warm Assessment and Plan - Assessment and Plan (Free Text) Assessment: 78 yo M with PMH of CVA w/ residual R sided deficit, HTN, BPH, and seizure diso rder was brought in by family for altered mental status following a seizure. Patient had an additional seizure in ED. He was subsequently admitted for additional management and receipt of IV keppra. Plan: Seizure Disorder Likely 2/2 prior CVA observed again on MRI this admission Per neurology, repeat MRI was needed to verify pt did not have an additional CVA No changes from prior MRI were observed Patient is more alert and awake this AM, appears to be at baseline Continue Keppra 750 mg BID, may switch to PO keppra Continue ativan PRN seizure activity Continue neuro check q4h, seizure pxns Neurology following, all recs appreciated Residual Deficits 2/2 CVA Per neurology, patient is at baseline Swallow evaluation performed, advanced to soft diet D/c IVF Continue to assist with feeds Continue aspiration pxns Will d/c daily labs Neurology following, all recs appreciated HTN Restart home norvasc Urinary Retention/possible UTI Likely 2/2 BPH Cardenas inserted yesterday after patient was noted to be retaining urine on bladder scan Doses of rocephin given for possible UTI, urine cx pending May continue rocephin and d/c if cx is negative Continue flomax HLD Continue lipitor DVT/GI PPX: SC heparin/protonix Full Code HHD D/c telemetry Patient seen, examined with, and plan discussed with my attending Dr. Apple John D.O. IM Resident PGY-1 Pager: [phone] <Emilio Chiu - Last Filed: 09/01/18 16:39> Objective - Vital Signs/Intake and Output Vital Signs (last 24 hours): Temp Pulse Resp BP Pulse Ox 98.1 F 82 18 125/82 95 09/01/18 12:00 09/01/18 12:00 09/01/18 12:00 09/01/18 12:00 09/01/18 05:30 Intake and Output: 09/01/18 09/01/18 06:59 18:59 Intake Total 3233 Output Total 4080 Balance -847 - Medications Medications: Current Medications Amlodipine Besylate (Norvasc) 10 mg PO HS [facility] Aspirin (Aspirin Chewable) 81 mg PO DAILY [facility] Last Admin: 09/01/18 09:04 Dose: 81 mg Atorvastatin Calcium (Lipitor) 20 mg PO HS [facility] Heparin Sodium (Porcine) (Heparin) 5,000 units SC Q8 [facility]; Protocol Last Admin: 09/01/18 14:19 Dose: 5,000 units Ceftriaxone Sodium (Rocephin 1 Gram Ivpb) 1 gm in 100 mls @ 100 mls/hr IVPB DAILY [facility]; Protocol Last Admin: 09/01/18 09:03 Dose: 100 mls/hr Levetiracetam (Keppra) 750 mg PO Q12H [facility] Lorazepam (Ativan) 2 mg IVP Q4H PRN; Protocol PRN Reason: Seizure activity Pantoprazole Sodium (Protonix Ec Tab) 40 mg PO ACB [facility] Last Admin: 09/01/18 08:54 Dose: 40 mg Tamsulosin HCl (Flomax) 0.4 mg PO HS [facility] Last Admin: 08/31/18 21:43 Dose: 0.4 mg - Labs Labs: 09/01/18 07:00 03/09/19 07:00 Attending/Attestation - Attestation I have personally seen and examined this patient.: Yes I have fully participated in the care of the patient.: Yes I have reviewed all pertinent clinical information, including history, physical exam and plan: Yes Notes (Text): Attending note; Patient seen and examined with resident. Patient is alert and awake. Opens eyes for commands. Patient has expressive aphasia. Follows instructions. Patient has right joann Plegia. Patient is a 78 year old male with PMH of CVA with residual R sided deficit, HTN, BPH, and seizure disorder was brought in by family for altered mental status following a seizure. Patient had an additional seizure in ED. 1. Seizure disorder; patient is currently on IV Keppra. Neurology evaluation appreciated. CT head showed chronic encephalomalacia of the left frontal lobe. MRI showed chronic encephalomalacia of frontal and parietal lobe unchanged. No new infarct. Discussed with neurologist in detail. 2. Expressive aphasia; continue speech therapy. 3. Swallow evaluation appreciated; continue mechanically altered chopped diet. With aspiration precautions. 4. Right hemiplegia; due to multiple CVAs. Continue aspirin and Lipitor . continue physical therapy. 5. Hypertension; continue Norvasc . PT evaluation recommended rehab. Case discussed with case briefer in detail for discharge planning. The patient will follow up with PMD Dr. Cash.
[2018-09-01 14:54] LABS: BARBITURATES, UR NEGATIVE (NEGATIVE); BENZODIAZEPINES, UR NEGATIVE (NEGATIVE); OPIATES, UR NEGATIVE (NEGATIVE); PHENCYCLIDINE, UR NEGATIVE (NEGATIVE)
--- NOTE | 2018-09-01 15:16 | CP.PCM.CON ---
History of Present Illness - History of Present Illness History of Present Illness: Neurology consutl dictated. IN brief, MR. 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 He is from the shelter and is maintained on keppra and now admitted with breakthrough seizures. Plan: 1. COntinue keppra 2. MRI Brain to rule out new stroke. DR. Damian Neurology Past Patient History - Infectious Disease Hx of Infectious Diseases: None - Past Medical History & Family History Past Medical History?: Yes - Past Social History Smoking Status: Former Smoker - CARDIAC Hx Cardiac Disorders: Yes - PULMONARY Hx Respiratory Disorders: No - NEUROLOGICAL HX Cerebrovascular Accident: Yes (with residual Rt side deficits) - HEENT Hx HEENT Problems: No - RENAL Hx Chronic Kidney Disease: No - ENDOCRINE/METABOLIC Hx Endocrine Disorders: No - HEMATOLOGICAL/ONCOLOGICAL Hx Blood Disorders: Yes - INTEGUMENTARY Hx Dermatological Problems: No - MUSCULOSKELETAL/RHEUMATOLOGICAL Hx Arthritis: Yes - GASTROINTESTINAL Hx Gastrointestinal Disorders: Yes (CONSTIPATION) - GENITOURINARY/GYNECOLOGICAL Hx Genitourinary Disorders: Yes (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) - PSYCHIATRIC Hx Psychophysiologic Disorder: No Hx Substance Use: No - SURGICAL HISTORY Other/Comment: Inguinal hernia repair right - ANESTHESIA Hx Anesthesia: Yes Hx Anesthesia Reactions: No Hx Malignant Hyperthermia: No Meds Allergies/Adverse Reactions: Allergies Allergy/AdvReac Type Severity Reaction Status Date / Time No Known Allergies Allergy Verified 07/04/18 23:48 - Medications Medications: Current Medications Amlodipine Besylate (Norvasc) 10 mg PO HS [facility] Aspirin (Aspirin Chewable) 81 mg PO DAILY [facility] Last Admin: 09/01/18 09:04 Dose: 81 mg Atorvastatin Calcium (Lipitor) 20 mg PO HS [facility] Heparin Sodium (Porcine) (Heparin) 5,000 units SC Q8 [facility]; Protocol Last Admin: 09/01/18 14:19 Dose: 5,000 units Ceftriaxone Sodium (Rocephin 1 Gram Ivpb) 1 gm in 100 mls @ 100 mls/hr IVPB DAILY [facility]; Protocol Last Admin: 09/01/18 09:03 Dose: 100 mls/hr Levetiracetam (Keppra) 750 mg PO Q12H [facility] Lorazepam (Ativan) 2 mg IVP Q4H PRN; Protocol PRN Reason: Seizure activity Pantoprazole Sodium (Protonix Ec Tab) 40 mg PO ACB [facility] Last Admin: 09/01/18 08:54 Dose: 40 mg Tamsulosin HCl (Flomax) 0.4 mg PO HS [facility] Last Admin: 08/31/18 21:43 Dose: 0.4 mg Results - Vital Signs Recent Vital Signs: Last Vital Signs Temp 98.1 F 09/01/18 12:00 Pulse 82 09/01/18 12:00 Resp 18 09/01/18 12:00 BP 125/82 09/01/18 12:00 Pulse Ox 95 09/01/18 05:30 - Labs Result Diagrams: 09/01/18 07:00 09/01/18 07:00 Labs: Laboratory Results - last 24 hr 09/01/18 09/01/18 09/01/18 07:00 07:00 14:15 WBC 4.1 L D RBC 4.49 Hgb 12.4 L Hct 38.2 L MCV 85.1 MCH 27.6 MCHC 32.5 RDW 14.1 Plt Count 184 MPV 9.3 Sodium 137 Potassium 3.9 Chloride 105 Carbon Dioxide 26 Anion Gap 10 BUN 14 Creatinine 0.8 Est GFR ( Amer) > 60 Est GFR (Non-Af Amer) > 60 Random Glucose 71 Calcium 8.9 Phosphorus 3.5 Magnesium 2.1 Total Bilirubin 0.4 AST 29 ALT 9 Alkaline Phosphatase 62 Total Protein 7.0 Albumin 3.3 Globulin 3.7 Albumin/Globulin Ratio 0.9 L Urine Opiates Screen Negative Urine Methadone Screen Negative Ur Barbiturates Screen Negative Ur Phencyclidine Scrn Negative Ur Amphetamines Screen Negative U Benzodiazepines Scrn Negative U Oth Cocaine Metabols Negative U Cannabinoids Screen Negative
[2018-09-02] MEDS: Pantoprazole 40 mg EC Tab PO SCH (07:56)
[2018-09-02] MEDS: cefTRIAXone 1 gm 1 GM/100 ML BAG IVPB SCH (09:56)
--- NOTE | 2018-09-02 11:27 | CP.PCM.PN ---
<Daniel John - Last Filed: 09/02/18 11:24> Subjective - Date & Time of Evaluation Date of Evaluation: 09/02/18 Time of Evaluation: 07:00 - Subjective Subjective: Daniel John DO, PGY-1 Hospitalist Progress Note for Dr. Chiu Patient was seen and examined at bedside this AM. He generally appears well and states he feels fine. His expressive aphasia appears improved from yesterday. He otherwise offers no new complaints and denies fever/chills, CP, SOB, abd pain/nausea/vomiting. Objective - Vital Signs/Intake and Output Vital Signs (last 24 hours): Temp Pulse Resp BP Pulse Ox 98.3 F 80 20 125/77 96 09/02/18 06:00 09/02/18 06:00 09/02/18 06:00 09/02/18 06:00 09/02/18 06:00 Intake and Output: 09/02/18 09/02/18 06:59 18:59 Intake Total Output Total Balance - Medications Medications: Current Medications Amlodipine Besylate (Norvasc) 10 mg PO HS [facility] Last Admin: 09/01/18 21:24 Dose: 10 mg Aspirin (Aspirin Chewable) 81 mg PO DAILY [facility] Last Admin: 09/02/18 09:56 Dose: 81 mg Atorvastatin Calcium (Lipitor) 20 mg PO HS [facility] Last Admin: 09/01/18 21:23 Dose: 20 mg Heparin Sodium (Porcine) (Heparin) 5,000 units SC Q8 [facility]; Protocol Last Admin: 09/02/18 05:04 Dose: 5,000 units Ceftriaxone Sodium (Rocephin 1 Gram Ivpb) 1 gm in 100 mls @ 100 mls/hr IVPB DAILY [facility]; Protocol Last Admin: 09/02/18 09:56 Dose: 100 mls/hr Vancomycin HCl (Vancomycin 1gm) 1 gm in 250 mls @ 167 mls/hr IVPB Q12H [facility]; Protocol Stop: 09/09/18 10:16 Levetiracetam (Keppra) 750 mg PO Q12H [facility] Last Admin: 09/02/18 09:56 Dose: 750 mg Lorazepam (Ativan) 2 mg IVP Q4H PRN; Protocol PRN Reason: Seizure activity Pantoprazole Sodium (Protonix Ec Tab) 40 mg PO ACB [facility] Last Admin: 09/02/18 07:56 Dose: 40 mg Tamsulosin HCl (Flomax) 0.4 mg PO HS [facility] Last Admin: 09/01/18 21:23 Dose: 0.4 mg - Labs Labs: 09/01/18 07:00 09/01/18 07:00 - Constitutional Appears: No Acute Distress, Chronically Ill - Head Exam Head Exam: ATRAUMATIC, NORMOCEPHALIC - Eye Exam Eye Exam: EOMI, PERRL - ENT Exam ENT Exam: Mucous Membranes Moist - Neck Exam Neck Exam: Full ROM. absent: Lymphadenopathy, Thyromegaly - Respiratory Exam Respiratory Exam: Clear to Ausculation Bilateral, NORMAL BREATHING PATTERN. absent: Rales, Rhonchi, Wheezes - Cardiovascular Exam Cardiovascular Exam: REGULAR RHYTHM, RRR, +S1, +S2. absent: Gallop, Rubs, Murmur - GI/Abdominal Exam GI & Abdominal Exam: Soft, Normal Bowel Sounds. absent: Guarding, Tenderness - Extremities Exam Extremities Exam: Pedal Edema (R sided non-pitting pedal edema) Additional comments: R-sided muscle atrophy both RUE and RLE c/w chronic R-sided hemiplagia - Back Exam Back Exam: NORMAL INSPECTION - Neurological Exam Neurological Exam: Alert, Awake Neuro motor strength exam: Left Upper Extremity: 5, Right Upper Extremity: 2/1, Left Lower Extremity: 5, Right Lower Extremity: 2/1 Additional comments: continues to have expressive aphasia but is more awake and alert today, patient is oriented x 3 - Skin Skin Exam: Dry, Intact, Warm Assessment and Plan - Assessment and Plan (Free Text) Assessment: 78 yo M with PMH of CVA w/ residual R sided deficit, HTN, BPH, and seizure disorder was brought in by family for altered mental status following a seizure. Patient had an additional seizure in ED. He was subsequently admitted for additional management and receipt of IV keppra. Plan: Seizure Disorder Likely 2/2 prior CVA observed again on MRI this admission Patient continues to be awake and alert, oriented x 3 Continue PO Keppra 750 mg BID Continue ativan PRN seizure activity Continue neuro check q4h, seizure pxns Neurology following, all recs appreciated UTI Urine cx positive for GPC, Klebsiella Urine cx was obtained immediately after alcocer insertion so alcocer assoc UTI is less likely On Vanc and rocephin per ID recs ID following, all recs appreciated Urinary Retention Likely 2/2 BPH Alcocer inserted after patient was noted to be retaining urine on bladder scan Continue flomax Gram positive bacteremia Identified in one of 2 bottles Continue vanc/rocephin F/u additional ID recs Residual Deficits 2/2 CVA Per neurology, patient is at baseline Continue to assist with feeds PRN Continue aspiration pxns Neurology following, all recs appreciated HTN Restart home norvasc HLD Continue lipitor DVT/GI PPX: SC heparin/protonix Full Code HHD Monitor on med/surg Patient seen, examined with, and plan discussed with my attending Dr. Aplpe John D.O. IM Resident PGY-1 Pager: [phone] <Emilio Chiu - Last Filed: 09/02/18 12:57> Objective - Vital Signs/Intake and Output Vital Signs (last 24 hours): Temp Pulse Resp BP Pulse Ox 98.3 F 80 20 125/77 96 09/02/18 06:00 09/02/18 06:00 09/02/18 06:00 09/02/18 06:00 09/02/18 06:00 Intake and Output: 09/02/18 09/02/18 06:59 18:59 Intake Total Output Total Balance - Medications Medications: Current Medications Amlodipine Besylate (Norvasc) 10 mg PO HS [facility] Last Admin: 09/01/18 21:24 Dose: 10 mg Aspirin (Aspirin Chewable) 81 mg PO DAILY [facility] Last Admin: 09/02/18 09:56 Dose: 81 mg Atorvastatin Calcium (Lipitor) 20 mg PO HS [facility] Last Admin: 09/01/18 21:23 Dose: 20 mg Heparin Sodium (Porcine) (Heparin) 5,000 units SC Q8 [facility]; Protocol Last Admin: 09/02/18 05:04 Dose: 5,000 units Ceftriaxone Sodium (Rocephin 1 Gram Ivpb) 1 gm in 100 mls @ 100 mls/hr IVPB DAILY [facility]; Protocol Last Admin: 09/02/18 09:56 Dose: 100 mls/hr Vancomycin HCl (Vancomycin 1gm) 1 gm in 250 mls @ 167 mls/hr IVPB Q12H [facility]; Protocol Stop: 09/09/18 10:16 Last Admin: 09/02/18 11:38 Dose: 167 mls/hr Levetiracetam (Keppra) 750 mg PO Q12H [facility] Last Admin: 09/02/18 09:56 Dose: 750 mg Lorazepam (Ativan) 2 mg IVP Q4H PRN; Protocol PRN Reason: Seizure activity Pantoprazole Sodium (Protonix Ec Tab) 40 mg PO ACB [facility] Last Admin: 09/02/18 07:56 Dose: 40 mg Tamsulosin HCl (Flomax) 0.4 mg PO HS [facility] Last Admin: 09/01/18 21:23 Dose: 0.4 mg - Labs Labs: 09/01/18 07:00 09/01/18 07:00 Attending/Attestation - Attestation I have personally seen and examined this patient.: Yes I have fully participated in the care of the patient.: Yes I have reviewed all pertinent clinical information, including history, physical exam and plan: Yes Notes (Text): 09/02/18 12:49 Attending note; Patient seen and examined with resident. Patient is alert and awake. able to answer few questions. attentive. Patient has expressive aphasia/ dysarthria. Patient has right joann Plegia. Patient is a 78 year old male with PMH of CVA with residual R sided deficit, HTN, BPH, and seizure disorder was brought in by family for altered mental status following a seizure. Patient had an additional seizure in ED. 1. Seizure disorder; patient is currently on IV Keppra. Neurology evaluation appreciated. CT head showed chronic encephalomalacia of the left frontal lobe. MRI showed chronic encephalomalacia of frontal and parietal lobe unchanged. No new infarct. 2. Expressive aphasia; continue speech therapy. 3. Swallow evaluation appreciated; continue mechanically altered chopped diet. With aspiration precautions. 4. Right hemiplegia; due to multiple CVAs. Continue aspirin and Lipitor . continue physical therapy. 5. Hypertension; continue Norvasc . 6. Urinary retention; she has Alcocer catheter in place. Voiding trial today. 7. Klebsiella UTI; patient is on IV Rocephin. 8. Gram-positive bacteremia; isolation pending. Case discussed with ID in detail. Currently on IV vancomycin and Rocephin. Repeat blood culture ordered. EchoCardiogram ordered. \ PT evaluation recommended rehab. Case discussed with caseworker intake in detail for discharge planning. The patient will follow up with PMD Dr. Cash. 09/02/18 12:55
[2018-09-02] MEDS: Vancomycin 1gm in NS 250ml 1 GM/250 ML BAG IVPB SCH ×2 (11:38→22:07)
--- NOTE | 2018-09-02 14:35 | CP.PCM.PN ---
Subjective - Date & Time of Evaluation Date of Evaluation: 09/02/18 Time of Evaluation: 14:00 - Subjective Subjective: 78 yr old male with epilepsy related to stroke. NO further seizures noted. ROS: not obtainable due to mental status. On exam: Awake, alert, follows only 1 step commands. EOMI. Wernickes aphasia. Motor: diffuse weakness. Sensory exam: not accurate. Gait not tested. Objective - Vital Signs/Intake and Output Vital Signs (last 24 hours): Temp Pulse Resp BP Pulse Ox 98.3 F 87 15 126/79 96 09/02/18 12:00 09/02/18 12:00 09/02/18 12:00 09/02/18 12:00 09/02/18 06:00 Intake and Output: 09/02/18 09/02/18 06:59 18:59 Intake Total Output Total Balance - Medications Medications: Current Medications Amlodipine Besylate (Norvasc) 10 mg PO HS [facility] Last Admin: 09/01/18 21:24 Dose: 10 mg Aspirin (Aspirin Chewable) 81 mg PO DAILY [facility] Last Admin: 09/02/18 09:56 Dose: 81 mg Atorvastatin Calcium (Lipitor) 20 mg PO HS [facility] Last Admin: 09/01/18 21:23 Dose: 20 mg Heparin Sodium (Porcine) (Heparin) 5,000 units SC Q8 [facility]; Protocol Last Admin: 09/02/18 13:21 Dose: 5,000 units Ceftriaxone Sodium (Rocephin 1 Gram Ivpb) 1 gm in 100 mls @ 100 mls/hr IVPB DAILY [facility]; Protocol Last Admin: 09/02/18 09:56 Dose: 100 mls/hr Vancomycin HCl (Vancomycin 1gm) 1 gm in 250 mls @ 167 mls/hr IVPB Q12H [facility]; Protocol Stop: 09/09/18 10:16 Last Admin: 09/02/18 11:38 Dose: 167 mls/hr Levetiracetam (Keppra) 750 mg PO Q12H [facility] Last Admin: 09/02/18 09:56 Dose: 750 mg Lorazepam (Ativan) 2 mg IVP Q4H PRN; Protocol PRN Reason: Seizure activity Pantoprazole Sodium (Protonix Ec Tab) 40 mg PO ACB [facility] Last Admin: 09/02/18 07:56 Dose: 40 mg Tamsulosin HCl (Flomax) 0.4 mg PO HS [facility] Last Admin: 09/01/18 21:23 Dose: 0.4 mg - Labs Labs: 09/01/18 07:00 09/01/18 07:00 Assessment and Plan - Assessment and Plan (Free Text) Assessment: 78 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 Plan; 1. continue on Keppra at 1000 mg bid. Stable from neurological point of view. Thank you Dr. Damian Neurology
--- NOTE | 2018-09-02 19:23 | CON ---
DATE OF CONSULTATION: 09/02/2018 CHIEF COMPLAINT: Change in mental status x1 day. HISTORY OF PRESENT ILLNESS: This is a 78-year-old male seen in Room 275, Bed 1, with hypertension, cerebrovascular accident, right-sided deficit, BPH, seizures, urinary retention, arthritis, and history of right groin repair, who was admitted because of a seizure activity. The patient has a seizure and it is felt to be a breakthrough seizure. Infectious Disease consultation requested for infection. The patient at this time is a poor historian. It is unclear what his baseline mental status is. He is responsive. He knows his name, but does not know where he is and what year it is. PAST MEDICAL HISTORY: Significant for hypertension, BPH, history of seizures, urinary retention, arthritis, cerebrovascular accident with right-sided deficit. PAST SURGICAL HISTORY: Significant for right inguinal hernia repair. MEDICATIONS AT HOME: Flomax, Depakote, aspirin, amlodipine and atorvastatin. ALLERGIES: THE PATIENT HAS NO KNOWN ALLERGIES. REVIEW OF SYSTEMS: A 12-point review of systems is performed. PHYSICAL EXAMINATION: GENERAL: The patient is in bed in no acute distress, chronically ill. VITAL SIGNS: Temperature of 97, blood pressure is 130/70, respiratory rate of 20, heart rate of 80. The patient's respiratory rate was up to 23. On admission, the patient's heart rate was up to 110. HEENT: Unremarkable. NECK: Supple. LUNGS: Have decreased breath sounds. HEART: Normal S1, S2. ABDOMEN: Soft, nontender. LABORATORY EXAMINATION: White count of 8.4, hemoglobin of 13. Chemistries reveal a BUN of 21, creatinine of 1.1, procalcitonin 0.05. Urinalysis is noted, there is yeast with 0-2 wbc's. Microbiology reveals there is a gram-positive cocci. Blood cultures, one bottle is in chains, gram-positive cocci in chains. The second blood culture is negative. The urine culture has Klebsiella and gram-positive cocci. The Klebsiella is resistant only to ampicillin and intermediate to nitrofurantoin. The patient also had an MRA of the brain, which was negative. ASSESSMENT/PLAN: This is a 78-year-old male with #1 is sepsis with gram-positive cocci in chains, bacteremia, and paced seizures. We will treat the patient with vancomycin, Rocephin. Must rule out endocarditis. We will order an echo, sed rate, C-reactive protein. Will repeat blood cultures x2. We will follow closely with you. Case discussed with PMD. Check on repeat cultures. Check on the identification of gram-positive cocci in chains. Check on the echo, sed rate, C-reactive protein, urine cultures, sputum culture, and we will make further recommendations. Rodrigo Aguilar MD
[2018-09-03 06:50] LABS: BASO # 0.01 K/mm3 (0.0-2.0); BASO % 0.3 % (0.0-3.0); EOS % 0.9 % (1.5-5.0); HEMOGLOBIN 11.8 g/dL (14.0-18.0); LYMPH # 1.3 (1.2-3.4); LYMPH % 37.9 % (22.0-35.0); MEAN CORPUSCULAR HEMOGLOBIN 27.4 pg (25.0-35.0); MEAN CORPUSCULAR HGB CONC 32.7 g/dl (31.0-37.0); MEAN PLATELET VOLUME 9.5 fl (7.0-11.0); MONO # 0.5 (0.1-0.6); MONO % 15.8 % (1.0-6.0); RBC 4.3 10^6/uL (3.5-6.1); RED CELL DISTRIBUTION WIDTH 13.7 % (11.5-14.5); WHITE BLOOD COUNT 3.4 10^3/uL (4.5-11.0)
[2018-09-03 07:02] LABS: ALB/GLOB RATIO 0.9 (1.1-1.8); ALBUMIN 3.1 g/dL (3.0-4.8); ALT/SGPT 17 U/L (7-56); AST/SGOT 41 U/L (17-59); BLOOD UREA NITROGEN 17 mg/dL (7-21); CALCIUM 8.5 mg/dL (8.4-10.5); GFR NON-AFRICAN AMERICAN > 60
[2018-09-03] MEDS: Pantoprazole 40 mg EC Tab PO SCH (09:01)
[2018-09-03] MEDS: cefTRIAXone 1 gm 1 GM/100 ML BAG IVPB SCH (10:15)
[2018-09-03] MEDS: Vancomycin 1gm in NS 250ml 1 GM/250 ML BAG IVPB SCH (10:15)
--- NOTE | 2018-09-03 12:35 | CARD ---
APPROVED REPORT Date of service: 09/03/2018 EXAM: Two-dimensional and M-mode echocardiogram with Doppler and color Doppler. INDICATION Infection:Rule out subacute bacterial endocarditis 2D DIMENSIONS IVSd1.0 (0.7-1.1cm)LVDd3.8 (3.9-5.9cm) PWd0.9 (0.7-1.1cm)LVDs2.5 (2.5-4.0cm) FS (%) 34.5 %LVEF (%)64.4 (>50%) M-Mode DIMENSIONS Aortic Root3.50 (2.2-3.7cm)Aortic Cusp Exc.1.70 (1.5-2.0cm) Aortic Valve AoV Peak Xbaidtac874.0cm/Chari Peak GR.5mmHg Mitral Valve E/A ratio0.0 TDI E/Lateral E'0.0E/Medial E'0.0 Pulmonary Valve PV Peak Bagxooxy17.7cm/sPV Peak Grad.2mmHg Tricuspid Valve TR Peak [id number] [id number] Peak Gr.32mmHg [id number] LEFT VENTRICLE The left ventricle is normal size. There is normal left ventricular wall thickness. The left ventricular function is normal. The left ventricular ejection fraction is within the normal range. There is normal LV segmental wall motion. RIGHT VENTRICLE The right ventricle is normal size. The right ventricular systolic function is normal. ATRIA The left atrium size is normal. The right atrium is mildly dilated. The interatrial septum is intact with no evidence for an atrial septal defect. AORTIC VALVE The aortic valve is normal in structure. No aortic regurgitation is present. There is no aortic valvular stenosis. MITRAL VALVE The mitral valve is normal in structure. There is no mitral valve regurgitation noted. TRICUSPID VALVE The tricuspid valve is normal in structure. There is mild tricuspid regurgitation. PULMONIC VALVE The pulmonic valve is not well visualized. GREAT VESSELS The aortic root is normal in size. The IVC is normal in size and collapses >50% with inspiration. PERICARDIAL EFFUSION There is no pleural effusion. There is no pericardial effusion. <Conclusion> Technically limited study. Some images were of suboptimal quality. Dilated RA. Normal LV size and systolic function. Mild TR. No vegetations seen, but valve imaging was suboptimal. If clinical suspiciion for endocraditis is high, consider RAJEEV imaging.
--- NOTE | 2018-09-03 17:36 | CP.PCM.PN ---
<Mitchell Louis - Last Filed: 09/03/18 17:33> Subjective - Date & Time of Evaluation Date of Evaluation: 09/03/18 Time of Evaluation: 07:00 - Subjective Subjective: Mitchell Louis PGY-1 Progress Note for Hospitalist Service Patient seen and evaluated at bedside. No acute events reported overnight. Patient endorses no acute complaints. His expressive aphasia appears improved from previous documentation. He denies fever/chills, CP, SOB, abd pain/nausea/vomiting, blurry vision, headaches. Objective - Vital Signs/Intake and Output Vital Signs (last 24 hours): Temp Pulse Resp BP Pulse Ox 97.2 F L 81 20 113/65 94 L 09/03/18 17:26 09/03/18 17:26 09/03/18 17:26 09/03/18 17:26 09/03/18 17:26 Intake and Output: 09/03/18 09/03/18 06:59 18:59 Intake Total 360 Output Total 1850 Balance -1490 - Medications Medications: Current Medications Amlodipine Besylate (Norvasc) 10 mg PO HS [facility] Last Admin: 09/02/18 22:06 Dose: 10 mg Aspirin (Aspirin Chewable) 81 mg PO DAILY [facility] Last Admin: 09/03/18 10:14 Dose: 81 mg Atorvastatin Calcium (Lipitor) 20 mg PO HS [facility] Last Admin: 09/02/18 21:40 Dose: 20 mg Heparin Sodium (Porcine) (Heparin) 5,000 units SC Q8 [facility]; Protocol Last Admin: 09/03/18 14:36 Dose: 5,000 units Ceftriaxone Sodium (Rocephin 2 Gm Ivpb) 2 gm in 100 mls @ 100 mls/hr IVPB DAILY [facility]; Protocol Stop: 09/18/18 10:01 Levetiracetam (Keppra) 1,000 mg PO Q12H [facility] Last Admin: 09/03/18 10:14 Dose: 1,000 mg Lorazepam (Ativan) 2 mg IVP Q4H PRN; Protocol PRN Reason: Seizure activity Pantoprazole Sodium (Protonix Ec Tab) 40 mg PO ACB [facility] Last Admin: 09/03/18 09:01 Dose: 40 mg Tamsulosin HCl (Flomax) 0.4 mg PO HS [facility] Last Admin: 03/10/19 21:37 Dose: 0.4 mg - Labs Labs: 09/03/18 05:45 09/03/18 05:45 - Additional Findings Additional findings: - Constitutional Appears: No Acute Distress, Chronically Ill - Head Exam Head Exam: ATRAUMATIC, NORMOCEPHALIC - Eye Exam Eye Exam: EOMI, PERRL - ENT Exam ENT Exam: Mucous Membranes Moist - Neck Exam Neck Exam: Full ROM. absent: Lymphadenopathy, Thyromegaly - Respiratory Exam Respiratory Exam: Clear to Ausculation Bilateral, NORMAL BREATHING PATTERN. absent: Rales, Rhonchi, Wheezes - Cardiovascular Exam Cardiovascular Exam: REGULAR RHYTHM, RRR, +S1, +S2. absent: Gallop, Rubs, Murmur - GI/Abdominal Exam GI & Abdominal Exam: Soft, Normal Bowel Sounds. absent: Guarding, Tenderness - Extremities Exam Extremities Exam: Pedal Edema (R sided non-pitting pedal edema) Additional comments: R-sided muscle atrophy both RUE and RLE c/w chronic R-sided hemiplagia, 3/5 muscle strength RLE, 4/5 RUE - Back Exam Back Exam: NORMAL INSPECTION - Neurological Exam Neurological Exam: Alert, Awake Additional comments: continues to have expressive aphasia but is more awake and alert today, patient is oriented x 2 - Skin Skin Exam: Dry, Intact, Warm Assessment and Plan - Assessment and Plan (Free Text) Assessment: 78 yo M with PMH of CVA w/ residual R sided deficit, HTN, BPH, and seizure disorder was brought in by family for altered mental status following a seizure. Patient had an additional seizure in ED. He was subsequently admitted for additional management with IV Keppra. Plan: Seizure Disorder -Likely 2/2 prior CVA observed again on MRI this admission -Patient continues to be awake and alert -Continue PO Keppra 1000 mg BID per neuro recs -Continue Ativan PRN seizure activity -Continue neuro check q4h, seizure pxns -Neurology following, all recs appreciated UTI -Urine cx positive for Enterococcus, Klebsiella -Continue rocephin per ID recs. [facility]'ed -Will likely require 10-14 days total Rocephin once discharged -ID following, all recs appreciated Urinary Retention -Likely 2/2 BPH -Cardenas inserted after patient was noted to be retaining urine on bladder scan -Continue flomax Gram positive bacteremia 2/2 Strep Sanguis -Continue rocephin -F/u additional ID recs Residual Deficits 2/2 CVA -Per neurology, patient is at baseline -Continue to assist with feeds PRN -Continue aspiration pxns -Neurology following, all recs appreciated HTN -Continue home norvasc HLD -Continue lipitor DVT/GI PPX: SC heparin/protonix Full Code HHD Monitor on med/surg Dispo: PT recommends VIRIDIANA. F/U SW for placement Patient seen, case reviewed and plan approved by Dr. Bruce Varela. Mitchell Louis, PGY-1 <Karen Varela R - Last Filed: 09/03/18 18:26> Objective - Vital Signs/Intake and Output Vital Signs (last 24 hours): Temp Pulse Resp BP Pulse Ox 97.2 F L 81 20 113/65 94 L 09/03/18 17:26 09/03/18 17:26 09/03/18 17:26 09/03/18 17:26 09/03/18 17:26 Intake and Output: 09/03/18 09/03/18 06:59 18:59 Intake Total 360 Output Total 1850 Balance -1490 - Medications Medications: Current Medications Amlodipine Besylate (Norvasc) 10 mg PO HS [facility] Last Admin: 09/02/18 22:06 Dose: 10 mg Aspirin (Aspirin Chewable) 81 mg PO DAILY [facility] Last Admin: 09/03/18 10:14 Dose: 81 mg Atorvastatin Calcium (Lipitor) 20 mg PO HS [facility] Last Admin: 09/02/18 21:40 Dose: 20 mg Heparin Sodium (Porcine) (Heparin) 5,000 units SC Q8 [facility]; Protocol Last Admin: 09/03/18 14:36 Dose: 5,000 units Ceftriaxone Sodium (Rocephin 2 Gm Ivpb) 2 gm in 100 mls @ 100 mls/hr IVPB DAILY [facility]; Protocol Stop: 09/18/18 10:01 Levetiracetam (Keppra) 1,000 mg PO Q12H [facility] Last Admin: 09/03/18 10:14 Dose: 1,000 mg Lorazepam (Ativan) 2 mg IVP Q4H [facility]; Protocol PRN Reason: Seizure activity Pantoprazole Sodium (Protonix Ec Tab) 40 mg PO ACB [facility] Last Admin: 09/03/18 09:01 Dose: 40 mg Tamsulosin HCl (Flomax) 0.4 mg PO HS [facility] Last Admin: 09/02/18 21:37 Dose: 0.4 mg - Labs Labs: 09/03/18 05:45 09/03/18 05:45 Attending/Attestation - Attestation I have personally seen and examined this patient.: Yes I have fully participated in the care of the patient.: Yes I have reviewed all pertinent clinical information, including history, physical exam and plan: Yes Notes (Text): Patient seen and examined by me with resident at 9:50AM on 09/03/18. Case including HPI, physical exam, and assessment and plan discussed with resident. Agree with above with following additions/corrections. Patient is a 77 year old male with past medical history significant for CVA with residual right sided weakness, hypertension, BPH, and seizures that presented to the emergency room secondary to family being concerned about altered mental status the lead to a seizure episode. Patient states that he is feeling ok. Patient denies any pain. Patient has some chronic expressive aphasia. Patient states he has worked with physical therapy. He denies any chest pain or shortness of breath. No nausea, vomiting, or abdominal pain. No headaches or dizziness. No fevers or chills. No dysuria. Physical exam: General: Awake and alert, lying in bed in no acute distress. HEENT: Normocephalic, atraumatic, Extraocular muscles intact, pupils equal and reactive, no scleral icterus. Oropharynx is pink and moist. Neck is supple. Cardiovascular: Normal rhythm. Normal S1 and S2. No murmurs, rubs, or gallops appreciated. Pulmonary: Normal respiratory effort. No rhonchi, rales, or wheezing appreciated. Gastrointestinal: Soft. Nontender. Nondistended. Positive bowel sounds all 4 quadrants. No guarding. Musculoskeletal: Moves all extremities. No calf tenderness. No edema appreciated. Central nervous system: Awake and alert. Positive expressive aphasia. Positive right upper and lower extremity weakness when compared to left (chronic from p revious strokes). Dermatologic: Skin warm and dry. Assessment and plan: Patient is a 77 year old male with past medical history significant for CVA with residual right sided weakness, hypertension, BPH, and seizures that presented to the emergency room secondary to family being concerned about altered mental status the lead to a seizure episode. 1. Refractory epilepsy. Neurology following, recommendations appreciated.S/P IV Keppra. Continue Keppra 1000mg PO q12hrs per neurologist. Continue Ativan prn. Head CT per radiologist showed there is chronic encephalomalacia in the left posterior frontal lobe, this is unchanged; no acute intracranial findings. Brain MRI per radiologist showed no acute intracranial abnormality; cystic encephalomalacia and gliosis in the left posterior parietal lobe, sequela of remote MCA territory infarction, moderate chronic microangiopathic changes and mild age-related global parenchymal volume loss. 2. Gram positive bacteremia. One blood culture positive for Streptococcus Sanguis I. ID following, recommendations appreciated. Continue rocephin and vancomycin. Patient afebrile. 2d echo per cam maker showed technically limited study, some images were of suboptimal quality, dilated right atrium, normal LV size and systolic function, mild tricuspid regurgitation, no vegetations seen but valve imaging suboptimal. 3. UTI. Urine culture positive for Klebisella and enterococcus. ID following, recommendations appreciated. Continue Rocephin and vancomycin. 4. Essential hypertension. Continue Norvasc 5. History of multiple CVAs with residual right sided weakness and expressive aphasia. Continue ASA and lipitor. Continue PT and speech therapy. Pending VIRIDIANA placement. 6. BPH. Urinary retention. Cardenas catheter in place. Continue Flomax. 7. GI/DVT prophylaxis. Protonix/heparin 8. Patient is full code. Case was discussed in detail with the patient regarding current diagnosis and treatment plan. All questions answered.
--- NOTE | 2018-09-03 20:09 | PN ---
DATE: 09/03/2018 SUBJECTIVE: The patient seen in Room 364 earlier today, Bed 1. No fevers and no chills. PHYSICAL EXAMINATION; VITAL SIGNS: Temperature is 98, blood pressure is 113/60, respiratory rate of 20, heart rate of 80. HEENT: Examination of HEENT is unremarkable. NECK: Supple. LUNGS: Have decreased breath sounds. HEART: Normal S1 and S2. ABDOMEN: Soft, nontender. LABORATORY DATA: Laboratory examination reveals the patient's white count of 3.4, hemoglobin of 11. Chemistries are noted. Urinalysis is noted and microbiology reveals Streptococcus sanguinis in one blood culture. The second blood culture is negative and repeat blood cultures are negative. ASSESSMENT AND PLAN: This is a 78-year-old male who was admitted with sepsis with streptococcus sanguinis bacteremia with seizures, doing better. He does have positive urine cultures, although urinalysis is unremarkable and strep sanguinis bacteremia in the face of seizures in the patient with history of cerebrovascular accident with right-sided deficit and urinary retention, arthritis, right groin repair and the echo was negative for endocarditis as per Dr. Thornton. Would complete 10-14 days of ceftriaxone for the bacteremia and we will follow with you. The patient's sedimentation rate is 19, and C-reactive protein is 12.5, slightly elevated above the high normal. Rodrigo Aguilar MD
[2018-09-04 06:37] LABS: BASO # 0.02 K/mm3 (0.0-2.0); BASO % 0.5 % (0.0-3.0); EOS # 0.1 (0.0-0.7); EOS % 1.5 % (1.5-5.0); HEMOGLOBIN 12.5 g/dL (14.0-18.0); LYMPH # 1.4 (1.2-3.4); LYMPH % 35.9 % (22.0-35.0); MEAN CELL VOLUME 83.9 fl (80.0-105.0); MEAN CORPUSCULAR HGB CONC 33.4 g/dl (31.0-37.0); MEAN PLATELET VOLUME 9.1 fl (7.0-11.0); MONO # 0.8 (0.1-0.6); MONO % 20.9 % (1.0-6.0); PLATELET COUNT 226 10^3/uL (120.0-450.0); RBC 4.46 10^6/uL (3.5-6.1); RED CELL DISTRIBUTION WIDTH 13.7 % (11.5-14.5)
[2018-09-04 06:51] LABS: ALB/GLOB RATIO 0.9 (1.1-1.8); ALBUMIN 3.3 g/dL (3.0-4.8); ALT/SGPT 27 U/L (7-56); AST/SGOT 42 U/L (17-59); BLOOD UREA NITROGEN 15 mg/dL (7-21); CALCIUM 8.8 mg/dL (8.4-10.5); GFR NON-AFRICAN AMERICAN > 60
[2018-09-04 08:03] LABS: BASOPHIL 1 % (0.0-1.0); EOSINOPHIL 1 % (0.0-3.0); LYMPHOCYTE 37 % (22.0-35.0); MONOCYTE 18 % (1.0-6.0); NEUTROPHIL 43 % (50.0-70.0)
[2018-09-04 08:04] LABS: PLATELET ESTIMATE NORMAL (NORMAL)
[2018-09-04] MEDS: Pantoprazole 40 mg EC Tab PO SCH (08:27)
[2018-09-04] MEDS: cefTRIAXone 2 GM IN NS 2 GM/100 ML BAG IVPB SCH (09:31)
--- NOTE | 2018-09-04 16:00 | CP.PCM.PN ---
<Mitchell Louis - Last Filed: 09/04/18 15:52> Subjective - Date & Time of Evaluation Date of Evaluation: 09/04/18 Time of Evaluation: 09:00 - Subjective Subjective: Mitchell Louis PGY-1 Progress Note for Hospitalist Service Patient seen and evaluated at bedside. No acute events reported overnight. Patient endorses no acute complaints. His expressive aphasia appears stable. He denies fever/chills, CP, SOB, abd pain/nausea/vomiting, blurry vision, headaches. Patient frequently found sleeping. Objective - Vital Signs/Intake and Output Vital Signs (last 24 hours): Temp Pulse Resp BP Pulse Ox 97.6 F 76 18 112/69 94 L 09/04/18 08:05 09/04/18 08:05 09/04/18 08:05 09/04/18 08:05 09/04/18 08:05 Intake and Output: 09/04/18 09/04/18 06:59 18:59 Intake Total 1260 Output Total 1900 Balance -640 - Medications Medications: Current Medications Amlodipine Besylate (Norvasc) 10 mg PO HS [facility] Last Admin: 09/03/18 21:47 Dose: 10 mg Aspirin (Aspirin Chewable) 81 mg PO DAILY [facility] Last Admin: 09/04/18 09:30 Dose: 81 mg Atorvastatin Calcium (Lipitor) 20 mg PO HS [facility] Last Admin: 09/03/18 21:47 Dose: 20 mg Heparin Sodium (Porcine) (Heparin) 5,000 units SC Q8 [facility]; Protocol Last Admin: 09/04/18 15:27 Dose: 5,000 units Ceftriaxone Sodium (Rocephin 2 Gm Ivpb) 2 gm in 100 mls @ 100 mls/hr IVPB DAILY [facility]; Protocol Stop: 09/18/18 10:01 Last Admin: 09/04/18 09:31 Dose: 100 mls/hr Levetiracetam (Keppra) 1,000 mg PO Q12H [facility] Last Admin: 09/04/18 09:31 Dose: 1,000 mg Lorazepam (Ativan) 2 mg IVP Q4H PRN; Protocol PRN Reason: Seizure activity Pantoprazole Sodium (Protonix Ec Tab) 40 mg PO ACB [facility] Last Admin: 09/04/18 08:27 Dose: 40 mg Tamsulosin HCl (Flomax) 0.4 mg PO HS [facility] Last Admin: 09/03/18 21:47 Dose: 0.4 mg - Labs Labs: 09/04/18 06:00 09/04/18 06:00 - Additional Findings Additional findings: - Constitutional Appears: No Acute Distress, Chronically Ill - Head Exam Head Exam: ATRAUMATIC, NORMOCEPHALIC - Eye Exam Eye Exam: EOMI, PERRL - ENT Exam ENT Exam: Mucous Membranes Moist - Neck Exam Neck Exam: Full ROM. absent: Lymphadenopathy, Thyromegaly - Respiratory Exam Respiratory Exam: Clear to Ausculation Bilateral, NORMAL BREATHING PATTERN. absent: Rales, Rhonchi, Wheezes - Cardiovascular Exam Cardiovascular Exam: REGULAR RHYTHM, RRR, +S1, +S2. absent: Gallop, Rubs, Murmur - GI/Abdominal Exam GI & Abdominal Exam: Soft, Normal Bowel Sounds. absent: Guarding, Tenderness - Extremities Exam Extremities Exam: Pedal Edema (R sided non-pitting pedal edema) Additional comments: R-sided muscle atrophy both RUE and RLE c/w chronic R-sided hemiplagia, 3/5 muscle strength RLE, 4/5 RUE - Back Exam Back Exam: NORMAL INSPECTION - Neurological Exam Neurological Exam: Alert, Awake Additional comments: continues to have expressive aphasia but is awake and alert , patient is oriented x 2 - Skin Skin Exam: Dry, Intact, Warm Assessment and Plan - Assessment and Plan (Free Text) Assessment: 78 yo M with PMH of CVA w/ residual R sided deficit, HTN, BPH, and seizure disorder was brought in by family for altered mental status following a seizure. Patient had an additional seizure in ED. He was subsequently admitted for additional management with IV Keppra. Currently treated for Strep sanguis bacteremia. Plan: Seizure Disorder -Likely 2/2 prior CVA observed again on MRI this admission -Patient continues to be awake and alert -Continue PO Keppra 1000 mg BID per neuro recs -Continue Ativan PRN seizure activity -Continue neuro check q4h, seizure pxns -Neurology following, all recs appreciated UTI -Urine cx positive for Enterococcus, Klebsiella -Continue rocephin per ID recs -Will likely require another week's worth of Rocephin for total 10 days -ID following, all recs appreciated Urinary Retention -Likely 2/2 BPH -Voiding trial performed. Patient urinated spontaneously when catheter was clamped without verbalizing need to urinate, possibly as result of expressive apahasia. -Continue flomax Gram positive bacteremia 2/2 Strep Sanguis -Continue rocephin -F/u additional ID recs Residual Deficits 2/2 CVA -Per neurology, patient is at baseline -Continue to assist with feeds PRN -Continue aspiration pxns -Neurology following, all recs appreciated HTN -Continue home norvasc HLD -Continue lipitor DVT/GI PPX: SC heparin/protonix Full Code HHD Monitor on med/surg Dispo: PT recommends [facility]. F/U SW for placement Patient seen, case reviewed and plan approved by Dr. Bruce Varela. Mitchell Louis, PGY-1 <Karen Varela R - Last Filed: 09/05/18 07:36> Objective - Vital Signs/Intake and Output Vital Signs (last 24 hours): Temp Pulse Resp BP Pulse Ox 97.9 F 75 20 112/69 94 L 09/05/18 06:00 09/05/18 06:00 09/05/18 06:00 09/05/18 06:00 09/05/18 06:00 Intake and Output: 09/05/18 09/05/18 06:59 18:59 Intake Total 1260 Output Total 700 Balance 560 - Medications Medications: Current Medications Amlodipine Besylate (Norvasc) 10 mg PO HS [facility] Last Admin: 09/04/18 21:35 Dose: 10 mg Aspirin (Aspirin Chewable) 81 mg PO DAILY [facility] Last Admin: 09/04/18 09:30 Dose: 81 mg Atorvastatin Calcium (Lipitor) 20 mg PO HS [facility] Last Admin: 09/04/18 21:35 Dose: 20 mg Heparin Sodium (Porcine) (Heparin) 5,000 units SC Q8 [facility]; Protocol Last Admin: 09/05/18 05:13 Dose: 5,000 units Ceftriaxone Sodium (Rocephin 2 Gm Ivpb) 2 gm in 100 mls @ 100 mls/hr IVPB DAILY [facility]; Protocol Stop: 09/18/18 10:01 Last Admin: 09/04/18 09:31 Dose: 100 mls/hr Levetiracetam (Keppra) 1,000 mg PO Q12H [facility] Last Admin: 09/04/18 21:35 Dose: 1,000 mg Lorazepam (Ativan) 2 mg IVP Q4H [facility]; Protocol PRN Reason: Seizure activity Pantoprazole Sodium (Protonix Ec Tab) 40 mg PO ACB [facility] Last Admin: 09/04/18 08:27 Dose: 40 mg Tamsulosin HCl (Flomax) 0.4 mg PO HS [facility] Last Admin: 09/04/18 21:35 Dose: 0.4 mg - Labs Labs: 09/04/18 06:00 09/04/18 06:00 Attending/Attestation - Attestation I have personally seen and examined this patient.: Yes I have fully participated in the care of the patient.: Yes I have reviewed all pertinent clinical information, including history, physical exam and plan: Yes Notes (Text): Patient seen and examined by me with resident at 10:05AM on 09/04/18. Case including HPI, physical exam, and assessment and plan discussed with resident. Agree with above with following additions/corrections. Patient is a 77 year old male with past medical history significant for CVA with residual right sided weakness, hypertension, BPH, and seizures that presented to the emergency room secondary to family being concerned about altered mental status the lead to a seizure episode. Patient states that he feeks ok. Patient has chronic expressive aphasia. Patient has no pain. Patient is doing voiding trials. Patient denies chest pain and shortness of breath. No palpitations. No nausea, vomiting, or abdominal pain. No headaches or dizziness. No fevers or chills. Cardenas catheter clamped. Physical exam: General: Awake and alert, lying in bed in no acute distress. HEENT: Normocephalic, atraumatic, Extraocular muscles intact, pupils equal and reactive, no scleral icterus. Oropharynx is pink and moist. Neck is supple. Cardiovascular: Normal rhythm. Normal S1 and S2. No murmurs, rubs, or gallops appreciated. Pulmonary: Normal respiratory effort. No rhonchi, rales, or wheezing appreciated. Gastrointestinal: Soft. Nontender. Nondistended. Positive bowel sounds all 4 quadrants. No guarding. Musculoskeletal: Moves all extremities. No calf tenderness. No edema appreciated. Central nervous system: Awake and alert. Positive expressive aphasia. Positive right upper and lower extremity weakness when compared to left (chronic from previous strokes). Dermatologic: Skin warm and dry. Assessment and plan: Patient is a 77 year old male with past medical history significant for CVA with residual right sided weakness, hypertension, BPH, and seizures that presented to the emergency room secondary to family being concerne d about altered mental status the lead to a seizure episode. 1. Refractory epilepsy. Neurology recommendations appreciated. S/P IV Keppra. Continue Keppra 1000mg PO q12hrs per neurologist. No more seizures in the hospital. Continue Ativan prn. Patient pending VIRIDIANA placement. Head CT per radiologist showed there is chronic encephalomalacia in the left posterior frontal lobe, this is unchanged; no acute intracranial findings. Brain MRI per radiologist showed no acute intracranial abnormality; cystic encephalomalacia and gliosis in the left posterior parietal lobe, sequela of remote MCA territory infarction, moderate chronic microangiopathic changes and mild age-related global parenchymal volume loss. 2. Gram positive bacteremia. One blood culture positive for Streptococcus Sanguis I. ID following, recommendations appreciated. Continue Rocephin 2gram IV daily for 10 days. Patient afebrile. 2d echo per salesforce consultant showed technically limited study, some images were of suboptimal quality, dilated right atrium, normal LV size and systolic function, mild tricuspid regurgitation, no vegetations seen but valve imaging suboptimal. 3. UTI. Urine culture positive for Klebisella and enterococcus. ID following, recommendations appreciated. Likely colonization per ID. 4. Essential hypertension. Continue Norvasc 5. History of multiple CVAs with residual right sided weakness and expressive aphasia. Continue ASA and lipitor. Continue PT and speech therapy. Pending VIRIDIANA placement. 6. BPH. Urinary retention. Cardenas catheter in place. Continue voiding trials. Continue Flomax. 7. GI/DVT prophylaxis. Protonix/heparin 8. Patient is full code. 9. Disposition. Pending VIRIDIANA placement. Case was discussed in detail with the patient regarding current diagnosis and treatment plan. All questions answered.
--- NOTE | 2018-09-05 00:35 | PN ---
DATE: 09/05/2018 SUBJECTIVE: The patient is in bed in no acute cute distress, nontoxic. PHYSICAL EXAMINATION VITAL SIGNS: Temperature is 98, blood pressure is 104/60, respiratory rate of 18. HEENT: Unremarkable. NECK: Supple. CARDIOPULMONARY: Heart, normal S1, S2. LUNGS: Have decreased breath sounds. ABDOMEN: Soft. LABORATORY DATA: Reveals a white count is 4, hemoglobin is 12, platelets of 226. Chemistries reveals a BUN of 16, creatinine is 0.9. Urinalysis is noted and serology is noted and microbiology reveals that the repeat blood cultures are no growth. Initial blood cultures are positive for strep sanguinis. MEDICATIONS: Review of orders reveals the patient to be on ceftriaxone. ASSESSMENT AND PLAN: A 78-year-old male who was seen early this morning, admitted with sepsis, streptococcus sanguinis bacteremia, and the patient was admitted with seizures, now doing much better this morning, was communicating and in a patient with a history of cerebrovascular accident, right-sided deficit, urinary retention, arthritis. Had an echo which was negative for endocarditis, would complete 10 to 14 days of ceftriaxone, today is day #3 of 10 to 14 days. Rodrigo Aguilar MD
[2018-09-05 07:26] VITALS: O2SAT 94
[2018-09-05 08:20] LABS: BASO # 0.01 K/mm3 (0.0-2.0); BASO % 0.3 % (0.0-3.0); EOS # 0.1 (0.0-0.7); EOS % 1.3 % (1.5-5.0); HEMOGLOBIN 12.1 g/dL (14.0-18.0); LYMPH # 1.6 (1.2-3.4); LYMPH % 42.5 % (22.0-35.0); MEAN CELL VOLUME 84.4 fl (80.0-105.0); MEAN CORPUSCULAR HEMOGLOBIN 27.8 pg (25.0-35.0); MEAN CORPUSCULAR HGB CONC 32.9 g/dl (31.0-37.0); MONO # 0.8 (0.1-0.6); MONO % 19.7 % (1.0-6.0); RBC 4.36 10^6/uL (3.5-6.1); RED CELL DISTRIBUTION WIDTH 13.7 % (11.5-14.5); WHITE BLOOD COUNT 3.9 10^3/uL (4.5-11.0)
[2018-09-05 08:34] LABS: ALB/GLOB RATIO 0.9 (1.1-1.8); ALBUMIN 3.3 g/dL (3.0-4.8); ALT/SGPT 36 U/L (7-56); AST/SGOT 47 U/L (17-59); BLOOD UREA NITROGEN 17 mg/dL (7-21); CALCIUM 8.9 mg/dL (8.4-10.5); GFR NON-AFRICAN AMERICAN > 60
[2018-09-05] MEDS: cefTRIAXone 2 GM IN NS 2 GM/100 ML BAG IVPB SCH (09:08)
[2018-09-05] MEDS: Pantoprazole 40 mg EC Tab PO SCH (09:08)
--- NOTE | 2018-09-05 15:48 | CP.PCM.PN ---
<Mitchell Lousi - Last Filed: 09/05/18 15:45> Subjective - Date & Time of Evaluation Date of Evaluation: 09/05/18 Time of Evaluation: 09:00 - Subjective Subjective: Mitchell Louis, PGY-1 Progress Note for Hospitalist Service Patient seen and evaluated at bedside. No acute events reported overnight. Patient endorses no acute complaints. His expressive aphasia appears stable. He denies fever/chills, CP, SOB, abd pain/nausea/vomiting, blurry vision, headaches. Cardenas in place. Voiding trial failed yesterday. Objective - Vital Signs/Intake and Output Vital Signs (last 24 hours): Temp Pulse Resp BP Pulse Ox 97.9 F 75 20 112/69 94 L 09/05/18 06:00 09/05/18 06:00 09/05/18 06:00 09/05/18 06:00 09/05/18 06:00 Intake and Output: 09/05/18 09/05/18 06:59 18:59 Intake Total 1260 Output Total 700 Balance 560 - Medications Medications: Current Medications Amlodipine Besylate (Norvasc) 10 mg PO HS [facility] Last Admin: 09/04/18 21:35 Dose: 10 mg Aspirin (Aspirin Chewable) 81 mg PO DAILY [facility] Last Admin: 09/05/18 09:09 Dose: 81 mg Atorvastatin Calcium (Lipitor) 20 mg PO HS [facility] Last Admin: 09/04/18 21:35 Dose: 20 mg Heparin Sodium (Porcine) (Heparin) 5,000 units SC Q8 [facility]; Protocol Last Admin: 09/05/18 05:13 Dose: 5,000 units Ceftriaxone Sodium (Rocephin 2 Gm Ivpb) 2 gm in 100 mls @ 100 mls/hr IVPB DAILY [facility]; Protocol Stop: 09/18/18 10:01 Last Admin: 09/05/18 09:08 Dose: 100 mls/hr Levetiracetam (Keppra) 1,000 mg PO Q12H [facility] Last Admin: 09/05/18 10:22 Dose: 1,000 mg Lorazepam (Ativan) 2 mg IVP Q4H PRN; Protocol PRN Reason: Seizure activity Pantoprazole Sodium (Protonix Ec Tab) 40 mg PO ACB [facility] Last Admin: 09/05/18 09:08 Dose: 40 mg Tamsulosin HCl (Flomax) 0.4 mg PO HS [facility] Last Admin: 09/04/18 21:35 Dose: 0.4 mg - Labs Labs: 09/05/18 08:00 09/05/18 08:00 - Additional Findings Additional findings: - Constitutional Appears: No Acute Distress, Chronically Ill - Head Exam Head Exam: ATRAUMATIC, NORMOCEPHALIC - Eye Exam Eye Exam: EOMI, PERRL - ENT Exam ENT Exam: Mucous Membranes Moist - Neck Exam Neck Exam: Full ROM. absent: Lymphadenopathy, Thyromegaly - Respiratory Exam Respiratory Exam: Clear to Ausculation Bilateral, NORMAL BREATHING PATTERN. absent: Rales, Rhonchi, Wheezes - Cardiovascular Exam Cardiovascular Exam: REGULAR RHYTHM, RRR, +S1, +S2. absent: Gallop, Rubs, Murmur - GI/Abdominal Exam GI & Abdominal Exam: Soft, Normal Bowel Sounds. absent: Guarding, Tenderness - Extremities Exam Extremities Exam: Pedal Edema (R sided non-pitting pedal edema) Additional comments: R-sided muscle atrophy both RUE and RLE c/w chronic R-sided hemiplagia, 3/5 muscle strength RLE, 4/5 RUE - Back Exam Back Exam: NORMAL INSPECTION - Neurological Exam Neurological Exam: Alert, Awake Additional comments: continues to have expressive aphasia but is awake and alert , patient is orient ed x 2 - Skin Skin Exam: Dry, Intact, Warm Assessment and Plan - Assessment and Plan (Free Text) Assessment: 78 yo M with PMH of CVA w/ residual R sided deficit, HTN, BPH, and seizure disorder was brought in by family for altered mental status following a seizure. Patient had an additional seizure in ED. He was subsequently admitted for additional management with IV Keppra. Currently treated for Strep sanguis bacteremia. Plan: Seizure Disorder -Likely 2/2 prior CVA observed again on MRI this admission -Patient continues to be awake and alert -Continue PO Keppra 1000 mg BID per neuro recs -Continue Ativan PRN seizure activity -Continue neuro check q4h, seizure pxns -Neurology following, all recs appreciated UTI -Urine cx positive for Enterococcus, Klebsiella -Continue rocephin per ID recs, dose increased to 2 gm yesterday -Will likely require another 8 days worth of Rocephin for total 10 days -ID following, all recs appreciated Urinary Retention -Likely 2/2 BPH -F/U repeat voiding trial -Continue flomax Gram positive bacteremia 2/2 Strep Sanguis -Continue rocephin -F/u additional ID recs Residual Deficits 2/2 CVA -Per neurology, patient is at baseline -Continue to assist with feeds PRN -Continue aspiration pxns -Neurology following, all recs appreciated HTN -Continue home norvasc HLD -Continue lipitor DVT/GI PPX: SC heparin/protonix Full Code HHD Monitor on med/surg Dispo: PT recommends [facility]. F/U SW for placement. Patient seen, case reviewed and plan approved by Dr. Bruce Varela. Mitchell Louis, PGY-1 <Karen Varela R - Last Filed: 09/05/18 16:38> Objective - Vital Signs/Intake and Output Vital Signs (last 24 hours): Temp Pulse Resp BP Pulse Ox 97.9 F 75 20 112/69 94 L 09/05/18 06:00 09/05/18 06:00 09/05/18 06:00 09/05/18 06:00 09/05/18 06:00 Intake and Output: 09/05/18 09/05/18 06:59 18:59 Intake Total 1260 Output Total 700 Balance 560 - Medications Medications: Current Medications Amlodipine Besylate (Norvasc) 10 mg PO HS [facility] Last Admin: 09/04/18 21:35 Dose: 10 mg Aspirin (Aspirin Chewable) 81 mg PO DAILY [facility] Last Admin: 09/05/18 09:09 Dose: 81 mg Atorvastatin Calcium (Lipitor) 20 mg PO HS [facility] Last Admin: 09/04/18 21:35 Dose: 20 mg Heparin Sodium (Porcine) (Heparin) 5,000 units SC Q8 [facility]; Protocol Last Admin: 09/05/18 05:13 Dose: 5,000 units Ceftriaxone Sodium (Rocephin 2 Gm Ivpb) 2 gm in 100 mls @ 100 mls/hr IVPB DAILY [facility]; Protocol Stop: 09/18/18 10:01 Last Admin: 09/05/18 09:08 Dose: 100 mls/hr Levetiracetam (Keppra) 1,000 mg PO Q12H [facility] Last Admin: 09/05/18 10:22 Dose: 1,000 mg Lorazepam (Ativan) 2 mg IVP Q4H [facility]; Protocol PRN Reason: Seizure activity Pantoprazole Sodium (Protonix Ec Tab) 40 mg PO ACB [facility] Last Admin: 09/05/18 09:08 Dose: 40 mg Tamsulosin HCl (Flomax) 0.4 mg PO HS [facility] Last Admin: 09/04/18 21:35 Dose: 0.4 mg - Labs Labs: 09/05/18 08:00 09/05/18 08:00 Attending/Attestation - Attestation I have personally seen and examined this patient.: Yes I have fully participated in the care of the patient.: Yes I have reviewed all pertinent clinical information, including history, physical exam and plan: Yes Notes (Text): Patient seen and examined by me with resident at 9:50AM on 09/05/18. Case including HPI, physical exam, and assessment and plan discussed with resident. Agree with above with following additions/corrections. Patient is a 77 year old male with past medical history significant for CVA with residual right sided weakness, hypertension, BPH, and seizures that presented to the emergency room secondary to family being concerned about altered mental status the lead to a seizure episode. Patient states that he feels fine. Patient with chronic expressive aphasia. Patient denies pain. Patient is again trying voiding trials. No chest pain and shortness of breath. No palpitations. No nausea, vomiting, or abdominal pain. No headaches or dizziness. No fevers or chills. Cardenas catheter clamped. Physical exam: General: Awake and alert, lying in bed in no acute distress. HEENT: Normocephalic, atraumatic, Extraocular muscles intact, pupils equal and reactive, no scleral icterus. Oropharynx is pink and moist. Neck is supple. Cardiovascular: Normal rhythm. Normal S1 and S2. No murmurs, rubs, or gallops appreciated. Pulmonary: Normal respiratory effort. No rhonchi, rales, or wheezing appreciated. Gastrointestinal: Soft. Nontender. Nondistended. Positive bowel sounds all 4 quadrants. No guarding. Musculoskeletal: Moves all extremities. No calf tenderness. No edema appreciated. Central nervous system: Awake and alert. Positive expressive aphasia. Positive right upper and lower extremity weakness when compared to left (chronic from previous strokes). Dermatologic: Skin warm and dry. Assessment and plan: Patient is a 77 year old male with past medical history significant for CVA with residual right sided weakness, hypertension, BPH, and seizures that presented to the emergency room secondary to family being concerned about altered mental status the lead to a seizure episode. 1. Refractory epilepsy. Neurology recommendations appreciated. Continue Keppra 1000mg PO q12hrs per neurologist. S/P IV Keppra. No more seizures in the hospital. Continue Ativan prn. Patient pending [facility] placement. Head CT per radiologist showed there is chronic encephalomalacia in the left posterior frontal lobe, this is unchanged; no acute intracranial findings. Brain MRI per radiologist showed no acute intracranial abnormality; cystic encephalomalacia and gliosis in the left posterior parietal lobe, sequela of remote MCA territory infarction, moderate chronic microangiopathic changes and mild age-related global parenchymal volume loss. 2. Gram positive bacteremia. One blood culture positive for Streptococcus Sangu is I. ID following, recommendations appreciated. Continue Rocephin 2gram IV daily for total of 10 days per ID. Patient afebrile. 2d echo per chef broiler or fry showed technically limited study, some images were of suboptimal quality, dilated right atrium, normal LV size and systolic function, mild tricuspid regurgitation, no vegetations seen but valve imaging suboptimal. 3. UTI. Urine culture positive for Klebisella and enterococcus. ID following, recommendations appreciated. Likely colonization per ID. 4. Essential hypertension. Continue Norvasc 5. History of multiple CVAs with residual right sided weakness and expressive aphasia. Continue ASA and lipitor. Continue PT and speech therapy. Pending [facility] placement. 6. BPH. Urinary retention. Cardenas catheter in place. Continue voiding trials. Continue Flomax. 7. GI/DVT prophylaxis. Protonix/heparin 8. Patient is full code. 9. Disposition. Pending [facility] placement. Case was discussed in detail with the patient regarding current diagnosis and treatment plan. All questions answered.
[2018-09-05 16:40] VITALS: PULSE 76; RESP 18; TEMP 98.2
--- NOTE | 2018-09-05 17:11 | CP.PCM.DIS ---
<Mitchell Louis - Last Filed: 09/05/18 16:53> Provider - Provider Date of Admission: 08/30/18 20:42 Attending physician: Emilio Chiu MD Primary care physician: Jaqueline Cash MD Consults: 08/30/18 21:01 Physician Consult Routine Comment: Consulting Provider: Caroline Damian Consulting Physician: Caroline Damian Reason for Consult: seizure 08/30/18 23:43 Social Work Referral Routine Comment: Lars Score 15 Physician Instructions: Reason For Exam: Protocol 08/31/18 15:45 Case Management Referral Routine Comment: Physician Instructions: Reason For Exam: VIRIDIANA placement Reason for Referral: Discharge Planning 09/01/18 20:38 Physician Consult Routine Comment: Consulting Provider: Rodrigo Aguilar Consulting Physician: Rodrigo Aguilar Reason for Consult: gram positive cocci bacteremia Time Spent in preparation of Discharge (in minutes): 35 Hospital Course - Lab Results Lab Results: Micro Results 09/02/18 10:30 Blood Blood Culture - Preliminary NO GROWTH AFTER 3 DAYS 09/02/18 10:15 Blood Blood Culture - Preliminary NO GROWTH AFTER 3 DAYS 08/30/18 21:35 Blood Blood Culture - Final NO GROWTH AFTER 5 DAYS 08/30/18 21:35 Blood Gram Stain - Final TEST NOT PERFORMED 08/30/18 21:20 Blood S.aureus & Coag-Neg Staph PNA FISH - Final TEST NOT PERFORMED 08/30/18 21:20 Blood Blood Culture - Final Streptococcus Sangius I 08/30/18 21:20 Blood Gram Stain - Final 08/31/18 07:17 Urine,Alcocer Urine Culture - Final Klebsiella Pneumoniae Ssp Pneu Enterococcus Faecium Most Recent Lab Values WBC 3.9 10^3/uL (4.5-11.0) L 09/05/18 08:00 RBC 4.36 10^6/uL (3.5-6.1) 09/05/18 08:00 Hgb 12.1 g/dL (14.0-18.0) L 09/05/18 08:00 Hct 36.8 % (42.0-52.0) L 09/05/18 08:00 MCV 84.4 fl (80.0-105.0) 09/05/18 08:00 MCH 27.8 pg (25.0-35.0) 09/05/18 08:00 MCHC 32.9 g/dl (31.0-37.0) 09/05/18 08:00 RDW 13.7 % (11.5-14.5) 09/05/18 08:00 Plt Count 236 10^3/uL (120.0-450.0) 09/05/18 08:00 MPV 9.0 fl (7.0-11.0) 09/05/18 08:00 Neut % (Auto) 36.2 % (50.0-68.0) L 09/05/18 08:00 Lymph % (Auto) 42.5 % (22.0-35.0) H 09/05/18 08:00 Oliver % (Auto) 19.7 % (1.0-6.0) H 09/05/18 08:00 Eos % (Auto) 1.3 % (1.5-5.0) L 09/05/18 08:00 Baso % (Auto) 0.3 % (0.0-3.0) 09/05/18 08:00 Lymph # (Auto) 1.6 (1.2-3.4) 09/05/18 08:00 [place] # (Auto) 0.8 (0.1-0.6) H 09/05/18 08:00 Eos # (Auto) 0.1 (0.0-0.7) 09/05/18 08:00 Baso # (Auto) 0.01 K/mm3 (0.0-2.0) 09/05/18 08:00 Absolute Neuts (auto) 1.40 (1.4-6.5) 09/05/18 08:00 Neutrophils % (Manual) 43 % (50.0-70.0) L 09/04/18 06:00 Lymphocytes % (Manual) 37 % (22.0-35.0) H 09/04/18 06:00 Monocytes % (Manual) 18 % (1.0-6.0) H 09/04/18 06:00 Eosinophils % (Manual) 1 % (0.0-3.0) 09/04/18 06:00 Basophils % (Manual) 1 % (0.0-1.0) 09/04/18 06:00 Platelet Evaluation Normal (NORMAL) 09/04/18 06:00 ESR 19 mm/hr (0.00-15.0) H 09/02/18 10:30 Sodium 136 mmol/L (132-148) 09/05/18 08:00 Potassium 4.0 mmol/L (3.6-5.0) 09/05/18 08:00 Chloride 104 mmol/L (98-107) 09/05/18 08:00 Carbon Dioxide 28 mmol/L (21-33) 09/05/18 08:00 Anion Gap 8 (10-20) L 09/05/18 08:00 BUN 17 mg/dL (7-21) 09/05/18 08:00 Creatinine 0.9 mg/dl (0.8-1.5) 09/05/18 08:00 Est GFR ( Amer) > 60 09/05/18 08:00 Est GFR (Non-Af Amer) > 60 09/05/18 08:00 POC Glucose (mg/dL) 110 mg/dL (65-110) 08/30/18 19:01 Random Glucose 76 mg/dL (70-110) 09/05/18 08:00 Calcium 8.9 mg/dL (8.4-10.5) 09/05/18 08:00 Phosphorus 3.5 mg/dL (2.5-4.5) 09/01/18 07:00 Magnesium 2.1 mg/dL (1.7-2.2) 09/01/18 07:00 Total Bilirubin 0.2 mg/dL (0.2-1.3) 09/05/18 08:00 AST 47 U/L (17-59) 09/05/18 08:00 ALT 36 U/L (7-56) 09/05/18 08:00 Alkaline Phosphatase 61 U/L (38-126) 09/05/18 08:00 Total Creatine Kinase 97 U/L (35-230) 08/30/18 19:25 Troponin I < 0.01 ng/mL 08/30/18 19:25 C-Reactive Protein 12.50 mg/L (0.0-9.9) H 09/02/18 10:30 Total Protein 6.8 g/dL (5.8-8.3) 09/05/18 08:00 Albumin 3.3 g/dL (3.0-4.8) 09/05/18 08:00 Globulin 3.6 gm/dL 09/05/18 08:00 Albumin/Globulin Ratio 0.9 (1.1-1.8) L 09/05/18 08:00 Procalcitonin < 0.05 NG/ML (0.19-0.49) L 08/30/18 23:11 Urine Color Yellow (YELLOW) 08/31/18 07:00 Urine Appearance Sl cloudy (CLEAR) 08/31/18 07:00 Urine pH 6.0 (4.7-8.0) 08/31/18 07:00 Ur Specific [place] 1.020 (1.005-1.035) 08/31/18 07:00 Urine Protein Negative mg/dL (<30 mg/dL) 08/31/18 07:00 Urine Glucose (UA) Negative mg/dL (NEGATIVE) 08/31/18 07:00 Urine Ketones Negative mg/dL (NEGATIVE) 08/31/18 07:00 Urine Blood Moderate (NEGATIVE) H 08/31/18 07:00 Urine Nitrate Positive (NEGATIVE) H 08/31/18 07:00 Urine Bilirubin Negative (NEGATIVE) 08/31/18 07:00 Urine Urobilinogen 0.2 E.U./dL (<1 E.U./dL) 08/31/18 07:00 Ur Leukocyte Esterase Negative [place]/uL (NEGATIVE) 08/31/18 07:00 Urine RBC 15 - 20 /hpf (0-2) H 08/31/18 07:00 Urine WBC 0 - 2 /hpf (0-6) 08/31/18 07:00 Ur Epithelial Cells None /hpf (0-5) 08/31/18 07:00 Urine Bacteria Many /hpf (NONE) 08/31/18 07:00 Urine Other Uyeast /hpf 08/31/18 07:00 Urine Opiates Screen Negative (NEGATIVE) 09/01/18 14:15 Urine Methadone Screen Negative (NEGATIVE) 09/01/18 14:15 Ur Barbiturates Screen Negative (NEGATIVE) 09/01/18 14:15 Valproic Acid 75 ug/mL (50.0-100.0) 08/31/18 07:00 Ur Phencyclidine Scrn Negative (NEGATIVE) 09/01/18 14:15 Ur Amphetamines Screen Negative (NEGATIVE) 09/01/18 14:15 U Benzodiazepines Scrn Negative (NEGATIVE) 09/01/18 14:15 U Oth Cocaine Metabols Negative (NEGATIVE) 09/01/18 14:15 U Cannabinoids Screen Negative (NEGATIVE) 09/01/18 14:15 Alcohol, Quantitative < 10 mg/dL (0-10) 08/30/18 19:25 HIV 1&2 Ag/Ab, 4th Gen Nonreactive (Nonreactive) 09/02/18 10:30 - Hospital Course Hospital Course: Mitchell Louis, PGY-1 Discharge Summary for Hospitalist Service Mr. Markham is a 77 year old male with past medical history significant for CVA with residual right sided weakness, hypertension, BPH, and seizures that presented to the emergency room secondary to family being concerned about alter ed mental status. Patient was noted to then have a seizure episode. Neurology was consulted. Differentials included refractory epilepsy, for which patient was placed on 1000 mg IV Keppra BID. Patient was without more seizures during hospital stay. Patient initially was prescribed Ativan as needed but never required it. In the ED, Head CT was performed which showed unchanged chronic encephalomalacia in the left posterior frontal lobe; no acute intracranial findings per reading. Brain MRI was then ordered which showed no acute intracranial abnormality; cystic encephalomalacia and gliosis in the left posterior parietal lobe, sequela of remote MCA territory infarction, moderate chronic microangiopathic changes and mild age-related global parenchymal volume loss per radiology read. Patient was found to have gram positive bacteremia and Klebisella and enterococcus (likely colonization). bacteriuria. One blood culture positive for Streptococcus Sanguis I. ID Dr Aguilar was consulted. Patient was initially put on 1 gm Rocephin and Vancomycin, which was then transitioned to Rocephin 2gram IV daily for 10 days. Day 2 on day of discharge. 2d echo per tape transferrer showed technically limited study, some images were of suboptimal quality, dilated right atrium, normal LV size and systolic function, mild tricuspid regurgitation, no vegetations seen but valve imaging suboptimal. For patient's essential hypertension, we continued Norvasc. 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 For chronic BPH and urinary retention, the alcocer catheter is currently in place. Voiding trials were attempted unsuccessfully. For GI/DVT prophylaxis, patient was given Protonix/heparin. Physical therapy was consulted, who recommended subacute rehab placement. Social work managed placement logistics. Patient has chronic expressive aphasia but remains without pain. Patient is doing voiding trials. Patient denies chest pain and shortness of breath. No palpitations. No nausea, vomiting, or abdominal pain. No headaches or dizziness. No fevers or chills. Alcocer catheter and peripheral IV line in place. Plan was discussed with patient and family members along with social media coordinator in detail and to patient satisfaction. All questions were answered. Patient and family understands need to follow up with PMD, Neurologist,to continue with the IV antibiotic for 8 more days and to have voiding trials at [facility] to remove Alcocer catheter soon. For further details of hospital stay, please consult EMR. Patient seen, case reviewed and plan approved by Dr. Bruce Varela. Mitchell Louis, PGY-1 Discharge Exam - Additional Findings Additional findings: - Constitutional Appears: No Acute Distress, Chronically Ill - Head Exam Head Exam: ATRAUMATIC, NORMOCEPHALIC - Eye Exam Eye Exam: EOMI, PERRL - ENT Exam ENT Exam: Mucous Membranes Moist - Neck Exam Neck Exam: Full ROM. absent: Lymphadenopathy, Thyromegaly - Respiratory Exam Respiratory Exam: Clear to Ausculation Bilateral, NORMAL BREATHING PATTERN. absent: Rales, Rhonchi, Wheezes - Cardiovascular Exam Cardiovascular Exam: REGULAR RHYTHM, RRR, +S1, +S2. absent: Gallop, Rubs, Murmur - GI/Abdominal Exam GI & Abdominal Exam: Soft, Normal Bowel Sounds. absent: Guarding, Tenderness - Extremities Exam Extremities Exam: Pedal Edema (R sided non-pitting pedal edema) Additional comments: R-sided muscle atrophy both RUE and RLE c/w chronic R-sided hemiplagia, 3/5 muscle strength RLE, 4/5 RUE - Back Exam Back Exam: NORMAL INSPECTION - Neurological Exam Neurological Exam: Alert, Awake Additional comments: continues to have expressive aphasia but is awake and alert , patient is oriented x 2 - Skin Skin Exam: Dry, Intact, Warm Discharge Plan - Discharge Medications Prescriptions: levETIRAcetam [Keppra] 1,000 mg PO Q12H #60 tab - Follow Up Plan Condition: FAIR Disposition: [facility] Instructions: Stroke (DC), Seizures, Adult (DC), Urinary Retention (DC), Syncope (DC) Additional Instructions: You are to be discharged to a subacute rehab facility. Please follow up with Dr Cash your primary care doctor within 3-5 days. Please follow up with neurologist Dr. Damian within one week of discharge from [facility]. Please continue your Keppra and all medications as prescribed. Your HOME Depakote has been discontinued by the neurologist. As you are discharged from the hospital with the Alcocer catheter, please have voiding trials done at [facility] in order to remove the catheter in the near future. Please continue your Rocephin 2 gm IV daily for another eight days through your peripheral IV, starting tomorrow 09/06/18. Please have CBC and CMP drawn tomorrow 09/06/18 and then as per your physician at the subacute rehab. Should symptoms return, please visit nearest emergency department. Referrals: Caroline Damian MD [Staff Provider] - Jaqueline Cash MD [Primary Care Provider] - <Karen Varela - Last Filed: 09/06/18 08:54> Provider - Provider Date of Admission: 08/30/18 20:42 Attending physician: Emilio Chiu MD Primary care physician: Jaqueline Cash MD Consults: 08/30/18 21:01 Physician Consult Routine Comment: Consulting Provider: Caroline Damian Consulting Physician: Caroline Damian Reason for Consult: seizure 08/30/18 23:43 Social Work Referral Routine Comment: Lars Score 15 Physician Instructions: Reason For Exam: Protocol 08/31/18 15:45 Case Management Referral Routine Comment: Physician Instructions: Reason For Exam: VIRIDIANA placement Reason for Referral: Discharge Planning 09/01/18 20:38 Physician Consult Routine Comment: Consulting Provider: Rodrigo Aguilar Consulting Physician: Rodrigo Aguilar Reason for Consult: gram positive cocci bacteremia Hospital Course - Lab Results Lab Results: Micro Results 09/02/18 10:30 Blood Blood Culture - Preliminary NO GROWTH AFTER 3 DAYS 09/02/18 10:15 Blood Blood Culture - Preliminary NO GROWTH AFTER 3 DAYS 08/30/18 21:35 Blood Blood Culture - Final NO GROWTH AFTER 5 DAYS 08/30/18 21:35 Blood Gram Stain - Final TEST NOT PERFORMED 08/30/18 21:20 Blood S.aureus & Coag-Neg Staph PNA FISH - Final TEST NOT PERFORMED 08/30/18 21:20 Blood Blood Culture - Final Streptococcus Sangius I 08/30/18 21:20 Blood Gram Stain - Final 08/31/18 07:17 Urine,Alcocer Urine Culture - Final Klebsiella Pneumoniae Ssp Pneu Enterococcus Faecium Most Recent Lab Values WBC 3.9 10^3/uL (4.5-11.0) L 09/05/18 08:00 RBC 4.36 10^6/uL (3.5-6.1) 09/05/18 08:00 Hgb 12.1 g/dL (14.0-18.0) L 09/05/18 08:00 Hct 36.8 % (42.0-52.0) L 09/05/18 08:00 MCV 84.4 fl (80.0-105.0) 09/05/18 08:00 MCH 27.8 pg (25.0-35.0) 09/05/18 08:00 MCHC 32.9 g/dl (31.0-37.0) 09/05/18 08:00 RDW 13.7 % (11.5-14.5) 09/05/18 08:00 Plt Count 236 10^3/uL (120.0-450.0) 09/05/18 08:00 MPV 9.0 fl (7.0-11.0) 09/05/18 08:00 Neut % (Auto) 36.2 % (50.0-68.0) L 09/05/18 08:00 Lymph % (Auto) 42.5 % (22.0-35.0) H 09/05/18 08:00 [place] % (Auto) 19.7 % (1.0-6.0) H 09/05/18 08:00 Eos % (Auto) 1.3 % (1.5-5.0) L 09/05/18 08:00 Baso % (Auto) 0.3 % (0.0-3.0) 09/05/18 08:00 Lymph # (Auto) 1.6 (1.2-3.4) 09/05/18 08:00 [place] # (Auto) 0.8 (0.1-0.6) H 09/05/18 08:00 Eos # (Auto) 0.1 (0.0-0.7) 09/05/18 08:00 Baso # (Auto) 0.01 K/mm3 (0.0-2.0) 09/05/18 08:00 Absolute Neuts (auto) 1.40 (1.4-6.5) 09/05/18 08:00 Neutrophils % (Manual) 43 % (50.0-70.0) L 09/04/18 06:00 Lymphocytes % (Manual) 37 % (22.0-35.0) H 09/04/18 06:00 Monocytes % (Manual) 18 % (1.0-6.0) H 09/04/18 06:00 Eosinophils % (Manual) 1 % (0.0-3.0) 09/04/18 06:00 Basophils % (Manual) 1 % (0.0-1.0) 09/04/18 06:00 Platelet Evaluation Normal (NORMAL) 09/04/18 06:00 ESR 19 mm/hr (0.00-15.0) H 09/02/18 10:30 Sodium 136 mmol/L (132-148) 09/05/18 08:00 Potassium 4.0 mmol/L (3.6-5.0) 09/05/18 08:00 Chloride 104 mmol/L (98-107) 09/05/18 08:00 Carbon Dioxide 28 mmol/L (21-33) 09/05/18 08:00 Anion Gap 8 (10-20) L 09/05/18 08:00 BUN 17 mg/dL (7-21) 09/05/18 08:00 Creatinine 0.9 mg/dl (0.8-1.5) 09/05/18 08:00 Est GFR ( Amer) > 60 09/05/18 08:00 Est GFR (Non-Af Amer) > 60 09/05/18 08:00 POC Glucose (mg/dL) 110 mg/dL (65-110) 08/30/18 19:01 Random Glucose 76 mg/dL (70-110) 09/05/18 08:00 Calcium 8.9 mg/dL (8.4-10.5) 09/05/18 08:00 Phosphorus 3.5 mg/dL (2.5-4.5) 09/01/18 07:00 Magnesium 2.1 mg/dL (1.7-2.2) 09/01/18 07:00 Total Bilirubin 0.2 mg/dL (0.2-1.3) 09/05/18 08:00 AST 47 U/L (17-59) 09/05/18 08:00 ALT 36 U/L (7-56) 09/05/18 08:00 Alkaline Phosphatase 61 U/L (38-126) 09/05/18 08:00 Total Creatine Kinase 97 U/L (35-230) 08/30/18 19:25 Troponin I < 0.01 ng/mL 08/30/18 19:25 C-Reactive Protein 12.50 mg/L (0.0-9.9) H 09/02/18 10:30 Total Protein 6.8 g/dL (5.8-8.3) 09/05/18 08:00 Albumin 3.3 g/dL (3.0-4.8) 09/05/18 08:00 Globulin 3.6 gm/dL 09/05/18 08:00 Albumin/Globulin Ratio 0.9 (1.1-1.8) L 09/05/18 08:00 Procalcitonin < 0.05 NG/ML (0.19-0.49) L 08/30/18 23:11 Urine Color Yellow (YELLOW) 08/31/18 07:00 Urine Appearance Sl cloudy (CLEAR) 08/31/18 07:00 Urine pH 6.0 (4.7-8.0) 08/31/18 07:00 Ur Specific [place] 1.020 (1.005-1.035) 08/31/18 07:00 Urine Protein Negative mg/dL (<30 mg/dL) 08/31/18 07:00 Urine Glucose (UA) Negative mg/dL (NEGATIVE) 08/31/18 07:00 Urine Ketones Negative mg/dL (NEGATIVE) 08/31/18 07:00 Urine Blood Moderate (NEGATIVE) H 08/31/18 07:00 Urine Nitrate Positive (NEGATIVE) H 08/31/18 07:00 Urine Bilirubin Negative (NEGATIVE) 08/31/18 07:00 Urine Urobilinogen 0.2 E.U./dL (<1 E.U./dL) 08/31/18 07:00 Ur Leukocyte Esterase Negative [place]/uL (NEGATIVE) 08/31/18 07:00 Urine RBC 15 - 20 /hpf (0-2) H 08/31/18 07:00 Urine WBC 0 - 2 /hpf (0-6) 08/31/18 07:00 Ur Epithelial Cells None /hpf (0-5) 08/31/18 07:00 Urine Bacteria Many /hpf (NONE) 08/31/18 07:00 Urine Other Uyeast /hpf 08/31/18 07:00 Urine Opiates Screen Negative (NEGATIVE) 09/01/18 14:15 Urine Methadone Screen Negative (NEGATIVE) 09/01/18 14:15 Ur Barbiturates Screen Negative (NEGATIVE) 09/01/18 14:15 Valproic Acid 75 ug/mL (50.0-100.0) 08/31/18 07:00 Ur Phencyclidine Scrn Negative (NEGATIVE) 09/01/18 14:15 Ur Amphetamines Screen Negative (NEGATIVE) 09/01/18 14:15 U Benzodiazepines Scrn Negative (NEGATIVE) 09/01/18 14:15 U Oth Cocaine Metabols Negative (NEGATIVE) 09/01/18 14:15 U Cannabinoids Screen Negative (NEGATIVE) 09/01/18 14:15 Alcohol, Quantitative < 10 mg/dL (0-10) 08/30/18 19:25 HIV 1&2 Ag/Ab, 4th Gen Nonreactive (Nonreactive) 09/02/18 10:30 Attending/Attestation - Attestation I have personally seen and examined this patient.: Yes I have fully participated in the care of the patient.: Yes I have reviewed all pertinent clinical information, including history, physical exam and plan: Yes Notes (Text): Please note this DC summary is for 09/05/18 Patient seen and examined by me with resident at approximately 9:50AM and prior to discharge on 09/05/18. Case including discharge plan discussed with resident. Agree with above with following additions/corrections. Patient is a 78 year old male with past medical history significant for CVA with residual right sided weakness, hypertension, BPH, and seizures that presented to the emergency room secondary to family being concerned about altered mental status the lead to a seizure episode. Please see H&P for full details. Patient was found to have refractory epilepsy, gram-positive bacteremia with Streptococcus sanguis, UTI, essential hypertension, history of multiple CVAs with residual right-sided weakness and expressive aphasia, and BPH. Neurology was consulted. Head CT per radiologist showed there is chronic encephalomalacia in the left posterior frontal lobe, this is unchanged; no acute intracranial findings. Brain MRI per radiologist showed no acute intracranial abnormality; cystic encephalomalacia and gliosis in the left posterior parietal lobe, sequela of remote MCA territory infarction, moderate chronic microangiopathic changes and mild age-related global parenchymal volume loss. Patient's home depakote was stopped. Patient was placed on IV Keppra and then Keppra 1000mg Po q12hrs. Patient did not have further seizures in the hospital. Patient was seen by physical therapy who recommended VIRIDIANA. Patient was also found to have UTI with Klebsiella and enterococcus. This is likely colonization per infectious disease doctor. He was initially treated with Rocephin and vancomycin. Alcocer catheter was placed for urinary retention. Voiding trials were attempted but were unsuccessful. Instructions sent to subacute rehabilitation to continue voiding trials to remove Alcocer catheter. Patient was also found to have gram-positive bacteremia with 1 bottle being positive for Streptococcus sanguis. ID was following and recommended Rocephin 2 g IV daily for a total of 10 days. 2d echo per tape transferrer showed technically limited study, some images were of suboptimal quality, dilated right atrium, normal LV size and systolic function, mild tricuspid regurgitation, no vegetations seen but valve imaging suboptimal. Patient was continued on Norvasc for hypertension. Patient was continued on aspirin and Lipitor for history of multiple CVAs. Patient was continued on Flomax for BPH. Patient was cleared for discharge by neurologist and infectious disease doctor. Patient remained afebrile. Patient was feeling better. Patient was discharged to subacute rehabilitation. On day of discharge, patient stated he was feeling pretty good. Patient with chronic expressive aphasia. Patient denied chest pain or palpitations. No shortness of breath. No nausea or vomiting. No abdominal pain. No headache or change in vision. No dizziness. No numbness or tingling. No fevers or chills. No dysuria. Physical exam: General: Awake and alert, lying in bed in no acute distress. HEENT: Normocephalic, atraumatic, Extraocular muscles intact, pupils equal and reactive, no scleral icterus. Oropharynx is pink and moist. Neck is supple. Cardiovascular: Normal rhythm. Normal S1 and S2. No murmurs, rubs, or gallops appreciated. Pulmonary: Normal respiratory effort. No rhonchi, rales, or wheezing appreciated. Gastrointestinal: Soft. Nontender. Nondistended. Positive bowel sounds all 4 quadrants. No guarding. Musculoskeletal: Moves all extremities. No calf tenderness. No edema appreciated. : Alcocer catheter in place with light yellow urine output. Central nervous system: Awake and alert. Positive expressive aphasia. Positive right upper and lower extremity weakness when compared to left (chronic from previous strokes). Dermatologic: Skin warm and dry. Please see chart for full details. Follow up instructions: Patient discharged to [facility]. Patient to follow up with primary medical doctor within 3-5 days. Patient to follow up with Neurologist within one week. Patient to stop home Depakote and take Keppra. Patient to have voiding trials at [facility] to remove alcocer catheter. Patient to complete 8 more days of Rocephin. All instructions explained to the patient in detail. Patient both understands and agrees to all instructions. Written instructions also given. Time spent in discharging the patient including chart review, medication reconciliation, discussion with the patient, medical housekeeper, consultants, and nursing staff was approximately 45 minutes.
--- NOTE | 2018-09-05 22:34 | PN ---
DATE: 09/05/2018 SUBJECTIVE: The patient is in bed, in no acute distress, nontoxic. PHYSICAL EXAMINATION: VITAL SIGNS: Temperature is 98, blood pressure 130/80, respiratory rate of 18, and heart rate of 75. HEENT: Unremarkable. NECK: Supple. LUNGS: Decreased breath sounds. HEART: Normal S1 and S2. ABDOMEN: Soft. LABORATORY DATA: Reveals of white count of 3.9, hemoglobin of 12, and platelets of 236. Chemistry reveals a BUN of 17 and creatinine of 0.9. HIV is negative. Repeat blood cultures are no growth and initial one had Streptococcus sanguinis. ASSESSMENT AND PLAN: This is a 78-year-old male who was seen earlier this morning in room 364, bed 1, who was admitted with sepsis with Streptococcus sanguinis bacteremia admitted with seizures, doing much better now with history of cerebrovascular accident and right sided deficit by history and urinary retention, arthritis. Had an echo which was negative for endocarditis. one bottle was positive, will complete 10 of 14 days of ceftriaxone today is day #4 of 10 of 14 days of ceftriaxone. Rodrigo Aguilar MD
[2018-09-05 23:36] VITALS: BP 114/75
== END 2018-09-06 00:01 | DRG 101 ==
LOC: ED 18:39 → ERH 20:42 → 2RSO 22:42 → 3RNO 09-02 17:09
PROVIDERS: ADMIT Internal Medicine; ATTEND Internal Medicine
DX: G40.919 Epilepsy, unspecified, intractable, without status epilepticus (principal); N39.0 Urinary tract infection, site not specified; I69.351 Hemiplegia and hemiparesis following cerebral infarction affecting right dominant side; R78.81 Bacteremia; B96.1 Klebsiella pneumoniae [K. pneumoniae] as the cause of diseases classified elsewhere; G93.89 Other specified disorders of brain; I10 Essential (primary) hypertension; M19.90 Unspecified osteoarthritis, unspecified site; N40.1 Benign prostatic hyperplasia with lower urinary tract symptoms; R33.8 Other retention of urine; I69.320 Aphasia following cerebral infarction; Z74.01 Bed confinement status; Z87.891 Personal history of nicotine dependence; I07.1 Rheumatic tricuspid insufficiency; B95.4 Other streptococcus as the cause of diseases classified elsewhere; E78.5 Hyperlipidemia, unspecified; B95.2 Enterococcus as the cause of diseases classified elsewhere